=== PATIENT | male | born 1955 | race Native Hawaiian/Other Pacific Islander ===

== ENCOUNTER 2016-10-26 11:57 | Inpatient (IN) | payer SELFPAY ==
[2016-10-26 11:58] VITALS: BMI 22.1
[2016-10-26 14:19] LABS: BASO # 0.1 K/uL (0.0-0.2); BASO % 1.3 % (0.0-2.0); EOS % 0.1 % (0.0-4.0); LYMPH # 5.6 K/uL (1.0-4.3); LYMPH % 48.5 % (20.0-40.0); MEAN CELL VOLUME 97.7 fL (80.0-94.0); MEAN CORPUSCULAR HEMOGLOBIN 32.1 pg (27.0-31.0); MEAN CORPUSCULAR HGB CONC 32.9 g/dL (33.0-37.0); MEAN PLATELET VOLUME 10.3 fL (7.2-11.7); MONO # 1.2 K/uL (0.0-0.8); MONO % 10.1 % (0.0-10.0); NRBC % 0.1 % (0.0-2.0); RED CELL DISTRIBUTION WIDTH 13.9 % (11.5-14.5); WHITE BLOOD COUNT 11.5 K/uL (4.8-10.8)
[2016-10-26 14:29] LABS: CHLORIDE 95 mmol/L (98-107); POTASSIUM 4.2 mmol/L (3.6-5.2); SODIUM 133 mmol/L (132-148)
[2016-10-26 14:32] LABS: ALB/GLOB RATIO 2.2 (1.0-2.1); ALKALINE PHOSPHATASE 79 U/L (38-126); ALT/SGPT 36 U/L (21-72); AST/SGOT 29 U/L (17-59); BILIRUBIN,TOTAL 0.9 mg/dL (0.2-1.3); BLOOD UREA NITROGEN 14 mg/dL (9-20); CARBON DIOXIDE 25 mmol/L (22-30); GFR AFRICAN-AMERICAN > 60; GLUCOSE,RANDOM 92 mg/dL (75-110); TOTAL PROTEIN 7.5 g/dL (6.3-8.3)
--- NOTE | 2016-10-26 15:05 | RAD ---
PROCEDURE: CHEST RADIOGRAPH, 1 VIEW. Portable study 12:45 HISTORY: SOB COMPARISON: 12/23/2012 FINDINGS: LUNGS: Clear. PLEURA: No pneumothorax or pleural fluid seen. CARDIOVASCULAR: No radiographic findings to suggest acute or significant cardiovascular disease. Venous access catheter in stable, satisfactory position. OSSEOUS STRUCTURES: No significant abnormalities. VISUALIZED UPPER ABDOMEN: Normal. OTHER FINDINGS: None. IMPRESSION: No active disease. No acute/significant interval changes.
--- NOTE | 2016-10-26 15:37 | C.PDOC ---
History Of Present Illness 61 yr old male presents to the ER with complaints of rash to the right arm for the last week. Patient reports history of similar rash to different parts of body and with multiple different diagnosis. Patient also reports history of CLL , last chemo was 18 months ago and is on post chemo medication for white blood cells. Patient denies fever, chills, chest pain, SOB, nausea, vomiting, abdominal pain, weakness or numbness. Time Seen by Provider: 10/26/16 13:21 Chief Complaint (Nursing): Abnormal Skin Integrity History Per: Patient History/Exam Limitations: no limitations Onset/Duration Of Symptoms: Days (! week ) Past Medical History Reviewed: Historical Data, Nursing Documentation, Vital Signs Vital Signs: Last Vital Signs Temp 98.2 F 10/26/16 15:59 Pulse 93 H 10/26/16 15:59 Resp 18 10/26/16 15:59 BP 104/70 10/26/16 15:59 Pulse Ox 96 10/26/16 15:59 - Medical History PMH: Diabetes, HTN, Hypercholesterolemia, Hypothyroidism - [facility] Procedures PACKED CELL TRANSFUSION (12/23/12) PLATELET TRANSFUSION (12/23/12) Family History: States: No Known Family Hx - Social History Hx Tobacco Use: No Hx Alcohol Use: No Hx Substance Use: No - Immunization History Hx Tetanus Toxoid Vaccination: No Review Of Systems Except As Marked, All Systems Reviewed And Found Negative. Constitutional: Negative for: Fever, Chills Cardiovascular: Negative for: Chest Pain Respiratory: Negative for: Shortness of Breath Gastrointestinal: Negative for: Nausea, Vomiting, Abdominal Pain Skin: Positive for: Rash (Right arm ) Neurological: Negative for: Weakness, Numbness Physical Exam - Physical Exam Appears: Well, Non-toxic, No Acute Distress Skin: Warm, Dry, Rash (Vesicular rash from the right upper arm to the mid forearm, medial aspect with confluent fluid filled vesicles in various stages of eruption. Occasional dark scabs, mildly pruritic. Non tender. ) Head: Atraumatic, Normacephalic Eye(s): bilateral: Normal Inspection, PERRL, EOMI Chest: Symmetrical, No Tenderness Cardiovascular: Rhythm Regular, No Murmur Respiratory: Normal Breath Sounds, No Rales, No Rhonchi, No Wheezing Extremity: Normal ROM, No Swelling Neurological/Psych: Oriented x3, Normal Speech, Normal Motor ED Course And Treatment - Laboratory Results Result Diagrams: 10/26/16 14:14 10/26/16 14:14 Lab Interpretation: Abnormal (mild leukocytosis ? related to local infection of R arm/rash or Enbrovika to elevate WBC's) ECG: Interpreted By Me ECG Rhythm: Sinus Rhythm ECG Interpretation: Normal Rate From EC (BPM ) O2 Sat by Pulse Oximetry: 96 (RA) Pulse Ox Interpretation: Normal - Radiology CXR: Interpreted by Me CXR Interpretation: Yes: No Acute Disease Progress Note: defer abx until dx with Hospitalists, as this is a chronic problem with prior dx and ? related to his CLL Reevaluation Time: 15:36 Reassessment Condition: Improved - Physician Consult Information Outcome Of Conversation: 1340: d/w Dr. Davis Azevedo- will consult, unaware of prior rash for this pt. 1350: d/w Dr. Phelps- Hospitalist Face Man- ok to Obs, will eval and abx prn Medical Decision Making Medical Decision Making: PLAN: * CXR * EKG * Troponin * CBC * CMP * Motrin PO Disposition Doctor Will See Patient In The: Hospital Counseled Patient/Family Regarding: Studies Performed, Diagnosis - Disposition Disposition: HOSPITALIZED Disposition Time: 15:37 Condition: FAIR - Clinical Impression Clinical Impression: Skin lesion - Scribe Statement The provider has reviewed the documentation as recorded by the Jamiibromario Cordero Provider Attestation: All medical record entries made by the Kristofer were at my direction and personally dictated by me. I have reviewed the chart and agree that the record accurately reflects my personal performance of the history, physical exam, medical decision making, and the department course for this patient. I have also personally directed, reviewed, and agree with the discharge instructions and disposition.
[2016-10-26] MEDS: Metoprolol Succinate 25 mg XL Tab PO SCH (18:33)
[2016-10-26] MEDS ORDERED: Epinephrine /Lidocaine HCL 1:100,000/2% 30 ml INFIL ONE (19:00)
--- NOTE | 2016-10-26 21:51 | CP.PCM.HP ---
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 Patient reports the rash is affecting his upper arms and trunk. He first developed the rash approximately one year ago. He states it usually affects his arms, abdomen, and chest and describes it has pustules and "fluid-filled" small bumps that eventually leak fluid. The rash he developed yesterday was more severe with larger vesicles/bullae with some dark fluid filled lesions which is an atypical presentation for him. He admits to pruritus and pain to the right extremity where the process is most severe. Patient denies starting any new prescribed or agza-esp-moebowh medications. He notes his manager fashion/oncologist , Dr. Azevedo, started him on Imbruvica which has significantly helped his condition. He also denies sun exposure. Patient believes his rash is associated with his CLL. He has not tried using ointment/cream for the rash. Patient denies family history of skin disease. Patient denies fever, chills, diaphoresis , chest pain, shortness of breath, nausea, vomiting, abdominal pain, lower extremity swelling/pain. PMD: Dr. Yady Simonsc: Dr. Azevedo PMH: as per HPI Medications: Imbruvica 140 mg 3 capsules po daily, Lisinopril 2.5 mg po daily, Metformin 500 mg po BID, Levothyroxine 112 mcg po AM, and Vitamin D3 5000 IU once weekly Allergies: rituximab, peanut, Simvastatin Family History: not-pertinent Surgical History: Right port-a-cath placement Social: denies tobacco, alcohol, and illicit drug use Present on Admission - Present on Admission Any Indicators Present on Admission: No History of DVT/PE: No History of Uncontrolled Diabetes: No Urinary Catheter: No Decubitus Ulcer Present: No Review of Systems - Constitutional Constitutional: absent: Chills, Fever, Headache, Night Sweats - EENT Eyes: absent: Blurred Vision, Change in Vision Nose/Mouth/Throat: absent: Nasal Congestion, Nasal Discharge - Cardiovascular Cardiovascular: absent: Chest Pain, Diaphoresis, Dyspnea, Leg Edema, Palpitations - Respiratory Respiratory: absent: Cough - Gastrointestinal Gastrointestinal: absent: Abdominal Pain, Constipation, Diarrhea, Nausea, Vomiting - Genitourinary Genitourinary: absent: Difficulty Urinating, Dysuria - Musculoskeletal Musculoskeletal: Radiating Pain into Limb. absent: Back Pain - Integumentary Integumentary: Changing Lesions, Lesions, Pruritus, Rash, Skin Pain - Neurological Neurological: absent: Abnormal Gait, Numbness, Tingling, Weakness - Psychiatric Psychiatric: absent: Anxiety, Depression Past Patient History - Past Medical History & Family History Past Medical History?: Yes - Past Social History Smoking Status: Never Smoked - CARDIAC Hx Hypercholesterolemia: Yes Hx Hypertension: Yes - PULMONARY Hx Respiratory Disorders: No - NEUROLOGICAL Hx Neurological Disorder: No - HEENT Hx HEENT Problems: No - RENAL Hx Chronic Kidney Disease: No - ENDOCRINE/METABOLIC Hx Hypothyroidism: Yes - HEMATOLOGICAL/ONCOLOGICAL Hx Leukemia: Yes (CLL) - INTEGUMENTARY Hx Dermatological Problems: No - MUSCULOSKELETAL/RHEUMATOLOGICAL Hx Musculoskeletal Disorders: No Hx Falls: No - GASTROINTESTINAL Hx Gastrointestinal Disorders: Yes Hx Hemorrhoids: Yes - GENITOURINARY/GYNECOLOGICAL Hx Genitourinary Disorders: No - PSYCHIATRIC Hx Substance Use: No - SURGICAL HISTORY Hx Surgeries: Yes Hx Vascular Access Device: Yes (RIGHT STEVEN CATH) - ANESTHESIA Hx Anesthesia: Yes Hx Anesthesia Reactions: No Meds Allergies/Adverse Reactions: Allergies Allergy/AdvReac Type Severity Reaction Status Date / Time rituximab Allergy Severe SHORTNESS Verified 10/26/16 12:18 OF BREATH peanut Allergy Mild ITCHING Verified 10/26/16 12:18 Physical Exam - Constitutional Appears: Non-toxic - Head Exam Head Exam: ATRAUMATIC, NORMAL INSPECTION, NORMOCEPHALIC - Eye Exam Eye Exam: EOMI, Normal appearance, PERRL. absent: Scleral icterus - ENT Exam ENT Exam: Mucous Membranes Dry Additional comments: no oral ulcerations/lesions noted - Neck Exam Neck exam: Positive for: Full Rom. Negative for: Lymphadenopathy, Tenderness - Respiratory Exam Respiratory Exam: Clear to Auscultation Bilateral, NORMAL BREATHING PATTERN. absent: Rales, Rhonchi, Wheezes - Cardiovascular Exam Cardiovascular Exam: REGULAR RHYTHM, +S1, +S2 - GI/Abdominal Exam GI & Abdominal Exam: Normal Bowel Sounds, Soft. absent: Distended, Firm, Rigid - Extremities Exam Extremities exam: Positive for: normal capillary refill, pedal pulses present. Negative for: pedal edema, tenderness - Back Exam Back exam: rash noted. absent: NORMAL INSPECTION Additional comments: multiple grouped tense vesicles to right upper back - Neurological Exam Neurological exam: Alert, CN II-XII Intact, Oriented x3 - Psychiatric Exam Psychiatric exam: Normal Affect, Normal Mood - Skin Additional comments: pustules, vesicles ranging in size, and dark crusted lesions affecting most severely right forearm from wrist to antecubital fossa grouped tense vesicles to R olecronon, lateral axilla, and right upper back few pustules and vesicles affecting left upper extremity multiple 1 mm pustules to abdomen, chest and neck Results - Vital Signs Recent Vital Signs: Last Vital Signs Temp 98.2 F 10/26/16 15:59 Pulse 93 H 10/26/16 15:59 Resp 18 10/26/16 15:59 BP 104/70 10/26/16 15:59 Pulse Ox 96 10/26/16 18:28 - Labs Result Diagrams: 10/26/16 14:14 10/26/16 14:14 Labs: Laboratory Results - last 24 hr 10/26/16 18:01 POC Glucose (mg/dL) 257 H Assessment & Plan - Assessment and Plan (Free Text) Assessment: Vesicular/Pustular Rash rule out porphyria cutanea tarda vs. pseudoporphyria vs. dermatitis herpetiformis vs. other bullous disease Leukocytes 11.5, Hemoglobin 12.8, MCV 97.7 Neutrophil 40.0%, Lymphocytes 48.5, Eos 0.1% f/u 24 hr porphyrins/porphobilinogen f/u porphobilinogen urine, random f/u iron studies f/u endomysial scr IgA, tissue transglutaminase AB IGA, IgA Punch Biopsy x3 performed - sent to [facility] for H&E and direct immunofluorescense Tylenol 650 mg po q6 PRN for pain control Consider starting Hydroxyzine for pruritus Chronic Lymphocytic Leukemia Inspector Open Die/Oncologist, Dr. Azevedo, consulted Patient on Imbruvica 140 mg 3 capsules po daily Diabetes Mellitus Type II RISS Continue home medication Metformin 500 mg po BID Accuchecks Monitor Hypertension 104/70 Continue home medications Lisinopril 2.5 mg po daily and Metoprolol 25 mg po BID Monitor Hyperlipidemia Continue home medication Gemfibrozil 600 mg po BID Prophylaxis SCD Heart Healthy Diet Chemical VTE CI due to thrombocytopenia - Date & Time Date: 10/26/16 Time: 22:22 <Francisco Javier Pineda - Last Filed: 10/27/16 08:48> Results - Vital Signs Recent Vital Signs: Last Vital Signs Temp 98.3 F 10/27/16 08:34 Pulse 80 10/27/16 08:34 Resp 20 10/27/16 08:34 BP 116/76 10/27/16 08:34 Pulse Ox 96 10/27/16 08:34 - Labs Result Diagrams: 10/26/16 14:14 10/26/16 14:14 Labs: Laboratory Results - last 24 hr 10/26/16 10/26/16 10/27/16 18:01 21:59 07:49 POC Glucose (mg/dL) 257 H 111 H Iron 44 L IgA 10/27/16 07:49 POC Glucose (mg/dL) Iron IgA 70.5 Attending/Attestation - Attestation I have personally seen and examined this patient.: Yes I have fully participated in the care of the patient.: Yes I have reviewed all pertinent clinical information: Yes Notes (Text): 10/27/16 08:48 Patient was seen and examined at bedside with the resident at the time of admission Discussed the plan of care with the resident and agree with the above history and physical and assessment/plan but the resident.
[2016-10-26] MEDS: Bacitracin 500 Units/gm Oint Foilpak UD TOP SCH (22:43)
[2016-10-27] MEDS: (Novolog) Insulin Aspart, Recombinant 100 u/ml 10 ml vial SC SCH ×3 (08:25→16:25)
[2016-10-27 08:39] LABS: IRON 44 ug/dL (49-181)
[2016-10-27] MEDS: Metoprolol Succinate 25 mg XL Tab PO SCH ×2 (10:07→17:23)
[2016-10-27] MEDS ORDERED: Tramadol 25 mg PO PRN (11:51)
[2016-10-27] MEDS: Bacitracin Ointment 30 GM TUBE TOP SCH (12:22)
[2016-10-27] MEDS: Bacitracin 500 Units/gm Oint Foilpak UD TOP SCH (12:23)
--- NOTE | 2016-10-27 15:43 | CP.PCM.PN ---
<López Brown - Last Filed: 10/27/16 19:57> Subjective - Date & Time of Evaluation Date of Evaluation: 10/27/16 Time of Evaluation: 11:00 - Subjective Subjective: Dr. Pineda note: Patient seen in room with medical attending Dr. Pineda. Patient is still complaing of sharp pain and a rash on his right arm. He says the pain going around the inner part of his hand to the middle and is a deep and sharp pain. He says the pain start when he started notice the rash develop about a year ago. Objective - Vital Signs/Intake and Output Vital Signs (last 24 hours): Temp Pulse Resp BP Pulse Ox 98.3 F 80 20 116/76 96 10/27/16 08:34 10/27/16 08:34 10/27/16 08:34 10/27/16 08:34 10/27/16 08:34 Intake and Output: 10/27/16 10/27/16 06:59 18:59 Intake Total 200 Output Total 550 Balance -350 - Medications Medications: Current Medications Acetaminophen (Tylenol 325mg Tab) 650 mg PO Q6 PRN PRN Reason: Pain, Mild (1-3) Last Admin: 10/27/16 06:46 Dose: 650 mg Bacitracin (Bacitracin) 0 gm TOP DAILY [facility] Last Admin: 10/27/16 12:22 Dose: 1 applic Gabapentin (Neurontin) 100 mg PO TID [facility] Last Admin: 10/27/16 14:17 Dose: 100 mg Gemfibrozil (Lopid) 600 mg PO BID [facility] Last Admin: 10/27/16 10:07 Dose: 600 mg Acyclovir 650 mg/ Sodium (Chloride) 100 mls @ 100 mls/hr IV Q8H [facility] Last Admin: 10/27/16 14:17 Dose: 100 mls/hr Insulin Aspart (Novolog) 0 unit SC TIDAC [facility] PRN Reason: Protocol Last Admin: 10/27/16 12:21 Dose: 2 unit Levothyroxine Sodium (Synthroid) 150 mcg PO DAILY@0630 [facility] Lisinopril (Zestril) 2.5 mg PO DAILY [facility] Last Admin: 10/27/16 10:07 Dose: 2.5 mg Metformin HCl (Glucophage) 500 mg PO BID [facility] Last Admin: 10/27/16 10:06 Dose: 500 mg Metoprolol Succinate (Toprol Xl) 25 mg PO BID [facility] Last Admin: 10/27/16 10:07 Dose: 25 mg Tramadol HCl (Ultram) 50 mg PO TID PRN PRN Reason: Pain, moderate (4-7) Last Admin: 10/27/16 12:21 Dose: 50 mg - Constitutional Appears: Non-toxic, No Acute Distress - Head Exam Head Exam: NORMAL INSPECTION - Eye Exam Pupil Exam: NORMAL ACCOMODATION - Respiratory Exam Respiratory Exam: Clear to Ausculation Bilateral - Cardiovascular Exam Cardiovascular Exam: REGULAR RHYTHM, RRR, +S1, +S2. absent: Gallop, Rubs - GI/Abdominal Exam GI & Abdominal Exam: Soft, Normal Bowel Sounds. absent: Tenderness - Extremities Exam Extremities Exam: Normal Inspection - Back Exam Back Exam: NORMAL INSPECTION - Psychiatric Exam Psychiatric exam: Normal Affect, Normal Mood Assessment and Plan - Assessment and Plan (Free Text) Assessment: Vesicular/Pustular Rash 10/27: Biopsy taken yesterday, have started Acyclovir because this could be Herpis Zoster, consulted ID Dr. Blunt and also have put patient in contact isolation. Iron studies show iron is low but ferritin is normal, other labs and biopsy results pending. rule out porphyria cutanea tarda vs. pseudoporphyria vs. dermatitis herpetiformis vs. other bullous disease Leukocytes 11.5, Hemoglobin 12.8, MCV 97.7 Neutrophil 40.0%, Lymphocytes 48.5, Eos 0.1% f/u 24 hr porphyrins/porphobilinogen f/u porphobilinogen urine, random f/u iron studies f/u endomysial scr IgA, tissue transglutaminase AB IGA, IgA Punch Biopsy x3 performed - sent to [facility] for H&E and direct immunofluorescense Tylenol 650 mg po q6 PRN for pain control Consider starting Hydroxyzine for pruritus Chronic Lymphocytic Leukemia Fiber Optic Assembler/Oncologist, Dr. Azevedo, consulted Patient on Imbruvica 140 mg 3 capsules po daily Diabetes Mellitus Type II RISS Continue home medication Metformin 500 mg po BID Accuchecks Monitor Hypertension 104/70 Continue home medications Lisinopril 2.5 mg po daily and Metoprolol 25 mg po BID Monitor Hyperlipidemia Continue home medication Gemfibrozil 600 mg po BID Prophylaxis SCD Heart Healthy Diet Chemical VTE CI due to thrombocytopenia <Francisco Javier Pineda M - Last Filed: 10/28/16 07:57> Objective - Vital Signs/Intake and Output Vital Signs (last 24 hours): Temp Pulse Resp BP Pulse Ox 100.8 F H 103 H 20 102/69 94 L 10/27/16 23:23 10/27/16 23:23 10/27/16 23:23 10/27/16 23:23 10/27/16 23:23 Intake and Output: 10/28/16 10/28/16 06:59 18:59 Intake Total 1000 Output Total 900 Balance 100 - Medications Medications: Current Medications Acetaminophen (Tylenol 325mg Tab) 650 mg PO Q6 PRN PRN Reason: Pain, Mild (1-3) Last Admin: 10/27/16 06:46 Dose: 650 mg Bacitracin (Bacitracin) 0 gm TOP DAILY [facility] Last Admin: 10/27/16 12:22 Dose: 1 applic Gabapentin (Neurontin) 100 mg PO TID [facility] Last Admin: 10/27/16 17:23 Dose: 100 mg Gemfibrozil (Lopid) 600 mg PO BID [facility] Last Admin: 10/27/16 17:23 Dose: 600 mg Acyclovir 650 mg/ Sodium (Chloride) 100 mls @ 100 mls/hr IV Q8H [facility] Last Admin: 10/28/16 05:10 Dose: 100 mls/hr Insulin Aspart (Novolog) 0 unit SC TIDAC [facility] PRN Reason: Protocol Last Admin: 10/27/16 16:25 Dose: Not Given Levothyroxine Sodium (Synthroid) 150 mcg PO DAILY@0630 [facility] Last Admin: 10/28/16 06:02 Dose: 150 mcg Lisinopril (Zestril) 2.5 mg PO DAILY [facility] Last Admin: 10/27/16 10:07 Dose: 2.5 mg Metformin HCl (Glucophage) 500 mg PO BID [facility] Last Admin: 10/27/16 17:24 Dose: 500 mg Metoprolol Succinate (Toprol Xl) 25 mg PO BID [facility] Last Admin: 10/27/16 17:23 Dose: 25 mg Tramadol HCl (Ultram) 50 mg PO TID PRN PRN Reason: Pain, moderate (4-7) Last Admin: 10/27/16 12:21 Dose: 50 mg - Labs Labs: 10/27/16 17:17 10/27/16 17:17 Attending/Attestation - Attestation I have personally seen and examined this patient.: Yes I have fully participated in the care of the patient.: Yes I have reviewed all pertinent clinical information, including history, physical exam and plan: Yes Notes (Text): 10/28/16 07:56 Patient seen and examined at bedside The rash is becoming painful and confluent Likely herpes zoster in view of patient's immunocompromise state with CLL although in remission We will put the patient in isolation and start acyclovir I would also requested infectious disease consultation I agree with the history and physical and assessment/plan by the resident with the necessary amendments stated here.
[2016-10-27 17:46] LABS: BASO % 0.6 % (0.0-2.0); EOS % 0.1 % (0.0-4.0); LYMPH # 2.8 K/uL (1.0-4.3); LYMPH % 33.9 % (20.0-40.0); MEAN CELL VOLUME 98.4 fL (80.0-94.0); MEAN CORPUSCULAR HEMOGLOBIN 32.6 pg (27.0-31.0); MEAN CORPUSCULAR HGB CONC 33.2 g/dL (33.0-37.0); MEAN PLATELET VOLUME 9.9 fL (7.2-11.7); MONO # 0.9 K/uL (0.0-0.8); MONO % 10.6 % (0.0-10.0); NRBC % 0.1 % (0.0-2.0); PLATELET COUNT 122 K/uL (130-400); RED CELL DISTRIBUTION WIDTH 13.7 % (11.5-14.5); WHITE BLOOD COUNT 8.4 K/uL (4.8-10.8)
[2016-10-27 17:56] LABS: CHLORIDE 92 mmol/L (98-107); POTASSIUM 4.3 mmol/L (3.6-5.2); SODIUM 130 mmol/L (132-148)
[2016-10-27 17:58] LABS: ALB/GLOB RATIO 1.7 (1.0-2.1); ALKALINE PHOSPHATASE 70 U/L (38-126); AST/SGOT 28 U/L (17-59); BILIRUBIN,TOTAL 0.6 mg/dL (0.2-1.3); CARBON DIOXIDE 25 mmol/L (22-30); GFR AFRICAN-AMERICAN > 60; TOTAL PROTEIN 6.5 g/dL (6.3-8.3)
[2016-10-27 17:59] LABS: ALT/SGPT 31 U/L (21-72); BLOOD UREA NITROGEN 17 mg/dL (9-20); CALCIUM 8.5 mg/dl (8.6-10.4); GLUCOSE,RANDOM 92 mg/dL (75-110)
[2016-10-27 18:24] LABS: METAMYELOCYTE 1 % (0-0); MYELOCYTE 4 % (0-0); NEUTROPHIL 29 % (50-75); TOTAL CELLS COUNTED 100
[2016-10-27 18:25] LABS: LARGE PLATELETS PRESENT
--- NOTE | 2016-10-27 20:42 | CP.PCM.CON ---
History of Present Illness - History of Present Illness History of Present Illness: 61 year old male with a history of CLL on Imbruvica admitted with a vesicular rash involving his right upper extremity. He noticed non tender vesicles erupt over his right arm which then became more erythematous and painful. This concerned him and prompted him to come to the ER. He denies fevers and chills. Past medical history: HTN, CLL Past surgical history: None Family history: Denies hematologic and oncologic problems Social history: Denies tobacco, alcohol, and illicit drug use. Allergies: NKDA Review of systems: All remaining review of systems including HEENT, cardiovascular, respiratory, gastrointestinal, genitourinary, musculoskeletal, dermatologic, neurologic, and psychiatric are negative unless mentioned in the HPI. Past Patient History - Past Medical History & Family History Past Medical History?: Yes - Past Social History Smoking Status: Never Smoked - CARDIAC Hx Hypercholesterolemia: Yes Hx Hypertension: Yes - PULMONARY Hx Respiratory Disorders: No - NEUROLOGICAL Hx Neurological Disorder: No - HEENT Hx HEENT Problems: No - RENAL Hx Chronic Kidney Disease: No - ENDOCRINE/METABOLIC Hx Hypothyroidism: Yes - HEMATOLOGICAL/ONCOLOGICAL Hx Leukemia: Yes (CLL) - INTEGUMENTARY Hx Dermatological Problems: No - MUSCULOSKELETAL/RHEUMATOLOGICAL Hx Musculoskeletal Disorders: No Hx Falls: No - GASTROINTESTINAL Hx Gastrointestinal Disorders: Yes Hx Hemorrhoids: Yes - GENITOURINARY/GYNECOLOGICAL Hx Genitourinary Disorders: No - PSYCHIATRIC Hx Substance Use: No - SURGICAL HISTORY Hx Surgeries: Yes Hx Vascular Access Device: Yes (RIGHT STEVEN CATH) - ANESTHESIA Hx Anesthesia: Yes Hx Anesthesia Reactions: No Meds Allergies/Adverse Reactions: Allergies Allergy/AdvReac Type Severity Reaction Status Date / Time rituximab Allergy Severe SHORTNESS Verified 10/26/16 12:18 OF BREATH peanut Allergy Mild ITCHING Verified 10/26/16 12:18 - Medications Medications: Current Medications Acetaminophen (Tylenol 325mg Tab) 650 mg PO Q6 PRN PRN Reason: Pain, Mild (1-3) Last Admin: 10/27/16 06:46 Dose: 650 mg Bacitracin (Bacitracin) 0 gm TOP DAILY [facility] Last Admin: 10/27/16 12:22 Dose: 1 applic Gabapentin (Neurontin) 100 mg PO TID [facility] Last Admin: 10/27/16 17:23 Dose: 100 mg Gemfibrozil (Lopid) 600 mg PO BID [facility] Last Admin: 10/27/16 17:23 Dose: 600 mg Acyclovir 650 mg/ Sodium (Chloride) 100 mls @ 100 mls/hr IV Q8H [facility] Last Admin: 10/27/16 14:17 Dose: 100 mls/hr Insulin Aspart (Novolog) 0 unit SC TIDAC [facility] PRN Reason: Protocol Last Admin: 10/27/16 16:25 Dose: Not Given Levothyroxine Sodium (Synthroid) 150 mcg PO DAILY@0630 [facility] Lisinopril (Zestril) 2.5 mg PO DAILY [facility] Last Admin: 10/27/16 10:07 Dose: 2.5 mg Metformin HCl (Glucophage) 500 mg PO BID [facility] Last Admin: 10/27/16 17:24 Dose: 500 mg Metoprolol Succinate (Toprol Xl) 25 mg PO BID [facility] Last Admin: 10/27/16 17:23 Dose: 25 mg Tramadol HCl (Ultram) 50 mg PO TID PRN PRN Reason: Pain, moderate (4-7) Last Admin: 10/27/16 12:21 Dose: 50 mg Physical Exam - Head Exam Head Exam: ATRAUMATIC - Eye Exam Eye Exam: Normal appearance - ENT Exam ENT Exam: Mucous Membranes Dry - Respiratory Exam Respiratory Exam: NORMAL BREATHING PATTERN - Cardiovascular Exam Cardiovascular Exam: +S1, +S2 - GI/Abdominal Exam GI & Abdominal Exam: Normal Bowel Sounds - Neurological Exam Neurological exam: Oriented x3 - Psychiatric Exam Psychiatric exam: Normal Affect, Normal Mood - Skin Skin Exam: Warm Results - Vital Signs Recent Vital Signs: Last Vital Signs Temp 98.3 F 10/27/16 16:36 Pulse 108 H 10/27/16 16:36 Resp 20 10/27/16 16:36 BP 122/78 10/27/16 16:36 Pulse Ox 98 10/27/16 16:36 - Labs Result Diagrams: 10/27/16 17:17 10/27/16 17:17 Labs: Laboratory Results - last 24 hr 10/26/16 10/27/16 10/27/16 21:59 07:49 07:49 WBC RBC Hgb Hct MCV MCH MCHC RDW Plt Count MPV Neut % (Auto) Lymph % (Auto) [place] % (Auto) Eos % (Auto) Baso % (Auto) Neut # Lymph # [place] # Eos # Baso # Neutrophils % (Manual) Band Neutrophils % Lymphocytes % (Manual) Monocytes % (Manual) Metamyelocytes % Myelocytes % Platelet Estimate Large Platelets Hypochromasia (manual) Anisocytosis (manual) Microcytosis (manual) Macrocytosis (manual) Sodium Potassium Chloride Carbon Dioxide Anion Gap BUN Creatinine Est GFR ( Amer) Est GFR (Non-Af Amer) POC Glucose (mg/dL) 111 H Random Glucose Calcium Iron 44 L TIBC 304 % Saturation 15 L 21 Ferritin Total Bilirubin AST ALT Alkaline Phosphatase Total Protein Albumin Globulin Albumin/Globulin Ratio IgA 10/27/16 10/27/16 10/27/16 07:49 07:49 08:05 WBC RBC Hgb Hct MCV MCH MCHC RDW Plt Count MPV Neut % (Auto) Lymph % (Auto) [place] % (Auto) Eos % (Auto) Baso % (Auto) Neut # Lymph # [place] # Eos # Baso # Neutrophils % (Manual) Band Neutrophils % Lymphocytes % (Manual) Monocytes % (Manual) Metamyelocytes % Myelocytes % Platelet Estimate Large Platelets Hypochromasia (manual) Anisocytosis (manual) Microcytosis (manual) Macrocytosis (manual) Sodium Potassium Chloride Carbon Dioxide Anion Gap BUN Creatinine Est GFR ( Amer) Est GFR (Non-Af Amer) POC Glucose (mg/dL) 109 Random Glucose Calcium Iron TIBC % Saturation Ferritin 1520.0 Total Bilirubin AST ALT Alkaline Phosphatase Total Protein Albumin Globulin Albumin/Globulin Ratio IgA 70.5 10/27/16 10/27/16 10/27/16 11:27 16:14 17:17 WBC 8.4 RBC 3.76 L Hgb 12.3 Hct 37.0 MCV 98.4 H MCH 32.6 H MCHC 33.2 RDW 13.7 Plt Count 122 L MPV 9.9 Neut % (Auto) 54.8 Lymph % (Auto) 33.9 [place] % (Auto) 10.6 H Eos % (Auto) 0.1 Baso % (Auto) 0.6 Neut # 4.6 Lymph # 2.8 [place] # 0.9 H Eos # 0.0 Baso # 0.0 Neutrophils % (Manual) 29 L Band Neutrophils % 3 H Lymphocytes % (Manual) 57 H Monocytes % (Manual) 6 Metamyelocytes % 1 H Myelocytes % 4 H Platelet Estimate Slightly decreased L Large Platelets Present Hypochromasia (manual) Slight Anisocytosis (manual) Slight Microcytosis (manual) Slight Macrocytosis (manual) Slight Sodium Potassium Chloride Carbon Dioxide Anion Gap BUN Creatinine Est GFR ( Amer) Est GFR (Non-Af Amer) POC Glucose (mg/dL) 179 H 121 H Random Glucose Calcium Iron TIBC % Saturation Ferritin Total Bilirubin AST ALT Alkaline Phosphatase Total Protein Albumin Globulin Albumin/Globulin Ratio IgA 10/27/16 17:17 WBC RBC Hgb Hct MCV MCH MCHC RDW Plt Count MPV Neut % (Auto) Lymph % (Auto) [place] % (Auto) Eos % (Auto) Baso % (Auto) Neut # Lymph # [place] # Eos # Baso # Neutrophils % (Manual) Band Neutrophils % Lymphocytes % (Manual) Monocytes % (Manual) Metamyelocytes % Myelocytes % Platelet Estimate Large Platelets Hypochromasia (manual) Anisocytosis (manual) Microcytosis (manual) Macrocytosis (manual) Sodium 130 L Potassium 4.3 Chloride 92 L Carbon Dioxide 25 Anion Gap 17 BUN 17 Creatinine 0.9 Est GFR ( Amer) > 60 Est GFR (Non-Af Amer) > 60 POC Glucose (mg/dL) Random Glucose 92 Calcium 8.5 L Iron TIBC % Saturation Ferritin Total Bilirubin 0.6 AST 28 ALT 31 Alkaline Phosphatase 70 Total Protein 6.5 Albumin 4.1 Globulin 2.4 Albumin/Globulin Ratio 1.7 IgA Assessment & Plan (1) Anemia Assessment and Plan: chronic disease, CLL and Imbruvica no transfusion indication Status: Acute (2) Thrombocytopenia Assessment and Plan: CLL and Imbruvica mild Status: Acute (3) CLL (chronic lymphocytic leukemia) Assessment and Plan: on Imbruvica in remission Thank you for this interesting consult. Status: Acute
--- NOTE | 2016-10-27 22:05 | CP.PCM.CON ---
History of Present Illness - History of Present Illness History of Present Illness: dictated Past Patient History - Past Medical History & Family History Past Medical History?: Yes - Past Social History Smoking Status: Never Smoked - CARDIAC Hx Hypercholesterolemia: Yes Hx Hypertension: Yes - PULMONARY Hx Respiratory Disorders: No - NEUROLOGICAL Hx Neurological Disorder: No - HEENT Hx HEENT Problems: No - RENAL Hx Chronic Kidney Disease: No - ENDOCRINE/METABOLIC Hx Hypothyroidism: Yes - HEMATOLOGICAL/ONCOLOGICAL Hx Leukemia: Yes (CLL) - INTEGUMENTARY Hx Dermatological Problems: No - MUSCULOSKELETAL/RHEUMATOLOGICAL Hx Musculoskeletal Disorders: No Hx Falls: No - GASTROINTESTINAL Hx Gastrointestinal Disorders: Yes Hx Hemorrhoids: Yes - GENITOURINARY/GYNECOLOGICAL Hx Genitourinary Disorders: No - PSYCHIATRIC Hx Substance Use: No - SURGICAL HISTORY Hx Surgeries: Yes Hx Vascular Access Device: Yes (RIGHT STEVEN CATH) - ANESTHESIA Hx Anesthesia: Yes Hx Anesthesia Reactions: No Meds Allergies/Adverse Reactions: Allergies Allergy/AdvReac Type Severity Reaction Status Date / Time rituximab Allergy Severe SHORTNESS Verified 10/26/16 12:18 OF BREATH peanut Allergy Mild ITCHING Verified 10/26/16 12:18 - Medications Medications: Current Medications Acetaminophen (Tylenol 325mg Tab) 650 mg PO Q6 PRN PRN Reason: Pain, Mild (1-3) Last Admin: 10/27/16 06:46 Dose: 650 mg Bacitracin (Bacitracin) 0 gm TOP DAILY [facility] Last Admin: 10/27/16 12:22 Dose: 1 applic Gabapentin (Neurontin) 100 mg PO TID [facility] Last Admin: 10/27/16 17:23 Dose: 100 mg Gemfibrozil (Lopid) 600 mg PO BID [facility] Last Admin: 10/27/16 17:23 Dose: 600 mg Acyclovir 650 mg/ Sodium (Chloride) 100 mls @ 100 mls/hr IV Q8H [facility] Last Admin: 10/27/16 21:06 Dose: 100 mls/hr Insulin Aspart (Novolog) 0 unit SC TIDAC [facility] PRN Reason: Protocol Last Admin: 10/27/16 16:25 Dose: Not Given Levothyroxine Sodium (Synthroid) 150 mcg PO DAILY@0630 [facility] Lisinopril (Zestril) 2.5 mg PO DAILY [facility] Last Admin: 10/27/16 10:07 Dose: 2.5 mg Metformin HCl (Glucophage) 500 mg PO BID [facility] Last Admin: 10/27/16 17:24 Dose: 500 mg Metoprolol Succinate (Toprol Xl) 25 mg PO BID [facility] Last Admin: 10/27/16 17:23 Dose: 25 mg Tramadol HCl (Ultram) 50 mg PO TID PRN PRN Reason: Pain, moderate (4-7) Last Admin: 10/27/16 12:21 Dose: 50 mg Results - Vital Signs Recent Vital Signs: Last Vital Signs Temp 98.3 F 10/27/16 16:36 Pulse 108 H 10/27/16 16:36 Resp 20 10/27/16 16:36 BP 122/78 10/27/16 16:36 Pulse Ox 98 10/27/16 16:36 - Labs Result Diagrams: 10/27/16 17:17 10/27/16 17:17 Labs: Laboratory Results - last 24 hr 10/27/16 10/27/16 10/27/16 07:49 07:49 07:49 WBC RBC Hgb Hct MCV MCH MCHC RDW Plt Count MPV Neut % (Auto) Lymph % (Auto) [place] % (Auto) Eos % (Auto) Baso % (Auto) Neut # Lymph # [place] # Eos # Baso # Neutrophils % (Manual) Band Neutrophils % Lymphocytes % (Manual) Monocytes % (Manual) Metamyelocytes % Myelocytes % Platelet Estimate Large Platelets Hypochromasia (manual) Anisocytosis (manual) Microcytosis (manual) Macrocytosis (manual) Sodium Potassium Chloride Carbon Dioxide Anion Gap BUN Creatinine Est GFR ( Amer) Est GFR (Non-Af Amer) POC Glucose (mg/dL) Random Glucose Calcium Iron 44 L TIBC 304 % Saturation 15 L 21 Ferritin 1520.0 Total Bilirubin AST ALT Alkaline Phosphatase Total Protein Albumin Globulin Albumin/Globulin Ratio IgA 10/27/16 10/27/16 10/27/16 07:49 08:05 11:27 WBC RBC Hgb Hct MCV MCH MCHC RDW Plt Count MPV Neut % (Auto) Lymph % (Auto) [place] % (Auto) Eos % (Auto) Baso % (Auto) Neut # Lymph # [place] # Eos # Baso # Neutrophils % (Manual) Band Neutrophils % Lymphocytes % (Manual) Monocytes % (Manual) Metamyelocytes % Myelocytes % Platelet Estimate Large Platelets Hypochromasia (manual) Anisocytosis (manual) Microcytosis (manual) Macrocytosis (manual) Sodium Potassium Chloride Carbon Dioxide Anion Gap BUN Creatinine Est GFR ( Amer) Est GFR (Non-Af Amer) POC Glucose (mg/dL) 109 179 H Random Glucose Calcium Iron TIBC % Saturation Ferritin Total Bilirubin AST ALT Alkaline Phosphatase Total Protein Albumin Globulin Albumin/Globulin Ratio IgA 70.5 10/27/16 10/27/16 10/27/16 16:14 17:17 17:17 WBC 8.4 RBC 3.76 L Hgb 12.3 Hct 37.0 MCV 98.4 H MCH 32.6 H MCHC 33.2 RDW 13.7 Plt Count 122 L MPV 9.9 Neut % (Auto) 54.8 Lymph % (Auto) 33.9 [place] % (Auto) 10.6 H Eos % (Auto) 0.1 Baso % (Auto) 0.6 Neut # 4.6 Lymph # 2.8 [place] # 0.9 H Eos # 0.0 Baso # 0.0 Neutrophils % (Manual) 29 L Band Neutrophils % 3 H Lymphocytes % (Manual) 57 H Monocytes % (Manual) 6 Metamyelocytes % 1 H Myelocytes % 4 H Platelet Estimate Slightly decreased L Large Platelets Present Hypochromasia (manual) Slight Anisocytosis (manual) Slight Microcytosis (manual) Slight Macrocytosis (manual) Slight Sodium 130 L Potassium 4.3 Chloride 92 L Carbon Dioxide 25 Anion Gap 17 BUN 17 Creatinine 0.9 Est GFR ( Amer) > 60 Est GFR (Non-Af Amer) > 60 POC Glucose (mg/dL) 121 H Random Glucose 92 Calcium 8.5 L Iron TIBC % Saturation Ferritin Total Bilirubin 0.6 AST 28 ALT 31 Alkaline Phosphatase 70 Total Protein 6.5 Albumin 4.1 Globulin 2.4 Albumin/Globulin Ratio 1.7 IgA 10/27/16 21:25 WBC RBC Hgb Hct MCV MCH MCHC RDW Plt Count MPV Neut % (Auto) Lymph % (Auto) [place] % (Auto) Eos % (Auto) Baso % (Auto) Neut # Lymph # [place] # Eos # Baso # Neutrophils % (Manual) Band Neutrophils % Lymphocytes % (Manual) Monocytes % (Manual) Metamyelocytes % Myelocytes % Platelet Estimate Large Platelets Hypochromasia (manual) Anisocytosis (manual) Microcytosis (manual) Macrocytosis (manual) Sodium Potassium Chloride Carbon Dioxide Anion Gap BUN Creatinine Est GFR ( Amer) Est GFR (Non-Af Amer) POC Glucose (mg/dL) 160 H Random Glucose Calcium Iron TIBC % Saturation Ferritin Total Bilirubin AST ALT Alkaline Phosphatase Total Protein Albumin Globulin Albumin/Globulin Ratio IgA
--- NOTE | 2016-10-28 04:28 | CP.PCM.PN ---
<Rajat Medina - Last Filed: 10/28/16 07:30> Subjective - Date & Time of Evaluation Date of Evaluation: 10/28/16 Time of Evaluation: 04:25 - Subjective Subjective: PGY-[address] Pineda's service: Pt seen and examined at bedside. Nursing reports no acute events overnight. Pt comfortably watching TV with at bedside. Pt reports his rash has "stopped getting worse," but is still painful especially his right hand. He denies needing to increase his pain meds. He is tolerating diet, and denies problems urinating or moving bowels. He denies fever, chills, abdominal pain, n/v/d/c. Objective - Vital Signs/Intake and Output Vital Signs (last 24 hours): Temp Pulse Resp BP Pulse Ox 100.8 F H 103 H 20 102/69 94 L 10/27/16 23:23 10/27/16 23:23 10/27/16 23:23 10/27/16 23:23 10/27/16 23:23 - Medications Medications: Current Medications Acetaminophen (Tylenol 325mg Tab) 650 mg PO Q6 PRN PRN Reason: Pain, Mild (1-3) Last Admin: 10/27/16 06:46 Dose: 650 mg Bacitracin (Bacitracin) 0 gm TOP DAILY [facility] Last Admin: 10/27/16 12:22 Dose: 1 applic Gabapentin (Neurontin) 100 mg PO TID [facility] Last Admin: 10/27/16 17:23 Dose: 100 mg Gemfibrozil (Lopid) 600 mg PO BID [facility] Last Admin: 10/27/16 17:23 Dose: 600 mg Acyclovir 650 mg/ Sodium (Chloride) 100 mls @ 100 mls/hr IV Q8H [facility] Last Admin: 10/27/16 21:06 Dose: 100 mls/hr Insulin Aspart (Novolog) 0 unit SC TIDAC [facility] PRN Reason: Protocol Last Admin: 10/27/16 16:25 Dose: Not Given Levothyroxine Sodium (Synthroid) 150 mcg PO DAILY@0630 [facility] Lisinopril (Zestril) 2.5 mg PO DAILY [facility] Last Admin: 10/27/16 10:07 Dose: 2.5 mg Metformin HCl (Glucophage) 500 mg PO BID [facility] Last Admin: 10/27/16 17:24 Dose: 500 mg Metoprolol Succinate (Toprol Xl) 25 mg PO BID [facility] Last Admin: 10/27/16 17:23 Dose: 25 mg Tramadol HCl (Ultram) 50 mg PO TID PRN PRN Reason: Pain, moderate (4-7) Last Admin: 10/27/16 12:21 Dose: 50 mg - Labs Labs: 10/27/16 17:17 10/27/16 17:17 - Constitutional Appears: Non-toxic, No Acute Distress - Head Exam Head Exam: ATRAUMATIC, NORMOCEPHALIC - Eye Exam Eye Exam: EOMI Pupil Exam: PERRL - ENT Exam ENT Exam: Mucous Membranes Moist Additional comments: no oral ulcers - Neck Exam Neck Exam: Full ROM - Respiratory Exam Respiratory Exam: Clear to Ausculation Bilateral, NORMAL BREATHING PATTERN. absent: Rales, Rhonchi, Wheezes - Cardiovascular Exam Cardiovascular Exam: REGULAR RHYTHM, +S1, +S2 - GI/Abdominal Exam GI & Abdominal Exam: Soft, Normal Bowel Sounds. absent: Tenderness - Extremities Exam Extremities Exam: absent: Normal Inspection Additional comments: Right extremity showing: Pruritic Vesicular rash, with Skin Pain especially in non-erupted vesicles on right hand Few pustules and vesicles on LUE Multiple 1 mm pustules on abd, chest, neck - Neurological Exam Neurological Exam: Alert, Awake, Oriented x3 - Psychiatric Exam Psychiatric exam: Normal Affect, Normal Mood - Skin Skin Exam: Dry, Normal Color, Warm Assessment and Plan - Assessment and Plan (Free Text) Plan: Vesicular/Pustular Rash 10/28: Awaiting biopsy results, consulted ID Dr. Blunt and also have put patient in contact isolation - Acyclovir 650mg IV Q8H - f/u reccs Iron studies show iron is low but ferritin is normal, other labs and biopsy results pending rule out porphyria cutanea tarda vs. pseudoporphyria vs. dermatitis herpetiformis vs. other bullous disease WBC decreased from 11.5 to 8.4, bands decreasing f/u 24 hr porphyrins/porphobilinogen f/u porphobilinogen urine, random f/u endomysial scr IgA, tissue transglutaminase AB IGA, IgA: 70.5 WNL Punch Biopsy x3 performed - sent to [facility] for H&E and direct immunofluorescense Tylenol 650 mg po q6 PRN, Ultram 50mg PO TID PRN for pain control Chronic Lymphocytic Leukemia Medical Office Technician/Oncologist, Dr. Azevedo, consulted Patient on Imbruvica 140 mg 3 capsules po daily Diabetes Mellitus Type II RISS Continue home medication Metformin 500 mg po BID Accuchecks Monitor Hypertension 104/70 Continue home medications Lisinopril 2.5 mg po daily and Metoprolol 25 mg po BID Monitor Hyperlipidemia Continue home medication Gemfibrozil 600 mg po BID Prophylaxis SCD Heart Healthy Diet Chemical VTE CI due to thrombocytopenia <Francisco Javier Pineda - Last Filed: 10/28/16 15:36> Objective - Vital Signs/Intake and Output Vital Signs (last 24 hours): Temp Pulse Resp BP Pulse Ox 99.3 F 101 H 20 113/73 93 L 10/28/16 09:00 10/28/16 09:00 10/28/16 09:00 10/28/16 09:00 10/28/16 09:00 - Medications Medications: Current Medications Acetaminophen (Tylenol 325mg Tab) 650 mg PO Q6 PRN PRN Reason: Pain, Mild (1-3) Last Admin: 10/27/16 06:46 Dose: 650 mg Bacitracin (Bacitracin) 0 gm TOP DAILY [facility] Last Admin: 10/28/16 10:13 Dose: 1 applic Gabapentin (Neurontin) 100 mg PO TID [facility] Last Admin: 10/28/16 13:39 Dose: 100 mg Gemfibrozil (Lopid) 600 mg PO BID [facility] Last Admin: 10/28/16 10:12 Dose: 600 mg Acyclovir 650 mg/ Sodium (Chloride) 100 mls @ 100 mls/hr IV Q8H [facility] Last Admin: 10/28/16 13:39 Dose: 100 mls/hr Insulin Aspart (Novolog) 0 unit SC TIDAC [facility] PRN Reason: Protocol Last Admin: 10/28/16 07:59 Dose: Not Given Levothyroxine Sodium (Synthroid) 150 mcg PO DAILY@0630 [facility] Last Admin: 10/28/16 06:02 Dose: 150 mcg Lisinopril (Zestril) 2.5 mg PO DAILY [facility] Last Admin: 10/28/16 10:12 Dose: 2.5 mg Metformin HCl (Glucophage) 500 mg PO BID [facility] Last Admin: 10/28/16 10:12 Dose: 500 mg Metoprolol Succinate (Toprol Xl) 25 mg PO BID [facility] Last Admin: 10/28/16 10:12 Dose: 25 mg Tramadol HCl (Ultram) 50 mg PO TID PRN PRN Reason: Pain, moderate (4-7) Last Admin: 10/28/16 10:12 Dose: 50 mg Attending/Attestation - Attestation I have personally seen and examined this patient.: Yes I have fully participated in the care of the patient.: Yes I have reviewed all pertinent clinical information, including history, physical exam and plan: Yes Notes (Text): 10/28/16 15:35 Patient was seen and examined at bedside with the resident Patient is in contact isolation Continue acyclovir for herpes zoster ID is on board Follow up skin biopsy results I discussed the plan of care with the resident and agree with the above history and physical and assessment/plan by the resident.
[2016-10-28] MEDS: Levothyroxine 150 MCG TAB PO SCH (06:02)
[2016-10-28] MEDS: (Novolog) Insulin Aspart, Recombinant 100 u/ml 10 ml vial SC SCH ×2 (07:59→16:41)
--- NOTE | 2016-10-28 08:12 | CON ---
DATE: 10/27/2016 REQUESTING PHYSICIAN: Dr. Pineda This patient is a 61-year-old male. He was admitted with a rash on the right arm, which was from the last week. He also underwent a biopsy. I was asked to see him today. He has reportedly has CLL an d has not had chemo for 18 months, but he is on some medication. He did mention a name. He denies a [place] fever or chills. He does complain of some pain in the right wrist, but has no lesions there. He some lesions on the back, which probably are from the same dermatome, but I also see a few scattered skin lesions, which is surprising as the other lesions look like zoster, but it may be. We will keep him in isolation to rule out any chickenpox. PAST SURGICAL HISTORY: Significant for diabetes, hypertension, high cholesterol, hypothyroidism. He has received platelets in the past. SOCIAL HISTORY: Negative for smoking or drinking or any drug abuse. He denied any fever or chills. Denies any chest pain. Came in with a rash. Has no nausea, no vomit ing and no weakness, no numbness. The resident had already started him on acyclovir, which I agree with it, 650 q. 8 hours, bacitracin, Neurontin, Lopid, NovoLog, levothyroxine, Zestril, metformin, metoprolol and he is on Ultram for the pain and he is on gabapentin, bacitracin and he is on acyclovir. PHYSICAL EXAMINATION: VITAL SIGNS: I find his temperature is 98.3, heart rate of 108, blood pressure 122/78, respirations are 20. GENERAL: He is awake, alert. HEENT: Head is atraumatic, normocephalic. Pupils are reacting to light. Throat, no congestion, no thrush seen. NECK: Supple. JVP is flat. LUNGS: Clear. No crackles or rales present. HEART: S1, S2 is regular. No murmurs appreciated. ABDOMEN: Soft, nontender, no guarding, no rigidity present. EXTREMITIES: Right arm has vesicular lesions, multiple areas of lesions which are together, vesicula r, which is typical of zoster and some areas do show some necrotic and in the right arm and the right posterior back. He also had a few maculopapular lesions on his abdomen, but which are unclear etiol ogy, and in the right axilla, he had a suture where they have done a skin biopsy. LABORATORIES: White count is 8.4, hemoglobin 12.3, hematocrit 37, platelet count is 122. Sodium 130 , potassium 4.3, chloride 92, creatinine is 0.9. IMPRESSION AND PLAN: This patient is immunocompromised and has herpes zoster and is on acyclovir and we will follow and it is painful, it is erythematous and will follow and he does have chronic lympho cytic leukemia and he is on Imbruvica as noted from Dr. Azevedo's note. Evelyne Blunt MD cc: [id number] TT: 10/28/2016 08:12:00 Confirmation # [id number] Dictation # [id number] en
[2016-10-28 08:53] LABS: BASO % 0.6 % (0.0-2.0); EOS % 0.1 % (0.0-4.0); HEMATOCRIT 35.5 % (35.0-51.0); LYMPH # 3.2 K/uL (1.0-4.3); LYMPH % 40.1 % (20.0-40.0); MEAN CELL VOLUME 97.4 fL (80.0-94.0); MEAN CORPUSCULAR HEMOGLOBIN 32.2 pg (27.0-31.0); MEAN CORPUSCULAR HGB CONC 33.1 g/dL (33.0-37.0); MEAN PLATELET VOLUME 9.6 fL (7.2-11.7); MONO # 0.9 K/uL (0.0-0.8); MONO % 10.8 % (0.0-10.0); PLATELET COUNT 114 K/uL (130-400); RED CELL DISTRIBUTION WIDTH 13.6 % (11.5-14.5); WHITE BLOOD COUNT 7.9 K/uL (4.8-10.8)
[2016-10-28 09:07] LABS: CHLORIDE 96 mmol/L (98-107); POTASSIUM 4.1 mmol/L (3.6-5.2); SODIUM 128 mmol/L (132-148)
[2016-10-28 09:09] LABS: GFR AFRICAN-AMERICAN > 60
[2016-10-28 09:10] LABS: ALB/GLOB RATIO 1.5 (1.0-2.1); ALKALINE PHOSPHATASE 66 U/L (38-126); ALT/SGPT 29 U/L (21-72); AST/SGOT 28 U/L (17-59); BILIRUBIN,TOTAL 0.8 mg/dL (0.2-1.3); BLOOD UREA NITROGEN 15 mg/dL (9-20); CALCIUM 8.2 mg/dl (8.6-10.4); CARBON DIOXIDE 21 mmol/L (22-30); GLUCOSE,RANDOM 119 mg/dL (75-110); PHOSPHOROUS 3.4 mg/dL (2.5-4.5); TOTAL PROTEIN 6.3 g/dL (6.3-8.3)
[2016-10-28] MEDS ORDERED: Acyclovir 5% Oint (30 gm) EXT SCH (10:00)
[2016-10-28] MEDS: Metoprolol Succinate 25 mg XL Tab PO SCH ×2 (10:12→17:24)
[2016-10-28] MEDS: Bacitracin Ointment 30 GM TUBE TOP SCH (10:13)
[2016-10-28 10:48] LABS: BASOPHIL 1 % (0-2); NEUTROPHIL 38 % (50-75); TOTAL CELLS COUNTED 100
[2016-10-28 10:50] LABS: GIANT PLATELETS PRESENT; LARGE PLATELETS PRESENT
[2016-10-29] MEDS: Levothyroxine 150 MCG TAB PO SCH (05:31)
[2016-10-29 07:59] LABS: BASO % 0.6 % (0.0-2.0); HEMATOCRIT 35.6 % (35.0-51.0); LYMPH % 42.2 % (20.0-40.0); MEAN CELL VOLUME 96.8 fL (80.0-94.0); MEAN CORPUSCULAR HEMOGLOBIN 32.3 pg (27.0-31.0); MEAN CORPUSCULAR HGB CONC 33.4 g/dL (33.0-37.0); MEAN PLATELET VOLUME 9.6 fL (7.2-11.7); MONO # 0.9 K/uL (0.0-0.8); MONO % 12.3 % (0.0-10.0); NRBC % 0.1 % (0.0-2.0); RED CELL DISTRIBUTION WIDTH 13.7 % (11.5-14.5)
[2016-10-29] MEDS: (Novolog) Insulin Aspart, Recombinant 100 u/ml 10 ml vial SC SCH ×3 (08:14→18:32)
[2016-10-29 08:49] LABS: ALB/GLOB RATIO 1.4 (1.0-2.1); ALKALINE PHOSPHATASE 71 U/L (38-126); ALT/SGPT 34 U/L (21-72); AST/SGOT 34 U/L (17-59); BILIRUBIN,TOTAL 0.6 mg/dL (0.2-1.3); BLOOD UREA NITROGEN 19 mg/dL (9-20); CALCIUM 8.2 mg/dl (8.6-10.4); CARBON DIOXIDE 21 mmol/L (22-30); CHLORIDE 95 mmol/L (98-107); GFR AFRICAN-AMERICAN > 60; GLUCOSE,RANDOM 120 mg/dL (75-110); MAGNESIUM 2.3 mg/dL (1.6-2.3); PHOSPHOROUS 3.2 mg/dL (2.5-4.5); POTASSIUM 4.2 mmol/L (3.6-5.2); SODIUM 127 mmol/L (132-148); TOTAL PROTEIN 6.4 g/dL (6.3-8.3)
--- NOTE | 2016-10-29 10:15 | CP.PCM.PN ---
Addendum entered and electronically signed by Mercedes Corbin DO 10/29/16 14: 54: Ancef 1 gm IV q8h added per ID to cover for possible secondary cellulitis. Patient also receiving Zovirax 5% ointment 1 gm top QID. Original Note: <Mercedes Corbni - Last Filed: 10/29/16 14:52> Subjective - Date & Time of Evaluation Date of Evaluation: 10/29/16 Time of Evaluation: 10:11 - Subjective Subjective: Patient seen and examined at bedside. He appears uncomfortable due to RUE pain. He reports the pain radiates down his right UE upon deep inspiration. Patient states pain is most severe to his right hand where rash is now present (new since Saturday). He denies fever and chills; however according to recorded vitals , patient febrile 101.2F this morning and 100.8F overnight. Patient denies headache or confusion. He also denies chest pain, shortness of breath, palpitations, abdominal pain, nausea, vomiting, lower extremity swelling/pain. Objective - Vital Signs/Intake and Output Vital Signs (last 24 hours): Temp Pulse Resp BP Pulse Ox 101.2 F H 114 H 22 140/76 97 10/29/16 08:22 10/29/16 07:58 10/29/16 07:58 10/29/16 07:58 10/29/16 07:58 - Medications Medications: Current Medications Acetaminophen (Tylenol 325mg Tab) 650 mg PO Q6 PRN PRN Reason: Pain, Mild (1-3), fever Bacitracin (Bacitracin) 0 gm TOP DAILY [facility] Last Admin: 10/28/16 10:13 Dose: 1 applic Gabapentin (Neurontin) 300 mg PO TID [facility] Gemfibrozil (Lopid) 600 mg PO BID [facility] Last Admin: 10/28/16 17:24 Dose: 600 mg Acyclovir 650 mg/ Sodium (Chloride) 100 mls @ 100 mls/hr IV Q8H [facility] Last Admin: 10/29/16 05:31 Dose: 100 mls/hr Insulin Aspart (Novolog) 0 unit SC TIDAC [facility] PRN Reason: Protocol Last Admin: 10/29/16 08:14 Dose: Not Given Levothyroxine Sodium (Synthroid) 150 mcg PO DAILY@0630 [facility] Last Admin: 10/29/16 05:31 Dose: 150 mcg Lisinopril (Zestril) 2.5 mg PO DAILY [facility] Last Admin: 10/28/16 10:12 Dose: 2.5 mg Metformin HCl (Glucophage) 500 mg PO BID [facility] Last Admin: 10/28/16 17:24 Dose: 500 mg Metoprolol Succinate (Toprol Xl) 25 mg PO BID [facility] Last Admin: 10/28/16 17:24 Dose: 25 mg Tramadol HCl (Ultram) 50 mg PO TID PRN PRN Reason: Pain, moderate (4-7) Last Admin: 10/28/16 23:34 Dose: 50 mg - Labs Labs: 10/29/16 07:44 10/29/16 07:44 - Constitutional Appears: Non-toxic, No Acute Distress - Head Exam Head Exam: ATRAUMATIC, NORMAL INSPECTION, NORMOCEPHALIC - Eye Exam Eye Exam: EOMI, Normal appearance, PERRL - ENT Exam ENT Exam: Mucous Membranes Moist, Normal Exam, Normal Oropharynx - Neck Exam Neck Exam: Full ROM, Normal Inspection - Respiratory Exam Respiratory Exam: Clear to Ausculation Bilateral, NORMAL BREATHING PATTERN. absent: Rales, Rhonchi, Wheezes - Cardiovascular Exam Cardiovascular Exam: Tachycardia, +S1, +S2 - GI/Abdominal Exam GI & Abdominal Exam: Soft, Normal Bowel Sounds. absent: Tenderness - Extremities Exam Additional comments: swelling of RUE see skin exam - Neurological Exam Neurological Exam: Alert, Awake, CN II-XII Intact, Oriented x3 - Psychiatric Exam Psychiatric exam: Normal Affect, Normal Mood - Skin Additional comments: Increased number of hemorrhagic grouped tense vesicles affecting right upper extremity particularly to ventral aspect. New vesicles to palmar aspect of right hand which are painful to palpation. Grouped vesicles to right axillary fold which are now hemorrhagic. Grouped tense vesicles to right upper back appear stable. 1mm papules with pustule and surround erythema sparsely distributed to abdomen with a few similarly appearing lesions also present to right upper extremity. Small tense vesicle noted to left upper extremity and left oblique. Nikolsky and Asboe-Roman signs negative. No desquamation or ulcerative lesions noted. Assessment and Plan - Assessment and Plan (Free Text) Assessment: Painful Vesicular/Pustular Rash likely Disseminated Herpes Zoster No leukocytosis , however patient has been febrile, tmax of 101.2 Must also consider Herpes Simplex infection in light of immunocompromised state with history of CLL and on Imbruvica therapy Eczema Herpeticum lower on differential given lack of ulcerative lesions Patient started on Acyclovir 650 mg IV q8h. Will monitor for possible resistance to anti-viral and should be started on foscarnet, vidarabine or cidofovir if resistance noted. Gabapentin increased to 300 mg po TID to control pain. Ultram 50 mg po TID PRN also on for pain management. Will hold Imbruvica , discussed with Dr. Azevedo Infectious disease, Dr. Blunt, consulted and agrees with current management. Punch biopsy sent for direct fluorescent antigen (DFA) and immunohistochemistry (IHC) to confirm zoster Awaiting results of herpes zoster IgM antibody as well as herpes simplex 1/2 pcr and herpes simplex virus culture Porphyria Cutanea Tarda, Pseudoporphyria and Dermatitis Herpetiformis low on differential diagnosis Iron studies show low iron is low which is not suggestive of PCT. Awaiting 24hr porphyrins/porphobilinogen IgA 70.5. Awaiting endomysial scr IgA, tissue transglutaminase AB IGA Punch Biopsy B to have DIF performed. Tylenol 650 mg po q6 PRN for fever Hyponatremia Sodium 127 Consider fluid restriction and nephrology consult Monitor Chronic Lymphocytic Leukemia Polymer Tester/Oncologist, Dr. Azevedo, consulted Imbruvica 140 mg 3 capsules po daily - held Diabetes Mellitus Type II RISS Continue home medication Metformin 500 mg po BID Accuchecks Monitor Hypertension Continue home medications Lisinopril 2.5 mg po daily and Metoprolol 25 mg po BID Monitor Hyperlipidemia Continue home medication Gemfibrozil 600 mg po BID Prophylaxis SCD Heart Healthy Diet Chemical VTE CI due to thrombocytopenia <Joe Dalton H - Last Filed: 10/29/16 15:28> Objective - Vital Signs/Intake and Output Vital Signs (last 24 hours): Temp Pulse Resp BP Pulse Ox 98.2 F 114 H 22 140/76 97 10/29/16 13:39 10/29/16 07:58 10/29/16 07:58 10/29/16 07:58 10/29/16 07:58 Intake and Output: 10/29/16 10/29/16 06:59 18:59 Intake Total 580 Balance 580 - Medications Medications: Current Medications Acetaminophen (Tylenol 325mg Tab) 650 mg PO Q6 PRN PRN Reason: Pain, Mild (1-3), fever Last Admin: 10/29/16 13:39 Dose: 650 mg Acyclovir (Zovirax 5% Ointment) 1 gm EXT QID [facility] Gabapentin (Neurontin) 300 mg PO TID [facility] Last Admin: 10/29/16 13:28 Dose: 300 mg Gemfibrozil (Lopid) 600 mg PO BID [facility] Last Admin: 10/29/16 10:40 Dose: 600 mg Acyclovir 650 mg/ Sodium (Chloride) 100 mls @ 100 mls/hr IV Q8H [facility] Last Admin: 10/29/16 13:28 Dose: 100 mls/hr Cefazolin Sodium/Dextrose (Ancef Iv 1 Gm Duplex) 1 gm in 50 mls @ 100 mls/hr IVPB Q8H [facility] Insulin Aspart (Novolog) 0 unit SC TIDAC [facility] PRN Reason: Protocol Last Admin: 10/29/16 13:29 Dose: 3 unit Levothyroxine Sodium (Synthroid) 150 mcg PO DAILY@0630 [facility] Last Admin: 10/29/16 05:31 Dose: 150 mcg Lisinopril (Zestril) 2.5 mg PO DAILY [facility] Last Admin: 10/29/16 10:39 Dose: 2.5 mg Metformin HCl (Glucophage) 500 mg PO BID [facility] Last Admin: 10/29/16 10:39 Dose: 500 mg Metoprolol Succinate (Toprol Xl) 25 mg PO BID [facility] Last Admin: 10/29/16 10:40 Dose: 25 mg Tramadol HCl (Ultram) 50 mg PO TID PRN PRN Reason: Pain, moderate (4-7) Last Admin: 10/29/16 10:40 Dose: 50 mg - Labs Labs: 10/29/16 07:44 10/29/16 07:44 Attending/Attestation - Attestation I have personally seen and examined this patient.: Yes I have fully participated in the care of the patient.: Yes I have reviewed all pertinent clinical information, including history, physical exam and plan: Yes Notes (Text): 10/29/16 15:21 Medical Attending: Patient was seen and examined by me. Agree with the above note by the resident. Examined the patient's RUE as well as his back and chest. Currently on IV acyclovir TID as well as gabapentin for pain. As mentioned before there is a history of CLL for which he receive chemotherapy for Joe Dalton
[2016-10-29] MEDS: Metoprolol Succinate 25 mg XL Tab PO SCH ×2 (10:40→17:08)
[2016-10-29] MEDS: Bacitracin Ointment 30 GM TUBE TOP SCH (13:30)
[2016-10-29] MEDS ORDERED: ceFAZolin IV 1 gm in Dextrose 1 GM/50 ML BAG IVPB SCH (14:00)
[2016-10-29] MEDS ORDERED: Acyclovir 5% Oint (30 gm) EXT SCH (14:00)
--- NOTE | 2016-10-29 14:11 | PN ---
DATE: 10/29/2016 The patient is still with a rash and extensive herpes zoster. The patient is with multiple vesicular lesions in aggregation and he has some developed on his wrist and there are some lesions on his back and he is still running fever. He is on acyclovir and he is also getting the cream. He has no head ache, no confusion. He is awake, alert. He is immunosuppressed because he has been on chemotherapy. He denies any chest pain. No shortness of breath, no palpitations, no other complaints as such. PHYSICAL EXAMINATION: VITAL SIGNS: T-max is 101.2, now 98, blood pressure 140/76, respirations are 22. HEENT: Unremarkable. NECK: Supple. LUNGS: Clear. HEART: S1, S2 is regular. ABDOMEN: Soft. EXTREMITIES: Have no edema, clubbing, or cyanosis. Right arm remains with these lesions. His IgA was done, which is normal and his creatinine is 0.9 today. Sodium remains a little low 127, so maybe it needs to be monitored and he is on acyclovir 650 IV q. 8 hours and will order Zovirax cre am instead of the bacitracin and that may help him with the pain and also add Ancef at this time to c over for some secondary cellulitis and will follow. Evelyne Blunt MD cc: [id number] TT: 10/29/2016 14:11:31 Confirmation # [id number] Dictation # [id number]
--- NOTE | 2016-10-29 14:28 | CARD ---
APPROVED REPORT EKG Measurement Heart [id number] <Conclusion> Normal sinus rhythm Incomplete right bundle branch block Borderline ECG
[2016-10-29] MEDS: ceFAZolin IV 1 gm in Dextrose 1 GM/50 ML BAG IVPB SCH ×2 (15:41→22:58)
[2016-10-30] MEDS: Levothyroxine 150 MCG TAB PO SCH (06:03)
[2016-10-30] MEDS: (Novolog) Insulin Aspart, Recombinant 100 u/ml 10 ml vial SC SCH ×3 (08:09→17:31)
[2016-10-30] MEDS: ceFAZolin IV 1 gm in Dextrose 1 GM/50 ML BAG IVPB SCH (08:18)
[2016-10-30 08:41] LABS: BASO % 0.7 % (0.0-2.0); HEMATOCRIT 33.9 % (35.0-51.0); LYMPH % 43.3 % (20.0-40.0); MEAN CELL VOLUME 96.8 fL (80.0-94.0); MEAN CORPUSCULAR HEMOGLOBIN 32.4 pg (27.0-31.0); MEAN CORPUSCULAR HGB CONC 33.5 g/dL (33.0-37.0); MEAN PLATELET VOLUME 9.5 fL (7.2-11.7); MONO # 0.8 K/uL (0.0-0.8); MONO % 11.8 % (0.0-10.0); NRBC % 0.1 % (0.0-2.0); PLATELET COUNT 107 K/uL (130-400); RED CELL DISTRIBUTION WIDTH 13.8 % (11.5-14.5)
[2016-10-30 09:02] LABS: CHLORIDE 92 mmol/L (98-107); POTASSIUM 4.1 mmol/L (3.6-5.2); SODIUM 125 mmol/L (132-148)
[2016-10-30 09:04] LABS: ALB/GLOB RATIO 1.4 (1.0-2.1); ALKALINE PHOSPHATASE 60 U/L (38-126); ALT/SGPT 39 U/L (21-72); AST/SGOT 40 U/L (17-59); BILIRUBIN,TOTAL 0.6 mg/dL (0.2-1.3); BLOOD UREA NITROGEN 18 mg/dL (9-20); CARBON DIOXIDE 22 mmol/L (22-30); GFR AFRICAN-AMERICAN > 60; TOTAL PROTEIN 6.5 g/dL (6.3-8.3)
[2016-10-30 09:05] LABS: CALCIUM 8.1 mg/dl (8.6-10.4); GLUCOSE,RANDOM 118 mg/dL (75-110); MAGNESIUM 2.3 mg/dL (1.6-2.3); PHOSPHOROUS 4.1 mg/dL (2.5-4.5)
--- NOTE | 2016-10-30 10:21 | CP.PCM.PN ---
<MitchMercedes rangel - Last Filed: 10/30/16 11:28> Subjective - Date & Time of Evaluation Date of Evaluation: 10/30/16 Time of Evaluation: 10:17 - Subjective Subjective: Patient seen and examined at bedside. Patient continues to have pain to right upper extremity due to vesicular rash. He states he does not want pain medications to be increased. Patient notes waking up this morning diaphoretic and admits to headache. Of note, he developed fever of 103F overnight. Patient denies confusion/disorientation. He feels his rash is stable. Patient reports irritation to right nasal ala. He is tolerating po diet well and denies nausea, vomiting, diarrhea, constipation and dysuria. Patient also denies chest pain, shortness of breath, and cough. Objective - Vital Signs/Intake and Output Vital Signs (last 24 hours): Temp Pulse Resp BP Pulse Ox 100.3 F H 113 H 19 123/77 97 10/30/16 03:46 10/29/16 23:22 10/29/16 23:22 10/29/16 23:22 10/29/16 23:22 Intake and Output: 10/30/16 10/30/16 06:59 18:59 Intake Total 570 Balance 570 - Medications Medications: Current Medications Acetaminophen (Tylenol 325mg Tab) 650 mg PO Q6 PRN PRN Reason: Pain, Mild (1-3), fever Last Admin: 10/30/16 03:46 Dose: 650 mg Gabapentin (Neurontin) 300 mg PO TID [facility] Last Admin: 10/29/16 17:07 Dose: 300 mg Gemfibrozil (Lopid) 600 mg PO BID [facility] Last Admin: 10/29/16 17:08 Dose: 600 mg Acyclovir 650 mg/ Sodium (Chloride) 100 mls @ 100 mls/hr IV Q8H [facility] Last Admin: 10/30/16 06:00 Dose: 100 mls/hr Cefazolin Sodium/Dextrose (Ancef Iv 1 Gm Duplex) 1 gm in 50 mls @ 100 mls/hr IVPB Q8H [facility] Last Admin: 10/30/16 08:18 Dose: 100 mls/hr Sodium Chloride (Sodium Chloride 0.9%) 1,000 mls @ 70 mls/hr IV .[id number] [facility] Insulin Aspart (Novolog) 0 unit SC TIDAC [facility] PRN Reason: Protocol Last Admin: 10/30/16 08:09 Dose: Not Given Levothyroxine Sodium (Synthroid) 150 mcg PO DAILY@0630 [facility] Last Admin: 10/30/16 06:03 Dose: 150 mcg Lisinopril (Zestril) 2.5 mg PO DAILY [facility] Last Admin: 10/29/16 10:39 Dose: 2.5 mg Metformin HCl (Glucophage) 500 mg PO BID [facility] Last Admin: 10/29/16 17:08 Dose: 500 mg Metoprolol Succinate (Toprol Xl) 25 mg PO BID [facility] Last Admin: 10/29/16 17:08 Dose: 25 mg Mupirocin (Bactroban Ointment) 0 gm TOP BID [facility] Last Admin: 10/29/16 20:57 Dose: 1 applic Tramadol HCl (Ultram) 50 mg PO TID PRN PRN Reason: Pain, moderate (4-7) Last Admin: 10/29/16 17:07 Dose: 50 mg - Labs Labs: 10/30/16 08:29 10/30/16 08:29 - Head Exam Head Exam: ATRAUMATIC, NORMAL INSPECTION, NORMOCEPHALIC - Eye Exam Eye Exam: EOMI, Normal appearance, PERRL - ENT Exam ENT Exam: Mucous Membranes Moist - Neck Exam Neck Exam: Full ROM - Respiratory Exam Respiratory Exam: Clear to Ausculation Bilateral, NORMAL BREATHING PATTERN. absent: Rales, Rhonchi, Wheezes - Cardiovascular Exam Cardiovascular Exam: +S1, +S2. absent: Bradycardia, Tachycardia - GI/Abdominal Exam GI & Abdominal Exam: Soft, Normal Bowel Sounds. absent: Firm, Guarding - Extremities Exam Additional comments: see skin exam. Mild edema to right upper extremity. - Neurological Exam Neurological Exam: Alert, Awake, CN II-XII Intact, Oriented x3 - Psychiatric Exam Psychiatric exam: Normal Affect, Normal Mood - Skin Additional comments: Increased number of hemorrhagic grouped tense vesicles affecting right upper extremity particularly to ventral aspect. Stable vesicles to palmar aspect of right hand which are painful to palpation. Grouped vesicles to right axillary fold which continue to be hemorrhagic. Grouped resolving vesicles to right upper back. 1mm papules with pustule and surround erythema sparsely distributed to abdomen with a few similarly appearing lesions also present to right upper extremity. Small tense vesicle with surrounding erythema noted to left upper extremity and left oblique. Nikolsky and Asboe-Roman signs negative. No desquamation or ulcerative lesions noted. Mild erythema to right nasal ala. Assessment and Plan - Assessment and Plan (Free Text) Assessment: Painful Vesicular/Pustular Rash likely Disseminated Herpes Zoster No leukocytosis , however patient continued to be febrile, tmax of 103.0 over 24hr Must also consider Herpes Simplex infection in light of immunocompromised state with history of CLL and on Imbruvica therapy Eczema Herpeticum lower on differential given lack of ulcerative lesions Continue Acyclovir 650 mg IV q8h. Will monitor for possible resistance to anti- viral and should be started on foscarnet, vidarabine or cidofovir if resistance noted. If patient continues to develop fever, may consider switching therapy to foscarnet. Ancef 1 gm IV q8h added per ID to cover for possible secondary cellulitis. Continue Gabapentin 300 mg po TID to control pain. Ultram 50 mg po TID PRN also on for pain management. Will hold Imbruvica , discussed with Dr. Azevedo Infectious disease, Dr. Blunt, consulted and agrees with current management. Punch biopsy sent for direct fluorescent antigen (DFA) and immunohistochemistry (IHC) to confirm zoster Awaiting results of herpes zoster IgM antibody as well as herpes simplex 1/2 pcr and herpes simplex virus culture Porphyria Cutanea Tarda, Pseudoporphyria and Dermatitis Herpetiformis low on differential diagnosis Iron studies show low iron is low which is not suggestive of PCT. Awaiting 24hr porphyrins/porphobilinogen IgA 70.5. Awaiting endomysial scr IgA, tissue transglutaminase AB IGA Punch Biopsy B to have DIF performed. Tylenol 650 mg po q6 PRN for fever Pyrexia sepsis work up repeat blood cx x2, urinalysis, urine cx, cxr ordered procalcitonin and lactic acid ordered will follow-up to ensure no other concomitant source of infection Hyponatremia Worsening Sodium 125 from 127 Started on Normal Saline IV @ 70cc/hr Urine sodium random, urine osmolality, serum osmolality, urine uric acid ordered Lisinopril- held Nephrology, Dr. Magallanes, consulted. Help appreciated. Dr. De Santiago evaluated patient and agrees with sepsis work-up and fluids. Will recheck sodium this afternoon. Monitor Chronic Lymphocytic Leukemia Balance Bridge Inspector/Oncologist, Dr. [place], consulted Imbruvica 140 mg 3 capsules po daily - held Diabetes Mellitus Type II RISS Continue home medication Metformin 500 mg po BID Accuchecks Monitor Hypertension Hold home medications Lisinopril 2.5 mg po daily due to hyponatremia Continue Metoprolol 25 mg po BID Monitor Hyperlipidemia Continue home medication Gemfibrozil 600 mg po BID Prophylaxis SCD Heart Healthy Diet Chemical VTE CI due to thrombocytopenia <Joe Dalton H - Last Filed: 10/30/16 16:04> Objective - Vital Signs/Intake and Output Vital Signs (last 24 hours): Temp Pulse Resp BP Pulse Ox 98.9 F 102 H 19 115/74 95 10/30/16 08:00 10/30/16 08:00 10/30/16 08:00 10/30/16 08:00 10/30/16 08:00 Intake and Output: 10/30/16 10/30/16 06:59 18:59 Intake Total 570 580 Output Total 3 Balance 570 577 - Medications Medications: Current Medications Acetaminophen (Tylenol 325mg Tab) 650 mg PO Q6 PRN PRN Reason: Pain, Mild (1-3), fever Last Admin: 10/30/16 03:46 Dose: 650 mg Gabapentin (Neurontin) 300 mg PO TID [facility] Last Admin: 10/30/16 13:30 Dose: 300 mg Gemfibrozil (Lopid) 600 mg PO BID [facility] Last Admin: 10/30/16 10:42 Dose: 600 mg Acyclovir 650 mg/ Sodium (Chloride) 100 mls @ 100 mls/hr IV Q8H [facility] Last Admin: 10/30/16 13:29 Dose: 100 mls/hr Sodium Chloride (Sodium Chloride 0.9%) 1,000 mls @ 70 mls/hr IV .[id number] [facility] Last Admin: 10/30/16 10:43 Dose: 70 mls/hr Cefepime HCl 2 gm/ Sodium (Chloride) 100 mls @ 100 mls/hr IVPB Q8H [facility] Last Admin: 10/30/16 15:49 Dose: 100 mls/hr Insulin Aspart (Novolog) 0 unit SC TIDAC [facility] PRN Reason: Protocol Last Admin: 10/30/16 13:30 Dose: 3 unit Levothyroxine Sodium (Synthroid) 150 mcg PO DAILY@0630 [facility] Last Admin: 10/30/16 06:03 Dose: 150 mcg Metformin HCl (Glucophage) 500 mg PO BID [facility] Last Admin: 10/30/16 10:41 Dose: 500 mg Metoprolol Succinate (Toprol Xl) 25 mg PO BID [facility] Last Admin: 10/30/16 10:41 Dose: 25 mg Mupirocin (Bactroban Ointment) 0 gm TOP BID [facility] Last Admin: 10/30/16 10:42 Dose: 1 applic Tramadol HCl (Ultram) 50 mg PO TID PRN PRN Reason: Pain, moderate (4-7) Last Admin: 10/29/16 17:07 Dose: 50 mg - Labs Labs: 10/30/16 08:29 10/30/16 13:56 Attending/Attestation - Attestation I have personally seen and examined this patient.: Yes I have fully participated in the care of the patient.: Yes I have reviewed all pertinent clinical information, including history, physical exam and plan: Yes Notes (Text): 10/30/16 15:58 Medical Attending: Patient was seen and examined by me. Patient still reporting a lot of pain along the lesions on the skin on his hands and arms. He remains on Acyclovir at this time Later I was informed that there was bandemia on blood work today. Considering he still has fevers may have to change the IV abx In the mean time will continue to follow and monitor patient Joe Dalton
[2016-10-30] MEDS: Metoprolol Succinate 25 mg XL Tab PO SCH ×2 (10:41→18:21)
[2016-10-30] MEDS: Sodium Chloride 0.9% 1,000 ML IV SCH (10:43)
--- NOTE | 2016-10-30 11:01 | CP.PCM.CON ---
History of Present Illness - History of Present Illness History of Present Illness: consult for hyponatremia 61 yo male w/ hcx of CLL, on imbruvica, hx of htn on lisinopril - presented for evaluation of painful vesicular rash last week. Evaluated and biopsied - pending report, pt on acyclovir for possible herpes zoster. Pt has severe pain in the area of rash. Says, rash is finally drying up and not spreading anymore. Na levels, normal on admission, dropping consistently, 125 meq/dl this am. Started on iv normal saline today. Alos, pt tachycardic, febrile since last night. Feels thirsty and drinking water to "protect his kidneys" denies any prior hx of hyponatremia Past medical history: HTN, CLL Past surgical history: None Family history: Denies hematologic and oncologic problems Social history: Denies tobacco, alcohol, and illicit drug use. Allergies: NKDA ROS: No n/d/v/sob/cp/dizziness/headache/cough. rest as above Review of Systems - Review of Systems All systems: reviewed and no additional remarkable complaints except (per hpi) Past Patient History - Past Medical History & Family History Past Medical History?: Yes - Past Social History Smoking Status: Never Smoked - CARDIAC Hx Hypercholesterolemia: Yes Hx Hypertension: Yes - PULMONARY Hx Respiratory Disorders: No - NEUROLOGICAL Hx Neurological Disorder: No - HEENT Hx HEENT Problems: No - RENAL Hx Chronic Kidney Disease: No - ENDOCRINE/METABOLIC Hx Hypothyroidism: Yes - HEMATOLOGICAL/ONCOLOGICAL Hx Leukemia: Yes (CLL) - INTEGUMENTARY Hx Dermatological Problems: No - MUSCULOSKELETAL/RHEUMATOLOGICAL Hx Musculoskeletal Disorders: No Hx Falls: No - GASTROINTESTINAL Hx Gastrointestinal Disorders: Yes Hx Hemorrhoids: Yes - GENITOURINARY/GYNECOLOGICAL Hx Genitourinary Disorders: No - PSYCHIATRIC Hx Substance Use: No - SURGICAL HISTORY Hx Surgeries: Yes Hx Vascular Access Device: Yes (RIGHT STEVEN CATH) - ANESTHESIA Hx Anesthesia: Yes Hx Anesthesia Reactions: No Meds Allergies/Adverse Reactions: Allergies Allergy/AdvReac Type Severity Reaction Status Date / Time rituximab Allergy Severe SHORTNESS Verified 10/26/16 12:18 OF BREATH peanut Allergy Mild ITCHING Verified 10/26/16 12:18 - Medications Medications: Current Medications Acetaminophen (Tylenol 325mg Tab) 650 mg PO Q6 PRN PRN Reason: Pain, Mild (1-3), fever Last Admin: 10/30/16 03:46 Dose: 650 mg Gabapentin (Neurontin) 300 mg PO TID [facility] Last Admin: 10/30/16 10:41 Dose: 300 mg Gemfibrozil (Lopid) 600 mg PO BID [facility] Last Admin: 10/30/16 10:42 Dose: 600 mg Acyclovir 650 mg/ Sodium (Chloride) 100 mls @ 100 mls/hr IV Q8H [facility] Last Admin: 10/30/16 06:00 Dose: 100 mls/hr Cefazolin Sodium/Dextrose (Ancef Iv 1 Gm Duplex) 1 gm in 50 mls @ 100 mls/hr IVPB Q8H [facility] Last Admin: 10/30/16 08:18 Dose: 100 mls/hr Sodium Chloride (Sodium Chloride 0.9%) 1,000 mls @ 70 mls/hr IV .[id number] [facility] Last Admin: 10/30/16 10:43 Dose: 70 mls/hr Insulin Aspart (Novolog) 0 unit SC TIDAC [facility] PRN Reason: Protocol Last Admin: 10/30/16 08:09 Dose: Not Given Levothyroxine Sodium (Synthroid) 150 mcg PO DAILY@0630 [facility] Last Admin: 10/30/16 06:03 Dose: 150 mcg Lisinopril (Zestril) 2.5 mg PO DAILY [facility] Last Admin: 10/30/16 10:42 Dose: 2.5 mg Metformin HCl (Glucophage) 500 mg PO BID [facility] Last Admin: 10/30/16 10:41 Dose: 500 mg Metoprolol Succinate (Toprol Xl) 25 mg PO BID [facility] Last Admin: 10/30/16 10:41 Dose: 25 mg Mupirocin (Bactroban Ointment) 0 gm TOP BID [facility] Last Admin: 10/30/16 10:42 Dose: 1 applic Tramadol HCl (Ultram) 50 mg PO TID PRN PRN Reason: Pain, moderate (4-7) Last Admin: 10/29/16 17:07 Dose: 50 mg Physical Exam - Constitutional Appears: Non-toxic, No Acute Distress - Head Exam Head Exam: NORMAL INSPECTION - Eye Exam Eye Exam: Normal appearance Pupil Exam: NORMAL ACCOMODATION - ENT Exam ENT Exam: Mucous Membranes Dry - Neck Exam Neck exam: Positive for: Normal Inspection - Respiratory Exam Respiratory Exam: Clear to Auscultation Bilateral, NORMAL BREATHING PATTERN - Cardiovascular Exam Cardiovascular Exam: REGULAR RHYTHM, RRR - GI/Abdominal Exam GI & Abdominal Exam: Normal Bowel Sounds, Soft - Skin Additional comments: rt arm w/ vesiculopapular dark red rash Results - Vital Signs Recent Vital Signs: Last Vital Signs Temp 98.9 F 10/30/16 08:00 Pulse 102 H 10/30/16 08:00 Resp 19 10/30/16 08:00 BP 115/74 10/30/16 08:00 Pulse Ox 95 10/30/16 08:00 - Labs Result Diagrams: 10/30/16 08:29 10/30/16 08:29 Labs: Laboratory Results - last 24 hr 10/29/16 10/29/16 10/29/16 12:24 18:24 21:40 WBC RBC Hgb Hct MCV MCH MCHC RDW Plt Count MPV Neut % (Auto) Lymph % (Auto) [place] % (Auto) Eos % (Auto) Baso % (Auto) Neut # Lymph # [place] # Eos # Baso # Sodium Potassium Chloride Carbon Dioxide Anion Gap BUN Creatinine Est GFR ( Amer) Est GFR (Non-Af Amer) POC Glucose (mg/dL) 206 H 84 108 Random Glucose Calcium Phosphorus Magnesium Total Bilirubin AST ALT Alkaline Phosphatase Total Protein Albumin Globulin Albumin/Globulin Ratio 10/30/16 10/30/16 10/30/16 07:58 08:29 08:29 WBC 7.0 RBC 3.51 L Hgb 11.4 L Hct 33.9 L MCV 96.8 H MCH 32.4 H MCHC 33.5 RDW 13.8 Plt Count 107 L MPV 9.5 Neut % (Auto) 44.2 L Lymph % (Auto) 43.3 H [place] % (Auto) 11.8 H Eos % (Auto) 0.0 Baso % (Auto) 0.7 Neut # 3.1 Lymph # 3.0 [place] # 0.8 Eos # 0.0 Baso # 0.0 Sodium 125 L Potassium 4.1 Chloride 92 L Carbon Dioxide 22 Anion Gap 15 BUN 18 Creatinine 0.8 Est GFR ( Amer) > 60 Est GFR (Non-Af Amer) > 60 POC Glucose (mg/dL) 124 H Random Glucose 118 H Calcium 8.1 L Phosphorus 4.1 Magnesium 2.3 Total Bilirubin 0.6 AST 40 ALT 39 Alkaline Phosphatase 60 Total Protein 6.5 Albumin 3.8 Globulin 2.7 Albumin/Globulin Ratio 1.4 Assessment & Plan (1) Febrile Status: Acute (2) Anemia Status: Acute (3) CLL (chronic lymphocytic leukemia) Status: Acute (4) Skin lesion Status: Acute (5) Thrombocytopenia Status: Acute (6) Hyponatremia Status: Acute - Assessment and Plan (Free Text) Assessment: - ?siadh vs volume depletion - agree w/ iv fluids, r/o sepsis. Blood cultures and urine cultures. hold lisinopril -check urine osm/na. uric acid. repeat na this afternoon. - po fluid restriction
--- NOTE | 2016-10-30 11:30 | RAD ---
HISTORY: fever COMPARISON: Comparison made with prior study 10/26/2016 FINDINGS: LUNGS: There appears be some minor bibasilar atelectasis. PLEURA: Questionable minor pleural thickening left CP angle. Probable mild right apical pleural thickening. No apparent pneumothorax CARDIOVASCULAR: Heart size within range of normal. OSSEOUS STRUCTURES: No significant abnormalities. VISUALIZED UPPER ABDOMEN: Normal. OTHER FINDINGS: Stable appearing right IJ MediPort tip in the SVC. IMPRESSION: There appears be some minor bibasilar atelectasis
[2016-10-30 12:00] LABS: BASOPHIL 1 % (0-2); METAMYELOCYTE 2 % (0-0); MYELOCYTE 5 % (0-0); NEUTROPHIL 26 % (50-75); REACTIVE LYMPHOCYTES 2 % (0-0); TOTAL CELLS COUNTED 100
[2016-10-30 12:49] LABS: HSV 2 DNA Not Detected (Not Detected); SPECIMEN SOURCE Serum
[2016-10-30 14:28] LABS: CHLORIDE 93 mmol/L (98-107); POTASSIUM 4.1 mmol/L (3.6-5.2); SODIUM 129 mmol/L (132-148)
[2016-10-30 14:31] LABS: GFR AFRICAN-AMERICAN > 60
[2016-10-30 14:32] LABS: BLOOD UREA NITROGEN 18 mg/dL (9-20); CALCIUM 8.3 mg/dl (8.6-10.4); CARBON DIOXIDE 23 mmol/L (22-30); GLUCOSE,RANDOM 161 mg/dL (75-110)
--- NOTE | 2016-10-30 15:14 | CP.PCM.PN ---
Subjective - Date & Time of Evaluation Date of Evaluation: 10/30/16 Time of Evaluation: 03:00 - Subjective Subjective: dictated Objective - Vital Signs/Intake and Output Vital Signs (last 24 hours): Temp Pulse Resp BP Pulse Ox 98.9 F 102 H 19 115/74 95 10/30/16 08:00 10/30/16 08:00 10/30/16 08:00 10/30/16 08:00 10/30/16 08:00 Intake and Output: 10/30/16 10/30/16 06:59 18:59 Intake Total 570 Balance 570 - Medications Medications: Current Medications Acetaminophen (Tylenol 325mg Tab) 650 mg PO Q6 PRN PRN Reason: Pain, Mild (1-3), fever Last Admin: 10/30/16 03:46 Dose: 650 mg Gabapentin (Neurontin) 300 mg PO TID [facility] Last Admin: 10/30/16 13:30 Dose: 300 mg Gemfibrozil (Lopid) 600 mg PO BID [facility] Last Admin: 10/30/16 10:42 Dose: 600 mg Acyclovir 650 mg/ Sodium (Chloride) 100 mls @ 100 mls/hr IV Q8H [facility] Last Admin: 10/30/16 13:29 Dose: 100 mls/hr Cefazolin Sodium/Dextrose (Ancef Iv 1 Gm Duplex) 1 gm in 50 mls @ 100 mls/hr IVPB Q8H [facility] Last Admin: 10/30/16 08:18 Dose: 100 mls/hr Sodium Chloride (Sodium Chloride 0.9%) 1,000 mls @ 70 mls/hr IV .[id number] [facility] Last Admin: 10/30/16 10:43 Dose: 70 mls/hr Cefepime HCl 2 gm/ Sodium (Chloride) 50 mls @ 100 mls/hr IVPB Q8H [facility] Insulin Aspart (Novolog) 0 unit SC TIDAC [facility] PRN Reason: Protocol Last Admin: 10/30/16 13:30 Dose: 3 unit Levothyroxine Sodium (Synthroid) 150 mcg PO DAILY@0630 [facility] Last Admin: 10/30/16 06:03 Dose: 150 mcg Metformin HCl (Glucophage) 500 mg PO BID [facility] Last Admin: 10/30/16 10:41 Dose: 500 mg Metoprolol Succinate (Toprol Xl) 25 mg PO BID [facility] Last Admin: 10/30/16 10:41 Dose: 25 mg Mupirocin (Bactroban Ointment) 0 gm TOP BID [facility] Last Admin: 10/30/16 10:42 Dose: 1 applic Tramadol HCl (Ultram) 50 mg PO TID PRN PRN Reason: Pain, moderate (4-7) Last Admin: 10/29/16 17:07 Dose: 50 mg - Labs Labs: 10/30/16 08:29 10/30/16 13:56
--- NOTE | 2016-10-30 15:48 | CP.PCM.PN ---
Subjective - Date & Time of Evaluation Date of Evaluation: 10/30/16 Time of Evaluation: 15:20 - Subjective Subjective: Feels rash not progressing Objective - Vital Signs/Intake and Output Vital Signs (last 24 hours): Temp Pulse Resp BP Pulse Ox 98.9 F 102 H 19 115/74 95 10/30/16 08:00 10/30/16 08:00 10/30/16 08:00 10/30/16 08:00 10/30/16 08:00 Intake and Output: 10/30/16 10/30/16 06:59 18:59 Intake Total 570 480 Output Total 3 Balance 570 477 - Medications Medications: Current Medications Acetaminophen (Tylenol 325mg Tab) 650 mg PO Q6 PRN PRN Reason: Pain, Mild (1-3), fever Last Admin: 10/30/16 03:46 Dose: 650 mg Gabapentin (Neurontin) 300 mg PO TID [facility] Last Admin: 10/30/16 13:30 Dose: 300 mg Gemfibrozil (Lopid) 600 mg PO BID [facility] Last Admin: 10/30/16 10:42 Dose: 600 mg Acyclovir 650 mg/ Sodium (Chloride) 100 mls @ 100 mls/hr IV Q8H [facility] Last Admin: 10/30/16 13:29 Dose: 100 mls/hr Sodium Chloride (Sodium Chloride 0.9%) 1,000 mls @ 70 mls/hr IV .[id number] [facility] Last Admin: 10/30/16 10:43 Dose: 70 mls/hr Cefepime HCl 2 gm/ Sodium (Chloride) 100 mls @ 100 mls/hr IVPB Q8H [facility] Insulin Aspart (Novolog) 0 unit SC TIDAC [facility] PRN Reason: Protocol Last Admin: 10/30/16 13:30 Dose: 3 unit Levothyroxine Sodium (Synthroid) 150 mcg PO DAILY@0630 [facility] Last Admin: 10/30/16 06:03 Dose: 150 mcg Metformin HCl (Glucophage) 500 mg PO BID [facility] Last Admin: 10/30/16 10:41 Dose: 500 mg Metoprolol Succinate (Toprol Xl) 25 mg PO BID [facility] Last Admin: 10/30/16 10:41 Dose: 25 mg Mupirocin (Bactroban Ointment) 0 gm TOP BID [facility] Last Admin: 10/30/16 10:42 Dose: 1 applic Tramadol HCl (Ultram) 50 mg PO TID PRN PRN Reason: Pain, moderate (4-7) Last Admin: 10/29/16 17:07 Dose: 50 mg - Labs Labs: 10/30/16 08:29 10/30/16 13:56 - Head Exam Head Exam: ATRAUMATIC - Eye Exam Eye Exam: Normal appearance - ENT Exam ENT Exam: Mucous Membranes Dry - Respiratory Exam Respiratory Exam: NORMAL BREATHING PATTERN - Cardiovascular Exam Cardiovascular Exam: +S1, +S2 - GI/Abdominal Exam GI & Abdominal Exam: Normal Bowel Sounds Assessment and Plan (1) Anemia Assessment & Plan: chronic disease, CLL, imbruvica Status: Acute (2) Thrombocytopenia Assessment & Plan: mild likely exacerbated by acute illness and meds element from CLL and Imbruvica Status: Acute (3) CLL (chronic lymphocytic leukemia) Assessment & Plan: in remission on Imbruvica; okay to hold until acute illness resolved Status: Acute
[2016-10-30] MEDS: Cefepime 2 GM in Sodium Chloride 0.9% 100 ML IVPB SCH ×2 (15:49→23:41)
--- NOTE | 2016-10-30 15:58 | PN ---
DATE: 10/30/2016 This patient had 103 ____fever last night, now is 100.3 and 98.9. The patient offers no new complai nts. He did have some headache last night. He is on cefazolin and he is on metformin and he is on a cyclovir 650 q. 12 hours. He denies any urinary complaints. No chest pain, no shortness of breath, no abdominal pain. PHYSICAL EXAMINATION: GENERAL: I find he is ____ his arm and it has extensive vesicular lesions, but they are drying up. There is no drainage HEENT: Head is atraumatic, normocephalic. NECK: Supple. LUNGS: Clear. HEART: S1, S2 is regular. ABDOMEN: Soft, nontender. EXTREMITIES: Other extremities have no edema, but he does papular lesions which are appearing on the back. They are not exudative and remind me of zoster, but real zosters, but the other antiviral ___ _. . So at this time, he continues to have fever. So at this time, I will continue with ____ and just cover for secondary cellulitis and I will also ____ for other viral etiology for the other rash that he is having as to me, it looks like he is responding to acyclovir ____ and there is no ____. Evelyne Blunt MD cc: [id number] TT: 10/30/2016 15:57:06 Confirmation # [id number] Dictation # [id number] tn
[2016-10-30 17:13] LABS: VARICELLA-ZOSTER AB (IGM) <=0.90 (<=0.90)
[2016-10-30 20:59] LABS: CHLORIDE 96 mmol/L (98-107)
[2016-10-30 21:00] LABS: POTASSIUM 4.1 mmol/L (3.6-5.2); SODIUM 124 mmol/L (132-148)
[2016-10-30 21:02] LABS: GFR AFRICAN-AMERICAN > 60
[2016-10-30 21:03] LABS: BLOOD UREA NITROGEN 20 mg/dL (9-20); CALCIUM 7.8 mg/dl (8.6-10.4); CARBON DIOXIDE 21 mmol/L (22-30); GLUCOSE,RANDOM 102 mg/dL (75-110)
[2016-10-30 22:58] LABS: ENDOMYSIAL SCR (IGA)W/RFL Negative (Negative)
[2016-10-31] MEDS: Sodium Chloride 0.9% 1,000 ML IV SCH ×2 (00:33→15:06)
[2016-10-31 06:56] LABS: CHLORIDE 97 mmol/L (98-107); SODIUM 129 mmol/L (132-148)
[2016-10-31 06:57] LABS: POTASSIUM 4.1 mmol/L (3.6-5.2)
[2016-10-31 06:58] LABS: GFR AFRICAN-AMERICAN > 60
[2016-10-31] MEDS: Levothyroxine 150 MCG TAB PO SCH (06:58)
[2016-10-31 06:59] LABS: ALB/GLOB RATIO 1.3 (1.0-2.1); ALKALINE PHOSPHATASE 60 U/L (38-126); ALT/SGPT 37 U/L (21-72); AST/SGOT 41 U/L (17-59); BILIRUBIN,TOTAL 0.6 mg/dL (0.2-1.3); BLOOD UREA NITROGEN 20 mg/dL (9-20); CALCIUM 7.7 mg/dl (8.6-10.4); CARBON DIOXIDE 22 mmol/L (22-30); GLUCOSE,RANDOM 101 mg/dL (75-110); PHOSPHOROUS 3.2 mg/dL (2.5-4.5); TOTAL PROTEIN 5.9 g/dL (6.3-8.3)
[2016-10-31 07:00] LABS: MAGNESIUM 2.5 mg/dL (1.6-2.3)
[2016-10-31 07:03] LABS: BASO % 0.6 % (0.0-2.0); EOS % 0.1 % (0.0-4.0); HEMATOCRIT 30.9 % (35.0-51.0); LYMPH # 2.9 K/uL (1.0-4.3); LYMPH % 51.8 % (20.0-40.0); MEAN CELL VOLUME 96.5 fL (80.0-94.0); MEAN CORPUSCULAR HEMOGLOBIN 32.4 pg (27.0-31.0); MEAN CORPUSCULAR HGB CONC 33.5 g/dL (33.0-37.0); MEAN PLATELET VOLUME 9.1 fL (7.2-11.7); MONO # 0.6 K/uL (0.0-0.8); MONO % 11.5 % (0.0-10.0); NRBC % 0.1 % (0.0-2.0); RED CELL DISTRIBUTION WIDTH 13.8 % (11.5-14.5); WHITE BLOOD COUNT 5.6 K/uL (4.8-10.8)
--- NOTE | 2016-10-31 09:31 | CP.PCM.PN ---
<Mercedes Corbin - Last Filed: 10/31/16 12:51> Subjective - Date & Time of Evaluation Date of Evaluation: 10/31/16 Time of Evaluation: 09:15 - Subjective Subjective: Pt seen and examined at bedside. Patient reports pain is stable and controlled with pain medications. However, he is unable to fully close his hands due to lesions present and pain. The pain is worse on contact of lesions. He admits to having fever overnight but denies being febrile this morning. He also denies headache. Patient unable to tell if skin lesions have gotten worse. He states he feels he has lesions within his nose but remarks they are not painful and the mupirocin ointment prescribed is alleviating. Patient is tolerating diet well and having normal bowel movements. He denies chest pain, palpitations and shortness of breath. Objective - Vital Signs/Intake and Output Vital Signs (last 24 hours): Temp Pulse Resp BP Pulse Ox 99.2 F 100 H 20 117/76 99 10/30/16 23:46 10/30/16 23:46 10/30/16 23:46 10/30/16 23:46 10/30/16 23:46 Intake and Output: 10/31/16 10/31/16 06:59 18:59 Intake Total 1337 Balance 1337 - Medications Medications: Current Medications Acetaminophen (Tylenol 325mg Tab) 650 mg PO Q6 PRN PRN Reason: Pain, Mild (1-3), fever Last Admin: 10/30/16 16:27 Dose: 650 mg Gabapentin (Neurontin) 300 mg PO TID [facility] Last Admin: 10/30/16 18:21 Dose: 300 mg Gemfibrozil (Lopid) 600 mg PO BID [facility] Last Admin: 10/30/16 20:38 Dose: 600 mg Acyclovir 650 mg/ Sodium (Chloride) 100 mls @ 100 mls/hr IV Q8H [facility] Last Admin: 10/31/16 05:56 Dose: 100 mls/hr Sodium Chloride (Sodium Chloride 0.9%) 1,000 mls @ 70 mls/hr IV .[id number] [facility] Last Admin: 10/31/16 00:33 Dose: Not Given Cefepime HCl 2 gm/ Sodium (Chloride) 100 mls @ 100 mls/hr IVPB Q8H [facility] Last Admin: 10/30/16 23:41 Dose: 100 mls/hr Insulin Aspart (Novolog) 0 unit SC TIDAC [facility] PRN Reason: Protocol Last Admin: 10/30/16 17:31 Dose: Not Given Levothyroxine Sodium (Synthroid) 150 mcg PO DAILY@0630 [facility] Last Admin: 10/31/16 06:58 Dose: 150 mcg Metformin HCl (Glucophage) 500 mg PO BID [facility] Last Admin: 10/30/16 18:20 Dose: 500 mg Metoprolol Succinate (Toprol Xl) 25 mg PO BID [facility] Last Admin: 10/30/16 18:21 Dose: Not Given Mupirocin (Bactroban Ointment) 0 gm TOP BID [facility] Last Admin: 10/30/16 18:20 Dose: 1 applic Tramadol HCl (Ultram) 50 mg PO TID PRN PRN Reason: Pain, moderate (4-7) Last Admin: 10/30/16 23:48 Dose: 50 mg - Labs Labs: 10/31/16 06:41 10/31/16 06:41 - Constitutional Appears: Non-toxic, No Acute Distress - Head Exam Head Exam: ATRAUMATIC, NORMAL INSPECTION, NORMOCEPHALIC - Eye Exam Eye Exam: EOMI, Normal appearance - ENT Exam ENT Exam: Mucous Membranes Moist - Neck Exam Neck Exam: Full ROM, Normal Inspection - Respiratory Exam Respiratory Exam: Clear to Ausculation Bilateral, NORMAL BREATHING PATTERN. absent: Rales, Rhonchi, Wheezes - Cardiovascular Exam Cardiovascular Exam: Tachycardia, +S1, +S2 - GI/Abdominal Exam GI & Abdominal Exam: Soft, Normal Bowel Sounds - Extremities Exam Extremities Exam: Tenderness. absent: Normal Inspection Additional comments: tenderness to palpation of RUE - Back Exam Back Exam: NORMAL INSPECTION - Neurological Exam Neurological Exam: Alert, Awake, Oriented x3 - Psychiatric Exam Psychiatric exam: Normal Affect, Normal Mood - Skin Additional comments: Stable number of hemorrhagic grouped tense vesicles affecting right upper extremity particularly to ventral aspect. Vesicles appear to be opening and fluid beginning to crust. Some blood also was noted. Stable vesicles to palmar aspect of right hand which are painful to palpation. Grouped vesicles to right axillary fold which continue to be hemorrhagic. Grouped resolving vesicles to right upper back. 1mm papules with pustule and surround erythema sparsely distributed to abdomen with a few similarly appearing lesions also present to right upper extremity. Small tense vesicle with surrounding erythema noted to left upper extremity and left oblique. Nikolsky and Asboe-Roman signs negative. No desquamation or ulcerative lesions noted. Mild erythema to right nasal ala. Assessment and Plan - Assessment and Plan (Free Text) Assessment: Painful Vesicular/Pustular Rash likely Disseminated Herpes Zoster No leukocytosis , however patient continued to be febrile, tmax of 102.4 Must also consider Herpes Simplex infection in light of immunocompromised state with history of CLL and on Imbruvica therapy Eczema Herpeticum lower on differential given lack of ulcerative lesions Continue Acyclovir 650 mg IV q8h. Will monitor for possible resistance to anti- viral and should be started on foscarnet, vidarabine or cidofovir if resistance noted. If patient continues to develop fever, may consider switching therapy to foscarnet. Cefepime 2 gm IVPB Q8h added per ID to cover for possible secondary cellulitis. Continue Gabapentin 300 mg po TID to control pain. Ultram 50 mg po TID PRN also on for pain management. Will hold Imbruvica , discussed with Dr. Azevedo Infectious disease, Dr. Blunt, consulted and agrees with current management. Punch biopsy sent for direct fluorescent antigen (DFA) and immunohistochemistry (IHC) to confirm zoster Herpes zoster IgM antibody <=0.90, negative however levels could be low for >12 months post infection. If acute infection suspected, consider obtaining new specimen and submit for both IgG and IgM testing in 2-3 weeks. Herpes simplex 1/2 pcr - not detected Herpes simplex virus culture - negative Porphyria Cutanea Tarda, Pseudoporphyria and Dermatitis Herpetiformis low on differential diagnosis Iron studies show low iron is low which is not suggestive of PCT. Random porphobilinogen not performed as urine specimen not protected from light IgA 70.5. Endomysial scr IgA negative, tissue transglutaminase AB pending Punch Biopsy B to have DIF performed. Tylenol 650 mg po q6 PRN for fever Sepsis Tmax 102.4 Procalcitonin 0.11 Lactic acid 2.5 Band Neutrophils % 16 No leukocytosis, Neuts % 44.2 Pyrexia sepsis work up repeat blood cx x2, urinalysis, urine cx, cxr ordered procalcitonin and lactic acid ordered will follow-up to ensure no other concomitant source of infection Hyponatremia Improved, sodium of 129 Started on Normal Saline IV @ 70cc/hr Urine sodium random 50, urine osmolality 501, serum osmolality 275, urine uric acid 38.2 Lisinopril- held Nephrology, Dr. Magallanes, consulted. Help appreciated. Dr. De Santiago evaluated patient and agrees with sepsis work-up and fluids. Will recheck sodium this afternoon. Monitor Chronic Lymphocytic Leukemia [employer] Faculty Member/Oncologist, Dr. Azevedo, consulted Imbruvica 140 mg 3 capsules po daily - held Diabetes Mellitus Type II RISS Continue home medication Metformin 500 mg po BID Accuchecks Monitor Hypertension Hold home medications Lisinopril 2.5 mg po daily due to hyponatremia Continue Metoprolol 25 mg po BID Monitor Hyperlipidemia Continue home medication Gemfibrozil 600 mg po BID Prophylaxis SCD Heart Healthy Diet Chemical VTE CI due to thrombocytopenia <Joe Dalton H - Last Filed: 10/31/16 16:03> Objective - Vital Signs/Intake and Output Vital Signs (last 24 hours): Temp Pulse Resp BP Pulse Ox 99.2 F 100 H 20 117/76 99 10/30/16 23:46 10/30/16 23:46 10/30/16 23:46 10/30/16 23:46 10/30/16 23:46 Intake and Output: 10/31/16 10/31/16 06:59 18:59 Intake Total 1337 Balance 1337 - Medications Medications: Current Medications Acetaminophen (Tylenol 325mg Tab) 650 mg PO Q6 PRN PRN Reason: Pain, Mild (1-3), fever Last Admin: 10/30/16 16:27 Dose: 650 mg Gabapentin (Neurontin) 300 mg PO TID [facility] Last Admin: 10/31/16 13:19 Dose: 300 mg Gemfibrozil (Lopid) 600 mg PO BID [facility] Last Admin: 10/31/16 10:31 Dose: 600 mg Acyclovir 650 mg/ Sodium (Chloride) 100 mls @ 100 mls/hr IV Q8H [facility] Last Admin: 10/31/16 13:19 Dose: 100 mls/hr Sodium Chloride (Sodium Chloride 0.9%) 1,000 mls @ 70 mls/hr IV .[id number] [facility] Last Admin: 10/31/16 15:06 Dose: Not Given Cefepime HCl 2 gm/ Sodium (Chloride) 100 mls @ 100 mls/hr IVPB Q8H [facility] Last Admin: 10/31/16 10:31 Dose: 100 mls/hr Insulin Aspart (Novolog) 0 unit SC TIDAC [facility] PRN Reason: Protocol Last Admin: 10/31/16 13:09 Dose: Not Given Levothyroxine Sodium (Synthroid) 150 mcg PO DAILY@0630 [facility] Last Admin: 10/31/16 06:58 Dose: 150 mcg Metformin HCl (Glucophage) 500 mg PO BID [facility] Last Admin: 10/31/16 10:30 Dose: 500 mg Metoprolol Succinate (Toprol Xl) 25 mg PO BID [facility] Last Admin: 10/31/16 10:31 Dose: 25 mg Mupirocin (Bactroban Ointment) 0 gm TOP BID [facility] Last Admin: 10/31/16 10:00 Dose: 1 applic Tramadol HCl (Ultram) 50 mg PO TID PRN PRN Reason: Pain, moderate (4-7) Last Admin: 10/31/16 13:27 Dose: 50 mg - Labs Labs: 10/31/16 06:41 10/31/16 06:41 Attending/Attestation - Attestation I have personally seen and examined this patient.: Yes I have fully participated in the care of the patient.: Yes I have reviewed all pertinent clinical information, including history, physical exam and plan: Yes Notes (Text): 10/31/16 15:55 Medical attending: Patient was seen and examined by me, agrees the above note by medical massage therapist. As documented above the resident note there is still a lot of vesicles some of which are weeping at this time. He did not have large temperature spikes at this time, he was changed to cefepime. Repeat blood cultures have been negative for 24 hrs thank you Joe Dalton
[2016-10-31 10:17] LABS: TISSUE TRANSGLUTAM AB IGA 1 U/mL (<4)
[2016-10-31] MEDS: (Novolog) Insulin Aspart, Recombinant 100 u/ml 10 ml vial SC SCH ×3 (10:20→16:30)
[2016-10-31] MEDS: Metoprolol Succinate 25 mg XL Tab PO SCH ×2 (10:31→17:42)
[2016-10-31] MEDS: Cefepime 2 GM in Sodium Chloride 0.9% 100 ML IVPB SCH ×2 (10:31→17:46)
--- NOTE | 2016-10-31 14:41 | CP.PCM.PN ---
Subjective - Date & Time of Evaluation Date of Evaluation: 10/31/16 Time of Evaluation: 14:37 - Subjective Subjective: Events noted; reviewed chart Rash not progressing now as per records/ chart Na today better- at 129 Urine parameters c/w SIADH. serum uric acid not available Objective - Vital Signs/Intake and Output Vital Signs (last 24 hours): Temp Pulse Resp BP Pulse Ox 99.2 F 100 H 20 117/76 99 10/30/16 23:46 10/30/16 23:46 10/30/16 23:46 10/30/16 23:46 10/30/16 23:46 Intake and Output: 10/31/16 10/31/16 06:59 18:59 Intake Total 1337 Balance 1337 - Medications Medications: Current Medications Acetaminophen (Tylenol 325mg Tab) 650 mg PO Q6 PRN PRN Reason: Pain, Mild (1-3), fever Last Admin: 10/30/16 16:27 Dose: 650 mg Gabapentin (Neurontin) 300 mg PO TID [facility] Last Admin: 10/31/16 13:19 Dose: 300 mg Gemfibrozil (Lopid) 600 mg PO BID [facility] Last Admin: 10/31/16 10:31 Dose: 600 mg Acyclovir 650 mg/ Sodium (Chloride) 100 mls @ 100 mls/hr IV Q8H [facility] Last Admin: 10/31/16 13:19 Dose: 100 mls/hr Sodium Chloride (Sodium Chloride 0.9%) 1,000 mls @ 70 mls/hr IV .[id number] [facility] Last Admin: 10/31/16 00:33 Dose: Not Given Cefepime HCl 2 gm/ Sodium (Chloride) 100 mls @ 100 mls/hr IVPB Q8H [facility] Last Admin: 10/31/16 10:31 Dose: 100 mls/hr Insulin Aspart (Novolog) 0 unit SC TIDAC [facility] PRN Reason: Protocol Last Admin: 10/31/16 13:09 Dose: Not Given Levothyroxine Sodium (Synthroid) 150 mcg PO DAILY@0630 [facility] Last Admin: 10/31/16 06:58 Dose: 150 mcg Metformin HCl (Glucophage) 500 mg PO BID [facility] Last Admin: 10/31/16 10:30 Dose: 500 mg Metoprolol Succinate (Toprol Xl) 25 mg PO BID [facility] Last Admin: 10/31/16 10:31 Dose: 25 mg Mupirocin (Bactroban Ointment) 0 gm TOP BID [facility] Last Admin: 10/31/16 10:00 Dose: 1 applic Tramadol HCl (Ultram) 50 mg PO TID PRN PRN Reason: Pain, moderate (4-7) Last Admin: 10/31/16 13:27 Dose: 50 mg - Labs Labs: 10/31/16 06:41 10/31/16 06:41 - Constitutional Appears: No Acute Distress, Chronically Ill - Head Exam Head Exam: ATRAUMATIC, NORMAL INSPECTION - Eye Exam Eye Exam: EOMI, Normal appearance - Neck Exam Neck Exam: Normal Inspection. absent: Tenderness - Respiratory Exam Respiratory Exam: Clear to Ausculation Bilateral, NORMAL BREATHING PATTERN - Cardiovascular Exam Cardiovascular Exam: REGULAR RHYTHM, +S1 - GI/Abdominal Exam GI & Abdominal Exam: Soft. absent: Tenderness - Extremities Exam Extremities Exam: Normal Inspection. absent: Tenderness - Neurological Exam Neurological Exam: Alert, CN II-XII Intact - Skin Skin Exam: Vesicles, Warm Assessment and Plan (1) CLL (chronic lymphocytic leukemia) Status: Acute (2) Hyponatremia Status: Acute (3) Skin lesion Status: Acute (4) SIADH (syndrome of inappropriate ADH production) Status: Acute - Assessment and Plan (Free Text) Plan: Recheck urine studies, uric acid Oral fluid restriction If Na drops, stop IV saline
[2016-10-31 16:22] LABS: RBC URINE < 1 /hpf (0-3); URINE BILIRUBIN NEGATIVE (NEGATIVE); URINE BLOOD NEGATIVE (NEGATIVE); URINE COLOR Straw (YELLOW); URINE GLUCOSE (UA) NORMAL (Normal); URINE KETONE NEGATIVE (NEGATIVE); URINE LEUKOCYTE ESTERASE NEG Leu/uL (Negative); URINE PROTEIN NEGATIVE (NEGATIVE); URINE UROBILINOGEN NORMAL mg/dL (0.2-1.0); WBC URINE < 1 /hpf (0-5)
[2016-11-01] MEDS: Cefepime 2 GM in Sodium Chloride 0.9% 100 ML IVPB SCH ×4 (01:21→23:52)
[2016-11-01] MEDS: Levothyroxine 150 MCG TAB PO SCH (05:31)
[2016-11-01] MEDS: Sodium Chloride 0.9% 1,000 ML IV SCH ×2 (05:32→19:30)
--- NOTE | 2016-11-01 07:34 | CP.PCM.PN ---
<EmeraldMercedes - Last Filed: 11/01/16 14:40> Subjective - Date & Time of Evaluation Date of Evaluation: 11/01/16 Time of Evaluation: 07:34 - Subjective Subjective: Patient seen and examined at bedside. Patient reports vesicular rash is slowly improving. He still reports pain to his right hand and difficulty with making a fist. He denies fever and chills. Patient is continuing to tolerate diet. He denies abdominal pain, nausea, vomiting, and diarrhea. He also denies chest pain , SOB, headache, visual disturbances, dysuria and urinary frequency. Objective - Vital Signs/Intake and Output Vital Signs (last 24 hours): Temp Pulse Resp BP Pulse Ox 97.5 F L 66 18 100/60 99 11/01/16 00:00 11/01/16 00:00 11/01/16 00:00 11/01/16 00:00 11/01/16 00:00 Intake and Output: 11/01/16 11/01/16 06:59 18:59 Intake Total 960 Balance 960 - Medications Medications: Current Medications Acetaminophen (Tylenol 325mg Tab) 650 mg PO Q6 PRN PRN Reason: Pain, Mild (1-3), fever Last Admin: 10/30/16 16:27 Dose: 650 mg Gabapentin (Neurontin) 300 mg PO TID [facility] Last Admin: 10/31/16 17:42 Dose: 300 mg Gemfibrozil (Lopid) 600 mg PO BID [facility] Last Admin: 10/31/16 17:42 Dose: 600 mg Acyclovir 650 mg/ Sodium (Chloride) 100 mls @ 100 mls/hr IV Q8H [facility] Last Admin: 11/01/16 05:27 Dose: 100 mls/hr Sodium Chloride (Sodium Chloride 0.9%) 1,000 mls @ 70 mls/hr IV .[id number] [facility] Last Admin: 11/01/16 05:32 Dose: Not Given Cefepime HCl 2 gm/ Sodium (Chloride) 100 mls @ 100 mls/hr IVPB Q8H [facility] Last Admin: 11/01/16 01:21 Dose: 100 mls/hr Insulin Aspart (Novolog) 0 unit SC TIDAC [facility] PRN Reason: Protocol Last Admin: 10/31/16 16:30 Dose: Not Given Levothyroxine Sodium (Synthroid) 150 mcg PO DAILY@0630 [facility] Last Admin: 11/01/16 05:31 Dose: 150 mcg Metformin HCl (Glucophage) 500 mg PO BID [facility] Last Admin: 10/31/16 17:42 Dose: 500 mg Metoprolol Succinate (Toprol Xl) 25 mg PO BID [facility] Last Admin: 10/31/16 17:42 Dose: 25 mg Mupirocin (Bactroban Ointment) 0 gm TOP BID [facility] Last Admin: 10/31/16 17:45 Dose: 1 applic Tramadol HCl (Ultram) 50 mg PO TID PRN PRN Reason: Pain, moderate (4-7) Last Admin: 10/31/16 13:27 Dose: 50 mg - Labs Labs: 10/31/16 06:41 10/31/16 06:41 - Constitutional Appears: Non-toxic, No Acute Distress - Head Exam Head Exam: ATRAUMATIC, NORMAL INSPECTION, NORMOCEPHALIC - Eye Exam Eye Exam: EOMI, Normal appearance, PERRL - ENT Exam ENT Exam: Mucous Membranes Moist, Normal Exam Additional comments: no mucousal lesions notes - Respiratory Exam Respiratory Exam: Clear to Ausculation Bilateral, NORMAL BREATHING PATTERN. absent: Rales, Rhonchi, Wheezes - Cardiovascular Exam Cardiovascular Exam: +S1, +S2. absent: Tachycardia - GI/Abdominal Exam GI & Abdominal Exam: Soft, Normal Bowel Sounds. absent: Firm, Rigid, Tenderness - Extremities Exam Extremities Exam: Tenderness. absent: Pedal Edema Additional comments: vesicular rash present to LUE. See skin exam. - Neurological Exam Neurological Exam: Alert, Awake, Oriented x3 - Psychiatric Exam Psychiatric exam: Normal Affect, Normal Mood - Skin Additional comments: Stable number of hemorrhagic grouped tense vesicles affecting right upper extremity particularly to ventral aspect. Vesicles appear continue to open and crust. Stable vesicles to palmar aspect of right hand which are painful to palpation. Grouped vesicles to right axillary fold which continue to be hemorrhagic. Grouped resolving vesicles to right upper back. 1mm papules with pustule and surround erythema sparsely distributed to abdomen with a few similarly appearing lesions also present to right upper extremity. Small tense vesicle with surrounding erythema noted to left upper extremity and left oblique. Nikolsky and Asboe-Roman signs negative. No desquamation or ulcerative lesions noted. Assessment and Plan - Assessment and Plan (Free Text) Assessment: Painful Vesicular/Pustular Rash likely Disseminated Herpes Zoster No leukocytosis , afebrile Must also consider Herpes Simplex infection in light of immunocompromised state with history of CLL and on Imbruvica therapy Eczema Herpeticum lower on differential given lack of ulcerative lesions Continue Acyclovir 650 mg IV q8h. Will monitor for possible resistance to anti- viral and should be started on foscarnet, vidarabine or cidofovir if resistance noted. If patient continues to develop fever, may consider switching therapy to foscarnet. Cefepime 2 gm IVPB Q8h added per ID to cover for possible secondary cellulitis. Continue topical mupirocen Continue Gabapentin 300 mg po TID to control pain. Ultram 50 mg po TID PRN also on for pain management. Will hold Imbruvica , discussed with Dr. Azevedo Infectious disease, Dr. Blunt, consulted and agrees with current management. Punch biopsy sent for direct fluorescent antigen (DFA) and immunohistochemistry (IHC) to confirm zoster Herpes zoster IgM antibody <=0.90, negative however levels could be low for >12 months post infection. If acute infection suspected, consider obtaining new specimen and submit for both IgG and IgM testing in 2-3 weeks. Herpes simplex 1/2 pcr - not detected Herpes simplex virus culture - negative Porphyria Cutanea Tarda, Pseudoporphyria and Dermatitis Herpetiformis low on differential diagnosis Iron studies show low iron is low which is not suggestive of PCT. Random porphobilinogen not performed as urine specimen not protected from light IgA 70.5. Endomysial scr IgA negative, tissue transglutaminase AB pending Punch Biopsy B to have DIF performed. Tylenol 650 mg po q6 PRN for fever Sepsis Afebrile Procalcitonin 0.11 Lactic acid 2.5 Band Neutrophils % 16 No leukocytosis, Neuts % 44.2 Pyrexia Resolved sepsis work up repeat blood cx x2, urinalysis, urine cx, cxr ordered procalcitonin and lactic acid ordered will follow-up to ensure no other concomitant source of infection Hyponatremia likely SIADH Resolved Continue Normal Saline IV @ 70cc/hr Urine sodium random 50, urine osmolality 501, serum osmolality 275, urine uric acid 38.2 Lisinopril- held Nephrology, Dr. Magallanes, consulted. Help appreciated. Dr. De Santiago evaluated patient and agrees with sepsis work-up and fluids. Will recheck sodium this afternoon. Monitor Chronic Lymphocytic Leukemia Freezer Operator/Oncologist, Dr. Azevedo, consulted Imbruvica 140 mg 3 capsules po daily - held Pancytopenia likely secondry to CLL and Imbruvica Dr. Azevedo consulted. Notes thrombocytopenia possibly exacerbated due to acute illness/meds Diabetes Mellitus Type II RISS Continue home medication Metformin 500 mg po BID Accuchecks Monitor Hypertension Hold home medications Lisinopril 2.5 mg po daily due to hyponatremia Continue Metoprolol 25 mg po BID Monitor Hyperlipidemia Continue home medication Gemfibrozil 600 mg po BID Prophylaxis SCD Heart Healthy Diet Chemical VTE CI due to thrombocytopenia <Joe Dalton H - Last Filed: 11/01/16 16:37> Objective - Vital Signs/Intake and Output Vital Signs (last 24 hours): Temp Pulse Resp BP Pulse Ox 97.5 F L 66 18 100/60 99 11/01/16 00:00 11/01/16 00:00 11/01/16 00:00 11/01/16 00:00 11/01/16 00:00 Intake and Output: 11/01/16 11/01/16 06:59 18:59 Intake Total 960 560 Balance 960 560 - Medications Medications: Current Medications Acetaminophen (Tylenol 325mg Tab) 650 mg PO Q6 PRN PRN Reason: Pain, Mild (1-3), fever Last Admin: 10/30/16 16:27 Dose: 650 mg Gabapentin (Neurontin) 300 mg PO TID [facility] Last Admin: 11/01/16 13:42 Dose: 300 mg Gemfibrozil (Lopid) 600 mg PO BID [facility] Last Admin: 11/01/16 10:20 Dose: 600 mg Acyclovir 650 mg/ Sodium (Chloride) 100 mls @ 100 mls/hr IV Q8H [facility] Last Admin: 11/01/16 12:30 Dose: 100 mls/hr Sodium Chloride (Sodium Chloride 0.9%) 1,000 mls @ 70 mls/hr IV .[id number] [facility] Last Admin: 11/01/16 05:32 Dose: Not Given Cefepime HCl 2 gm/ Sodium (Chloride) 100 mls @ 100 mls/hr IVPB Q8H [facility] Last Admin: 11/01/16 10:20 Dose: 100 mls/hr Insulin Aspart (Novolog) 0 unit SC TIDAC [facility] PRN Reason: Protocol Last Admin: 11/01/16 13:37 Dose: Not Given Levothyroxine Sodium (Synthroid) 150 mcg PO DAILY@0630 [facility] Last Admin: 11/01/16 05:31 Dose: 150 mcg Metformin HCl (Glucophage) 500 mg PO BID [facility] Last Admin: 11/01/16 10:20 Dose: 500 mg Metoprolol Succinate (Toprol Xl) 25 mg PO BID [facility] Last Admin: 11/01/16 10:20 Dose: 25 mg Mupirocin (Bactroban Ointment) 0 gm TOP BID [facility] Last Admin: 11/01/16 10:20 Dose: 1 applic Tramadol HCl (Ultram) 50 mg PO TID PRN PRN Reason: Pain, moderate (4-7) Last Admin: 11/01/16 13:45 Dose: 50 mg - Labs Labs: 11/01/16 08:47 11/01/16 08:47 Attending/Attestation - Attestation I have personally seen and examined this patient.: Yes I have fully participated in the care of the patient.: Yes I have reviewed all pertinent clinical information, including history, physical exam and plan: Yes Notes (Text): Medical attending: Patient was seen and examined by me, agrees the above note by medical secretary teacher. The patient has not had any fevers recently. The cultures remain negative at this time. As reported before we switched over from Ancef to over to cefepime. He remains on IV acyclovir at this moment with topical ointment. His pain is under control with the gabapentin as well as Ultram Thank you very much, Joe Dalton
[2016-11-01] MEDS: (Novolog) Insulin Aspart, Recombinant 100 u/ml 10 ml vial SC SCH ×3 (07:47→16:30)
[2016-11-01 09:09] LABS: BASO % 0.5 % (0.0-2.0); EOS % 0.2 % (0.0-4.0); HEMATOCRIT 31.3 % (35.0-51.0); LYMPH % 53.9 % (20.0-40.0); MEAN CELL VOLUME 97.2 fL (80.0-94.0); MEAN CORPUSCULAR HEMOGLOBIN 32.7 pg (27.0-31.0); MEAN CORPUSCULAR HGB CONC 33.6 g/dL (33.0-37.0); MONO # 0.5 K/uL (0.0-0.8); NRBC % 0.1 % (0.0-2.0); RED CELL DISTRIBUTION WIDTH 13.9 % (11.5-14.5); WHITE BLOOD COUNT 3.8 K/uL (4.8-10.8)
[2016-11-01 09:31] LABS: CHLORIDE 103 mmol/L (98-107); POTASSIUM 3.9 mmol/L (3.6-5.2); SODIUM 134 mmol/L (132-148)
[2016-11-01 09:33] LABS: BILIRUBIN,TOTAL 0.5 mg/dL (0.2-1.3); GFR AFRICAN-AMERICAN > 60
[2016-11-01 09:34] LABS: ALB/GLOB RATIO 1.1 (1.0-2.1); ALKALINE PHOSPHATASE 66 U/L (38-126); ALT/SGPT 43 U/L (21-72); AST/SGOT 37 U/L (17-59); BLOOD UREA NITROGEN 15 mg/dL (9-20); CALCIUM 7.9 mg/dl (8.6-10.4); CARBON DIOXIDE 21 mmol/L (22-30); GLUCOSE,RANDOM 104 mg/dL (75-110); PHOSPHOROUS 3.2 mg/dL (2.5-4.5); TOTAL PROTEIN 5.9 g/dL (6.3-8.3); URIC ACID 4.1 mg/dL (3.5-8.5)
[2016-11-01 09:35] LABS: MAGNESIUM 2.4 mg/dL (1.6-2.3)
[2016-11-01] MEDS: Metoprolol Succinate 25 mg XL Tab PO SCH ×2 (10:20→18:15)
--- NOTE | 2016-11-01 11:08 | CP.PCM.PN ---
Subjective - Date & Time of Evaluation Date of Evaluation: 11/01/16 Time of Evaluation: 11:06 - Subjective Subjective: Remains on IV antimicrobials for viral rash No new complaints- no new fevers, chills,n, v, diarrhea Na better at 134 Will continue same rxs Objective - Vital Signs/Intake and Output Vital Signs (last 24 hours): Temp Pulse Resp BP Pulse Ox 97.5 F L 66 18 100/60 99 11/01/16 00:00 11/01/16 00:00 11/01/16 00:00 11/01/16 00:00 11/01/16 00:00 Intake and Output: 11/01/16 11/01/16 06:59 18:59 Intake Total 960 Balance 960 - Medications Medications: Current Medications Acetaminophen (Tylenol 325mg Tab) 650 mg PO Q6 PRN PRN Reason: Pain, Mild (1-3), fever Last Admin: 10/30/16 16:27 Dose: 650 mg Gabapentin (Neurontin) [address] [facility] Last Admin: 11/01/16 10:20 Dose: 300 mg Gemfibrozil (Lopid) [address] [facility] Last Admin: 11/01/16 10:20 Dose: 600 mg Acyclovir 650 mg/ Sodium (Chloride) 100 mls @ 100 mls/hr IV Q8H [facility] Last Admin: 11/01/16 05:27 Dose: 100 mls/hr Sodium Chloride (Sodium Chloride 0.9%) 1,000 mls @ 70 mls/hr IV .[id number] [facility] Last Admin: 11/01/16 05:32 Dose: Not Given Cefepime HCl 2 gm/ Sodium (Chloride) 100 mls @ 100 mls/hr IVPB Q8H [facility] Last Admin: 11/01/16 10:20 Dose: 100 mls/hr Insulin Aspart (Novolog) [address] [facility] PRN Reason: Protocol Last Admin: 11/01/16 07:47 Dose: Not Given Levothyroxine Sodium (Synthroid) 150 mcg PO DAILY@0630 [facility] Last Admin: 11/01/16 05:31 Dose: 150 mcg Metformin HCl (Glucophage) [address] [facility] Last Admin: 11/01/16 10:20 Dose: 500 mg Metoprolol Succinate (Toprol Xl) [address] [facility] Last Admin: 11/01/16 10:20 Dose: 25 mg Mupirocin (Bactroban Ointment) [address] [facility] Last Admin: 11/01/16 10:20 Dose: 1 applic Tramadol HCl (Ultram) 50 mg PO TID PRN PRN Reason: Pain, moderate (4-7) Last Admin: 10/31/16 13:27 Dose: 50 mg - Labs Labs: 11/01/16 08:47 11/01/16 08:47 - Constitutional Appears: No Acute Distress, Chronically Ill - Head Exam Head Exam: ATRAUMATIC, NORMAL INSPECTION - Eye Exam Eye Exam: EOMI, Normal appearance - Neck Exam Neck Exam: Normal Inspection. absent: Tenderness - Respiratory Exam Respiratory Exam: Clear to Ausculation Bilateral, NORMAL BREATHING PATTERN - Cardiovascular Exam Cardiovascular Exam: REGULAR RHYTHM, +S1 - GI/Abdominal Exam GI & Abdominal Exam: Soft. absent: Tenderness - Extremities Exam Extremities Exam: Normal Inspection. absent: Tenderness - Neurological Exam Neurological Exam: Alert, CN II-XII Intact - Skin Skin Exam: Rash, Vesicles Assessment and Plan (1) CLL (chronic lymphocytic leukemia) Status: Acute (2) Hyponatremia Status: Acute (3) Skin lesion Status: Acute (4) SIADH (syndrome of inappropriate ADH production) Status: Acute - Assessment and Plan (Free Text) Plan: Monitor Na levels Continue same antimicrobials
[2016-11-01 11:47] LABS: RUBELLA AB (IGG) 1.69 index
[2016-11-01 12:20] LABS: MEASLES AB (IGG) >300.00 AU/mL
[2016-11-02] MEDS: Levothyroxine 150 MCG TAB PO SCH (05:50)
--- NOTE | 2016-11-02 07:01 | CP.PCM.PN ---
<EmeraldMercedes - Last Filed: 11/02/16 11:19> Subjective - Date & Time of Evaluation Date of Evaluation: 11/02/16 Time of Evaluation: 07:00 - Subjective Subjective: Patient seen and examined at bedside. Patient reports he is comfortable and does not think rash is worsening. His pain is controlled on pain medications. He continues to have full range of motion of his right hand. He denies fever and chills. Patient is continuing to tolerate diet. He denies abdominal pain, nausea, vomiting, and diarrhea. He also denies chest pain, SOB, headache, visual disturbances, dysuria and urinary frequency. Objective - Vital Signs/Intake and Output Vital Signs (last 24 hours): Temp Pulse Resp BP Pulse Ox 97.8 F 86 20 131/81 99 11/01/16 23:46 11/01/16 23:46 11/01/16 23:46 11/01/16 23:46 11/01/16 23:46 - Medications Medications: Current Medications Acetaminophen (Tylenol 325mg Tab) 650 mg PO Q6 PRN PRN Reason: Pain, Mild (1-3), fever Last Admin: 10/30/16 16:27 Dose: 650 mg Gabapentin (Neurontin) 300 mg PO TID [facility] Last Admin: 11/01/16 18:15 Dose: 300 mg Gemfibrozil (Lopid) 600 mg PO BID [facility] Last Admin: 11/01/16 18:15 Dose: 600 mg Acyclovir 650 mg/ Sodium (Chloride) 100 mls @ 100 mls/hr IV Q8H [facility] Last Admin: 11/02/16 05:50 Dose: 100 mls/hr Sodium Chloride (Sodium Chloride 0.9%) 1,000 mls @ 70 mls/hr IV .[id number] [facility] Last Admin: 11/01/16 19:30 Dose: Not Given Cefepime HCl 2 gm/ Sodium (Chloride) 100 mls @ 100 mls/hr IVPB Q8H [facility] Last Admin: 11/01/16 23:52 Dose: 100 mls/hr Insulin Aspart (Novolog) 0 unit SC TIDAC [facility] PRN Reason: Protocol Last Admin: 11/01/16 16:30 Dose: Not Given Levothyroxine Sodium (Synthroid) 150 mcg PO DAILY@0630 [facility] Last Admin: 11/02/16 05:50 Dose: 150 mcg Metformin HCl (Glucophage) 500 mg PO BID [facility] Last Admin: 11/01/16 18:15 Dose: 500 mg Metoprolol Succinate (Toprol Xl) 25 mg PO BID [facility] Last Admin: 11/01/16 18:15 Dose: 25 mg Mupirocin (Bactroban Ointment) 0 gm TOP BID [facility] Last Admin: 11/01/16 18:00 Dose: 1 applic Tramadol HCl (Ultram) 50 mg PO TID PRN PRN Reason: Pain, moderate (4-7) Last Admin: 11/01/16 13:45 Dose: 50 mg - Labs Labs: 11/01/16 08:47 11/01/16 08:47 - Constitutional Appears: Non-toxic, No Acute Distress - Head Exam Head Exam: ATRAUMATIC, NORMAL INSPECTION, NORMOCEPHALIC - Eye Exam Eye Exam: EOMI, Normal appearance, PERRL - ENT Exam ENT Exam: Mucous Membranes Moist - Neck Exam Neck Exam: Full ROM - Respiratory Exam Respiratory Exam: Clear to Ausculation Bilateral, NORMAL BREATHING PATTERN. absent: Rales, Rhonchi, Wheezes - Cardiovascular Exam Cardiovascular Exam: +S1, +S2. absent: Bradycardia, Tachycardia - GI/Abdominal Exam GI & Abdominal Exam: Soft, Normal Bowel Sounds. absent: Firm, Rigid, Tenderness - Extremities Exam Extremities Exam: Tenderness. absent: Pedal Edema Additional comments: tenderness to palpation of RUE - Neurological Exam Neurological Exam: Alert, Awake, Oriented x3 - Psychiatric Exam Psychiatric exam: Normal Affect, Normal Mood - Skin Additional comments: Stable number of hemorrhagic grouped tense vesicles affecting right upper extremity particularly to ventral aspect. Vesicles appear continue to open and crust. Stable vesicles to palmar aspect of right hand which are painful to palpation. Grouped vesicles to right axillary fold which continue to be hemorrhagic. Grouped resolving vesicles to right upper back. 1mm papules with pustule and surround erythema sparsely distributed to abdomen with a few similarly appearing lesions also present to right upper extremity. Small tense vesicle with surrounding erythema noted to left upper extremity and left oblique. Nikolsky and Asboe-Roman signs negative. No desquamation or ulcerative lesions noted. Assessment and Plan - Assessment and Plan (Free Text) Assessment: Painful Vesicular/Pustular Rash likely Disseminated Herpes Zoster No leukocytosis , afebrile Must also consider Herpes Simplex infection in light of immunocompromised state with history of CLL and on Imbruvica therapy Eczema Herpeticum lower on differential given lack of ulcerative lesions Continue Acyclovir 650 mg IV q8h. Will likely need IV Acyclovir until at least Saturday. Will monitor for possible resistance to anti-viral and should be started on foscarnet, vidarabine or cidofovir if resistance noted. Cefepime 2 gm IVPB Q8h added per ID to cover for possible secondary cellulitis. Continue topical mupirocen Continue Gabapentin 300 mg po TID to control pain. Ultram 50 mg po TID PRN also on for pain management. Will hold Imbruvica , discussed with Dr. Azevedo Infectious disease, Dr. Blunt, consulted and agrees with current management. Punch biopsy sent for direct fluorescent antigen (DFA) and immunohistochemistry (IHC) to confirm zoster. Follow-up pathology report. Herpes zoster IgM antibody <=0.90, negative however levels could be low for >12 months post infection. If acute infection suspected, consider obtaining new specimen and submit for both IgG and IgM testing in 2-3 weeks. Herpes simplex 1/2 pcr - not detected Herpes simplex virus culture - negative Porphyria Cutanea Tarda, Pseudoporphyria and Dermatitis Herpetiformis low on differential diagnosis Iron studies show low iron is low which is not suggestive of PCT. Random porphobilinogen not performed as urine specimen not protected from light IgA 70.5. Endomysial scr IgA negative, tissue transglutaminase AB pending Punch Biopsy B to have DIF performed. Tylenol 650 mg po q6 PRN for fever Sepsis Afebrile Procalcitonin 0.11 Lactic acid 2.5 Band Neutrophils % 16 No leukocytosis, Neuts % 44.2 Pyrexia Resolved sepsis work up repeat blood cx x2, urinalysis, urine cx, cxr ordered procalcitonin and lactic acid ordered will follow-up to ensure no other concomitant source of infection Hyponatremia likely SIADH Resolved Continue Normal Saline IV @ 70cc/hr Urine sodium random 50, urine osmolality 501, serum osmolality 275, urine uric acid 38.2 Lisinopril- held Nephrology, Dr. Magallanes, consulted. Help appreciated. Dr. De Santiago evaluated patient and agrees with sepsis work-up and fluids. Will recheck sodium this afternoon. Monitor Chronic Lymphocytic Leukemia Fiber Picker/Oncologist, Dr. Azevedo, consulted Imbruvica 140 mg 3 capsules po daily - held Pancytopenia likely secondry to CLL and Imbruvica Dr. Azevedo consulted. Notes thrombocytopenia possibly exacerbated due to acute illness/meds Diabetes Mellitus Type II RISS Continue home medication Metformin 500 mg po BID Accuchecks Monitor Hypertension Hold home medications Lisinopril 2.5 mg po daily due to hyponatremia Continue Metoprolol 25 mg po BID Monitor Hyperlipidemia Continue home medication Gemfibrozil 600 mg po BID Prophylaxis SCD Heart Healthy Diet Chemical VTE CI due to thrombocytopenia <Joe Dalton H - Last Filed: 11/02/16 16:18> Objective - Vital Signs/Intake and Output Vital Signs (last 24 hours): Temp Pulse Resp BP Pulse Ox 97.9 F 81 20 107/70 97 11/02/16 08:00 11/02/16 08:00 11/02/16 08:00 11/02/16 08:00 11/02/16 08:00 Intake and Output: 11/02/16 11/02/16 06:59 18:59 Intake Total 580 Balance 580 - Medications Medications: Current Medications Acetaminophen (Tylenol 325mg Tab) 650 mg PO Q6 PRN PRN Reason: Pain, Mild (1-3), fever Last Admin: 10/30/16 16:27 Dose: 650 mg Gabapentin (Neurontin) 300 mg PO TID [facility] Last Admin: 11/02/16 13:03 Dose: 300 mg Gemfibrozil (Lopid) 600 mg PO BID [facility] Last Admin: 11/02/16 09:58 Dose: 600 mg Acyclovir 650 mg/ Sodium (Chloride) 100 mls @ 100 mls/hr IV Q8H [facility] Last Admin: 11/02/16 13:03 Dose: 100 mls/hr Sodium Chloride (Sodium Chloride 0.9%) 1,000 mls @ 70 mls/hr IV .[id number] [facility] Last Admin: 11/02/16 10:00 Dose: Not Given Cefepime HCl 2 gm/ Sodium (Chloride) 100 mls @ 100 mls/hr IVPB Q8H [facility] Last Admin: 11/02/16 16:01 Dose: 100 mls/hr Insulin Aspart (Novolog) 0 unit SC TIDAC [facility] PRN Reason: Protocol Last Admin: 11/02/16 13:03 Dose: 2 unit Levothyroxine Sodium (Synthroid) 150 mcg PO DAILY@0630 [facility] Last Admin: 11/02/16 05:50 Dose: 150 mcg Metformin HCl (Glucophage) 500 mg PO BID [facility] Last Admin: 11/02/16 09:58 Dose: 500 mg Metoprolol Succinate (Toprol Xl) 25 mg PO BID [facility] Last Admin: 11/02/16 09:58 Dose: 25 mg Mupirocin (Bactroban Ointment) 0 gm TOP BID [facility] Last Admin: 11/02/16 09:59 Dose: 1 applic Tramadol HCl (Ultram) 50 mg PO TID PRN PRN Reason: Pain, moderate (4-7) Last Admin: 11/01/16 13:45 Dose: 50 mg - Labs Labs: 11/02/16 11:41 11/02/16 11:41 Attending/Attestation - Attestation I have personally seen and examined this patient.: Yes I have fully participated in the care of the patient.: Yes I have reviewed all pertinent clinical information, including history, physical exam and plan: Yes Notes (Text): 11/02/16 16:16 Medical attending: Patient was seen and examined by me, agree with the above note by medical biller. That the patient reported the pain was under control and he saw him per inspection of the large amounts of vesicles and papules he still has areas that have some weeping and drainage. That being said some of the areas or more dry than before he is getting mupirocin cream as well. His white blood cell count is stable at this time, he is no longer having fevers. Blood cultures have been negative. As reported before we change the patient over to cefepime IV. Said this time the patient will be on IV acyclovir until next week and hopefully will address change clerk at some point to oral acyclovir if the lesions on his hands and arms improved further Thank you very much, Joe Dalton
[2016-11-02] MEDS: (Novolog) Insulin Aspart, Recombinant 100 u/ml 10 ml vial SC SCH ×3 (08:27→18:16)
[2016-11-02] MEDS: Metoprolol Succinate 25 mg XL Tab PO SCH ×2 (09:58→17:31)
[2016-11-02] MEDS: Cefepime 2 GM in Sodium Chloride 0.9% 100 ML IVPB SCH ×3 (09:58→23:48)
[2016-11-02] MEDS: Sodium Chloride 0.9% 1,000 ML IV SCH ×2 (10:00→17:42)
--- NOTE | 2016-11-02 10:33 | CP.PCM.PN ---
Subjective - Date & Time of Evaluation Date of Evaluation: 11/01/16 Time of Evaluation: 13:05 - Subjective Subjective: Feeling better Objective - Vital Signs/Intake and Output Vital Signs (last 24 hours): Temp Pulse Resp BP Pulse Ox 97.9 F 81 20 107/70 97 11/02/16 08:00 11/02/16 08:00 11/02/16 08:00 11/02/16 08:00 11/02/16 08:00 - Medications Medications: Current Medications Acetaminophen (Tylenol 325mg Tab) 650 mg PO Q6 PRN PRN Reason: Pain, Mild (1-3), fever Last Admin: 10/30/16 16:27 Dose: 650 mg Gabapentin (Neurontin) 300 mg PO TID [facility] Last Admin: 11/02/16 09:59 Dose: 300 mg Gemfibrozil (Lopid) 600 mg PO BID [facility] Last Admin: 11/02/16 09:58 Dose: 600 mg Acyclovir 650 mg/ Sodium (Chloride) 100 mls @ 100 mls/hr IV Q8H [facility] Last Admin: 11/02/16 05:50 Dose: 100 mls/hr Sodium Chloride (Sodium Chloride 0.9%) 1,000 mls @ 70 mls/hr IV .[id number] [facility] Last Admin: 11/02/16 10:00 Dose: Not Given Cefepime HCl 2 gm/ Sodium (Chloride) 100 mls @ 100 mls/hr IVPB Q8H [facility] Last Admin: 11/02/16 09:58 Dose: 100 mls/hr Insulin Aspart (Novolog) 0 unit SC TIDAC [facility] PRN Reason: Protocol Last Admin: 11/02/16 08:27 Dose: Not Given Levothyroxine Sodium (Synthroid) 150 mcg PO DAILY@0630 [facility] Last Admin: 11/02/16 05:50 Dose: 150 mcg Metformin HCl (Glucophage) 500 mg PO BID [facility] Last Admin: 11/02/16 09:58 Dose: 500 mg Metoprolol Succinate (Toprol Xl) 25 mg PO BID [facility] Last Admin: 11/02/16 09:58 Dose: 25 mg Mupirocin (Bactroban Ointment) 0 gm TOP BID [facility] Last Admin: 11/02/16 09:59 Dose: 1 applic Tramadol HCl (Ultram) 50 mg PO TID PRN PRN Reason: Pain, moderate (4-7) Last Admin: 11/01/16 13:45 Dose: 50 mg - Labs Labs: 11/01/16 08:47 11/01/16 08:47 - Head Exam Head Exam: ATRAUMATIC - Eye Exam Eye Exam: Normal appearance - ENT Exam ENT Exam: Mucous Membranes Dry - Respiratory Exam Respiratory Exam: NORMAL BREATHING PATTERN - Cardiovascular Exam Cardiovascular Exam: +S1, +S2 - GI/Abdominal Exam GI & Abdominal Exam: Normal Bowel Sounds Assessment and Plan (1) Anemia Status: Acute (2) Thrombocytopenia Status: Acute (3) CLL (chronic lymphocytic leukemia) Status: Acute
[2016-11-02 11:56] LABS: BASO % 0.3 % (0.0-2.0); EOS % 0.6 % (0.0-4.0); HEMATOCRIT 31.5 % (35.0-51.0); LYMPH # 1.8 K/uL (1.0-4.3); LYMPH % 59.7 % (20.0-40.0); MEAN CELL VOLUME 98.1 fL (80.0-94.0); MEAN CORPUSCULAR HEMOGLOBIN 32.4 pg (27.0-31.0); MEAN PLATELET VOLUME 8.3 fL (7.2-11.7); MONO # 0.3 K/uL (0.0-0.8); MONO % 9.6 % (0.0-10.0); NRBC % 0.1 % (0.0-2.0)
[2016-11-02 12:15] LABS: CHLORIDE 103 mmol/L (98-107)
[2016-11-02 12:16] LABS: POTASSIUM 3.9 mmol/L (3.6-5.2); SODIUM 137 mmol/L (132-148)
[2016-11-02 12:18] LABS: ALB/GLOB RATIO 1.2 (1.0-2.1); ALKALINE PHOSPHATASE 65 U/L (38-126); ALT/SGPT 33 U/L (21-72); AST/SGOT 35 U/L (17-59); BILIRUBIN,TOTAL 0.6 mg/dL (0.2-1.3); BLOOD UREA NITROGEN 15 mg/dL (9-20); CALCIUM 8.5 mg/dl (8.6-10.4); CARBON DIOXIDE 24 mmol/L (22-30); GFR AFRICAN-AMERICAN > 60; GLUCOSE,RANDOM 169 mg/dL (75-110); TOTAL PROTEIN 6.2 g/dL (6.3-8.3)
[2016-11-02 12:19] LABS: MAGNESIUM 2.5 mg/dL (1.6-2.3)
--- NOTE | 2016-11-02 14:30 | CP.PCM.PN ---
Subjective - Date & Time of Evaluation Date of Evaluation: 11/02/16 Time of Evaluation: 14:28 - Subjective Subjective: Alert; in NAD Rash better as per patient Remains on same IV antimicrobials Na better at 137- better with IV saline Objective - Vital Signs/Intake and Output Vital Signs (last 24 hours): Temp Pulse Resp BP Pulse Ox 97.9 F 81 20 107/70 97 11/02/16 08:00 11/02/16 08:00 11/02/16 08:00 11/02/16 08:00 11/02/16 08:00 - Medications Medications: Current Medications Acetaminophen (Tylenol 325mg Tab) 650 mg PO Q6 PRN PRN Reason: Pain, Mild (1-3), fever Last Admin: 10/30/16 16:27 Dose: 650 mg Gabapentin (Neurontin) 300 mg PO TID [facility] Last Admin: 11/02/16 13:03 Dose: 300 mg Gemfibrozil (Lopid) 600 mg PO BID [facility] Last Admin: 11/02/16 09:58 Dose: 600 mg Acyclovir 650 mg/ Sodium (Chloride) 100 mls @ 100 mls/hr IV Q8H [facility] Last Admin: 11/02/16 13:03 Dose: 100 mls/hr Sodium Chloride (Sodium Chloride 0.9%) 1,000 mls @ 70 mls/hr IV .[id number] [facility] Last Admin: 11/02/16 10:00 Dose: Not Given Cefepime HCl 2 gm/ Sodium (Chloride) 100 mls @ 100 mls/hr IVPB Q8H [facility] Last Admin: 11/02/16 09:58 Dose: 100 mls/hr Insulin Aspart (Novolog) 0 unit SC TIDAC [facility] PRN Reason: Protocol Last Admin: 11/02/16 13:03 Dose: 2 unit Levothyroxine Sodium (Synthroid) 150 mcg PO DAILY@0630 [facility] Last Admin: 11/02/16 05:50 Dose: 150 mcg Metformin HCl (Glucophage) 500 mg PO BID [facility] Last Admin: 11/02/16 09:58 Dose: 500 mg Metoprolol Succinate (Toprol Xl) 25 mg PO BID [facility] Last Admin: 11/02/16 09:58 Dose: 25 mg Mupirocin (Bactroban Ointment) 0 gm TOP BID [facility] Last Admin: 11/02/16 09:59 Dose: 1 applic Tramadol HCl (Ultram) 50 mg PO TID PRN PRN Reason: Pain, moderate (4-7) Last Admin: 11/01/16 13:45 Dose: 50 mg - Labs Labs: 11/02/16 11:41 11/02/16 11:41 - Constitutional Appears: No Acute Distress, Chronically Ill - Head Exam Head Exam: ATRAUMATIC, NORMAL INSPECTION - Eye Exam Eye Exam: EOMI, Normal appearance - Neck Exam Neck Exam: Normal Inspection. absent: Tenderness - Respiratory Exam Respiratory Exam: Clear to Ausculation Bilateral, NORMAL BREATHING PATTERN - Cardiovascular Exam Cardiovascular Exam: REGULAR RHYTHM, +S1 - GI/Abdominal Exam GI & Abdominal Exam: Soft. absent: Tenderness - Extremities Exam Extremities Exam: Normal Inspection. absent: Tenderness - Neurological Exam Neurological Exam: Awake, CN II-XII Intact - Skin Skin Exam: Dry, Warm Assessment and Plan (1) CLL (chronic lymphocytic leukemia) Status: Acute (2) Hyponatremia Status: Acute (3) Skin lesion Status: Acute (4) SIADH (syndrome of inappropriate ADH production) Status: Acute - Assessment and Plan (Free Text) Plan: Same IV saline Monitor jonah nagy
--- NOTE | 2016-11-03 00:04 | CP.PCM.PN ---
<Julita Smith - Last Filed: 11/03/16 03:04> Subjective - Date & Time of Evaluation Date of Evaluation: 11/03/16 Time of Evaluation: 01:00 - Subjective Subjective: PGY 1 Medicine Note- Dr. Dalton's service Patient seen and examined at bedside. Patient reports intermittently painful rash though controlled with pain medications. Patient is continuing to tolerate diet and ambulating. He denies subjective fevers and chills. He denies abdominal pain, nausea, vomiting, diarrhea, chest pain, SOB, headache, visual disturbances, dysuria and urinary frequency. Objective - Vital Signs/Intake and Output Vital Signs (last 24 hours): Temp Pulse Resp BP Pulse Ox 97.3 F L 88 20 133/86 98 11/02/16 15:00 11/02/16 15:00 11/02/16 15:00 11/02/16 15:00 11/02/16 15:00 Intake and Output: 11/02/16 11/03/16 18:59 06:59 Intake Total 580 1260 Balance 580 1260 - Medications Medications: Current Medications Acetaminophen (Tylenol 325mg Tab) 650 mg PO Q6 PRN PRN Reason: Pain, Mild (1-3), fever Last Admin: 10/30/16 16:27 Dose: 650 mg Gabapentin (Neurontin) 300 mg PO TID [facility] Last Admin: 11/02/16 17:31 Dose: 300 mg Gemfibrozil (Lopid) 600 mg PO BID [facility] Last Admin: 11/02/16 17:31 Dose: 600 mg Acyclovir 650 mg/ Sodium (Chloride) 100 mls @ 100 mls/hr IV Q8H [facility] Last Admin: 11/02/16 20:06 Dose: 100 mls/hr Sodium Chloride (Sodium Chloride 0.9%) 1,000 mls @ 70 mls/hr IV .[id number] [facility] Last Admin: 11/02/16 17:42 Dose: 70 mls/hr Cefepime HCl 2 gm/ Sodium (Chloride) 100 mls @ 100 mls/hr IVPB Q8H [facility] Last Admin: 11/02/16 23:48 Dose: 100 mls/hr Insulin Aspart (Novolog) 0 unit SC TIDAC [facility] PRN Reason: Protocol Last Admin: 11/02/16 18:16 Dose: Not Given Levothyroxine Sodium (Synthroid) 150 mcg PO DAILY@0630 [facility] Last Admin: 11/02/16 05:50 Dose: 150 mcg Metformin HCl (Glucophage) 500 mg PO BID [facility] Last Admin: 11/02/16 17:31 Dose: 500 mg Metoprolol Succinate (Toprol Xl) 25 mg PO BID [facility] Last Admin: 11/02/16 17:31 Dose: 25 mg Mupirocin (Bactroban Ointment) 0 gm TOP BID [facility] Last Admin: 11/02/16 17:34 Dose: 1 applic Tramadol HCl (Ultram) 50 mg PO TID PRN PRN Reason: Pain, moderate (4-7) Last Admin: 11/02/16 20:10 Dose: 50 mg - Labs Labs: 11/02/16 11:41 11/02/16 11:41 - Constitutional Appears: Non-toxic, No Acute Distress - Head Exam Head Exam: ATRAUMATIC, NORMAL INSPECTION - Eye Exam Eye Exam: EOMI, Normal appearance, PERRL Pupil Exam: NORMAL ACCOMODATION - ENT Exam ENT Exam: Mucous Membranes Moist - Neck Exam Neck Exam: Full ROM - Respiratory Exam Respiratory Exam: Clear to Ausculation Bilateral - Cardiovascular Exam Cardiovascular Exam: +S1, +S2 - GI/Abdominal Exam GI & Abdominal Exam: Soft, Normal Bowel Sounds - Extremities Exam Extremities Exam: Full ROM, Normal Capillary Refill, Tenderness - Neurological Exam Neurological Exam: Alert, Awake, CN II-XII Intact, Normal Gait, Oriented x3 - Psychiatric Exam Psychiatric exam: Normal Affect, Normal Mood - Skin Skin Exam: Dry, Rash, Vesicles, Warm. absent: Intact, Normal Color Additional comments: medial surface of right arm and forearm with darkened hyperpigmented purpuric grouped lesions. Assessment and Plan - Assessment and Plan (Free Text) Assessment: Painful Vesicular/Pustular Rash likely Disseminated Herpes Zoster No leukocytosis , afebrile Must also consider Herpes Simplex infection in light of immunocompromised state with history of CLL and on Imbruvica therapy Eczema Herpeticum lower on differential given lack of ulcerative lesions Continue Acyclovir 650 mg IV q8h. Will likely need IV Acyclovir until at least Saturday. Will monitor for possible resistance to anti-viral and should be started on foscarnet, vidarabine or cidofovir if resistance noted. Cefepime 2 gm IVPB Q8h added per ID to cover for possible secondary cellulitis. Continue topical mupirocen Continue Gabapentin 300 mg po TID to control pain. Ultram 50 mg po TID PRN also on for pain management. Will hold Imbruvica , discussed with Dr. Azevedo Infectious disease, Dr. Blunt, consulted and agrees with current management. Punch biopsy sent for direct fluorescent antigen (DFA) and immunohistochemistry (IHC) to confirm zoster. Follow-up pathology report. Herpes zoster IgM antibody <=0.90, negative however levels could be low for >12 months post infection. If acute infection suspected, consider obtaining new specimen and submit for both IgG and IgM testing in 2-3 weeks. Herpes simplex 1/2 pcr - not detected Herpes simplex virus culture - negative Porphyria Cutanea Tarda, Pseudoporphyria and Dermatitis Herpetiformis low on differential diagnosis Iron studies show low iron is low which is not suggestive of PCT. Random porphobilinogen not performed as urine specimen not protected from light IgA 70.5. Endomysial scr IgA negative, tissue transglutaminase AB pending Punch Biopsy B to have DIF performed. Tylenol 650 mg po q6 PRN for fever Sepsis Initially, though resolved Afebrile Procalcitonin 0.11 Lactic acid 2.5 Band Neutrophils % 16 No leukocytosis, Neuts % 44.2 Pyrexia Resolved sepsis work up repeat blood cx x2, urinalysis, urine cx, cxr ordered procalcitonin and lactic acid ordered will follow-up to ensure no other concomitant source of infection Hyponatremia likely SIADH Resolved Continue Normal Saline IV @ 70cc/hr Urine sodium random 50, urine osmolality 501, serum osmolality 275, urine uric acid 38.2 Lisinopril- held Nephrology, Dr. Magallanes, consulted. F/U Monitor Chronic Lymphocytic Leukemia Business Rules Developer/Oncologist, Dr. Azevedo, consulted Imbruvica 140 mg 3 capsules po daily - held Pancytopenia likely secondry to CLL and Imbruvica Dr. Azevedo consulted. Notes thrombocytopenia possibly exacerbated due to acute illness/meds Diabetes Mellitus Type II RISS Continue home medication Metformin 500 mg po BID Accuchecks Monitor Hypertension Hold home medications Lisinopril 2.5 mg po daily due to hyponatremia Continue Metoprolol 25 mg po BID Monitor Hyperlipidemia Continue home medication Gemfibrozil 600 mg po BID Prophylaxis SCD Heart Healthy Diet Chemical VTE CI due to thrombocytopenia <Joe Dalton H - Last Filed: 11/03/16 11:30> Objective - Vital Signs/Intake and Output Vital Signs (last 24 hours): Temp Pulse Resp BP Pulse Ox 97.4 F L 86 20 127/78 96 11/03/16 07:00 11/03/16 07:00 11/03/16 07:00 11/03/16 07:00 11/03/16 07:00 Intake and Output: 11/03/16 11/03/16 06:59 18:59 Intake Total 2260 Balance 2260 - Medications Medications: Current Medications Acetaminophen (Tylenol 325mg Tab) 650 mg PO Q6 PRN PRN Reason: Pain, Mild (1-3), fever Last Admin: 10/30/16 16:27 Dose: 650 mg Gabapentin (Neurontin) 300 mg PO TID [facility] Last Admin: 11/03/16 10:01 Dose: 300 mg Gemfibrozil (Lopid) 600 mg PO BID [facility] Last Admin: 11/03/16 10:01 Dose: 600 mg Acyclovir 650 mg/ Sodium (Chloride) 100 mls @ 100 mls/hr IV Q8H [facility] Last Admin: 11/03/16 04:20 Dose: 100 mls/hr Sodium Chloride (Sodium Chloride 0.9%) 1,000 mls @ 70 mls/hr IV .[id number] [facility] Last Admin: 11/03/16 01:04 Dose: Not Given Cefepime HCl 2 gm/ Sodium (Chloride) 100 mls @ 100 mls/hr IVPB Q8H [facility] Last Admin: 11/03/16 08:18 Dose: 100 mls/hr Insulin Aspart (Novolog) 0 unit SC TIDAC [facility] PRN Reason: Protocol Last Admin: 11/03/16 08:34 Dose: Not Given Levothyroxine Sodium (Synthroid) 150 mcg PO DAILY@0630 [facility] Last Admin: 11/03/16 05:40 Dose: 150 mcg Metformin HCl (Glucophage) 500 mg PO BID [facility] Last Admin: 11/03/16 10:01 Dose: 500 mg Metoprolol Succinate (Toprol Xl) 25 mg PO BID [facility] Last Admin: 11/03/16 10:01 Dose: 25 mg Mupirocin (Bactroban Ointment) 0 gm TOP BID [facility] Last Admin: 11/03/16 10:01 Dose: 1 applic Tramadol HCl (Ultram) 50 mg PO TID PRN PRN Reason: Pain, moderate (4-7) Last Admin: 11/02/16 20:10 Dose: 50 mg - Labs Labs: 11/02/16 11:41 11/02/16 11:41 Attending/Attestation - Attestation I have personally seen and examined this patient.: Yes I have fully participated in the care of the patient.: Yes I have reviewed all pertinent clinical information, including history, physical exam and plan: Yes Notes (Text): Medical Attending: Patient was seen and examined by me. Agree with the above note by the resident. The patient did not report any acute events overnight The biopsy results came back confirming this is a zoster outbreak. The skin lesions appear sawdust drier today than before and he denies pain At this time still on the IV acyclovir as well as the IV cefepime. Joe Dalton
[2016-11-03] MEDS: Sodium Chloride 0.9% 1,000 ML IV SCH ×2 (01:04→13:58)
[2016-11-03 03:58] LABS: PORPH TOTAL VOLUME 3000 mL
[2016-11-03] MEDS: Levothyroxine 150 MCG TAB PO SCH (05:40)
[2016-11-03] MEDS: Cefepime 2 GM in Sodium Chloride 0.9% 100 ML IVPB SCH ×3 (08:18→23:21)
[2016-11-03] MEDS: (Novolog) Insulin Aspart, Recombinant 100 u/ml 10 ml vial SC SCH ×3 (08:34→22:41)
[2016-11-03] MEDS: Metoprolol Succinate 25 mg XL Tab PO SCH ×2 (10:01→17:26)
[2016-11-03 11:34] LABS: BASO % 0.4 % (0.0-2.0); EOS % 0.7 % (0.0-4.0); HEMATOCRIT 32.1 % (35.0-51.0); LYMPH # 1.7 K/uL (1.0-4.3); MEAN CELL VOLUME 97.9 fL (80.0-94.0); MEAN CORPUSCULAR HEMOGLOBIN 32.2 pg (27.0-31.0); MEAN CORPUSCULAR HGB CONC 32.9 g/dL (33.0-37.0); MEAN PLATELET VOLUME 8.5 fL (7.2-11.7); MONO # 0.3 K/uL (0.0-0.8); MONO % 10.3 % (0.0-10.0); NRBC % 0.1 % (0.0-2.0); RED CELL DISTRIBUTION WIDTH 14.1 % (11.5-14.5)
[2016-11-03 11:46] LABS: CHLORIDE 100 mmol/L (98-107)
[2016-11-03 11:47] LABS: SODIUM 135 mmol/L (132-148)
[2016-11-03 11:49] LABS: GFR AFRICAN-AMERICAN > 60
[2016-11-03 11:50] LABS: ALB/GLOB RATIO 1.4 (1.0-2.1); ALKALINE PHOSPHATASE 64 U/L (38-126); ALT/SGPT 31 U/L (21-72); AST/SGOT 28 U/L (17-59); BILIRUBIN,TOTAL 0.7 mg/dL (0.2-1.3); BLOOD UREA NITROGEN 14 mg/dL (9-20); CARBON DIOXIDE 24 mmol/L (22-30); GLUCOSE,RANDOM 151 mg/dL (75-110); PHOSPHOROUS 3.1 mg/dL (2.5-4.5)
[2016-11-03 11:51] LABS: CALCIUM 8.5 mg/dl (8.6-10.4); MAGNESIUM 2.3 mg/dL (1.6-2.3)
[2016-11-04] MEDS: Sodium Chloride 0.9% 1,000 ML IV SCH (04:16)
[2016-11-04] MEDS: Levothyroxine 150 MCG TAB PO SCH (05:38)
--- NOTE | 2016-11-04 08:48 | CP.PCM.PN ---
Subjective - Date & Time of Evaluation Date of Evaluation: 11/04/16 Time of Evaluation: 09:00 Objective - Vital Signs/Intake and Output Vital Signs (last 24 hours): Temp Pulse Resp BP Pulse Ox 97.9 F 95 H 20 143/84 97 11/03/16 23:25 11/03/16 23:25 11/03/16 23:25 11/03/16 23:25 11/03/16 23:25 Intake and Output: 11/04/16 11/04/16 06:59 18:59 Intake Total 1000 Balance 1000 - Medications Medications: Current Medications Acetaminophen (Tylenol 325mg Tab) 650 mg PO Q6 PRN PRN Reason: Pain, Mild (1-3), fever Last Admin: 10/30/16 16:27 Dose: 650 mg Gabapentin (Neurontin) 300 mg PO TID [facility] Last Admin: 11/03/16 17:26 Dose: 300 mg Gemfibrozil (Lopid) 600 mg PO BID [facility] Last Admin: 11/03/16 17:26 Dose: 600 mg Acyclovir 650 mg/ Sodium (Chloride) 100 mls @ 100 mls/hr IV Q8H [facility] Last Admin: 11/04/16 04:15 Dose: 100 mls/hr Sodium Chloride (Sodium Chloride 0.9%) 1,000 mls @ 70 mls/hr IV .[id number] [facility] Last Admin: 11/04/16 04:16 Dose: 70 mls/hr Cefepime HCl 2 gm/ Sodium (Chloride) 100 mls @ 100 mls/hr IVPB Q8H [facility] Last Admin: 11/03/16 23:21 Dose: 100 mls/hr Insulin Aspart (Novolog) 0 unit SC TIDAC [facility] PRN Reason: Protocol Last Admin: 11/03/16 22:41 Dose: Not Given Levothyroxine Sodium (Synthroid) 150 mcg PO DAILY@0630 [facility] Last Admin: 11/04/16 05:38 Dose: 150 mcg Metformin HCl (Glucophage) 500 mg PO BID [facility] Last Admin: 11/03/16 17:26 Dose: 500 mg Metoprolol Succinate (Toprol Xl) 25 mg PO BID [facility] Last Admin: 11/03/16 17:26 Dose: 25 mg Mupirocin (Bactroban Ointment) 0 gm TOP BID [facility] Last Admin: 11/03/16 17:26 Dose: 1 applic Tramadol HCl (Ultram) 50 mg PO TID PRN PRN Reason: Pain, moderate (4-7) Last Admin: 11/03/16 22:29 Dose: 50 mg - Labs Labs: 11/03/16 11:26 11/03/16 11:26 - Constitutional Appears: Non-toxic, No Acute Distress - Head Exam Head Exam: ATRAUMATIC, NORMAL INSPECTION, NORMOCEPHALIC - Eye Exam Eye Exam: EOMI, Normal appearance Pupil Exam: NORMAL ACCOMODATION - Neck Exam Neck Exam: Normal Inspection - Respiratory Exam Respiratory Exam: Clear to Ausculation Bilateral, NORMAL BREATHING PATTERN. absent: Decreased Breath Sounds, Rhonchi, Wheezes - Cardiovascular Exam Cardiovascular Exam: REGULAR RHYTHM, +S1, +S2 - GI/Abdominal Exam GI & Abdominal Exam: Soft, Normal Bowel Sounds. absent: Tenderness, Diminished Bowel Sounds, Hernia, Hypoactive Bowel Sounds - Extremities Exam Extremities Exam: Normal Capillary Refill Additional comments: medial surface of right arm and forearm with darkened hyperpigmented purpuric grouped lesions. - Neurological Exam Neurological Exam: Alert, Awake, Oriented x3 - Psychiatric Exam Psychiatric exam: Normal Affect, Normal Mood Assessment and Plan - Assessment and Plan (Free Text) Assessment: Varicella ZOster No leukocytosis , afebrile Must also consider Herpes Simplex infection in light of immunocompromised state with history of CLL and on Imbruvica therapy Eczema Herpeticum lower on differential given lack of ulcerative lesions Continue Acyclovir 650 mg IV q8h. Will likely need IV Acyclovir until at least Saturday. Will monitor for possible resistance to anti-viral and should be started on foscarnet, vidarabine or cidofovir if resistance noted. Cefepime 2 gm IVPB Q8h added per ID to cover for possible secondary cellulitis. Continue topical mupirocen Continue Gabapentin 300 mg po TID to control pain. Ultram 50 mg po TID PRN also on for pain management. Will hold Imbruvica , discussed with Dr. Azevedo Infectious disease, Dr. Blunt, consulted and agrees with current management. Punch biopsy sent for direct fluorescent antigen (DFA) and immunohistochemistry (IHC)- Herpes virus infection. Favor VZV Herpes zoster IgM antibody <=0.90, negative however levels could be low for >12 months post infection. If acute infection suspected, consider obtaining new specimen and submit for both IgG and IgM testing in 2-3 weeks. Herpes simplex 1/2 pcr - not detected Herpes simplex virus culture - negative Porphyria Cutanea Tarda, Pseudoporphyria and Dermatitis Herpetiformis low on differential diagnosis Iron studies show low iron is low which is not suggestive of PCT. Random porphobilinogen not performed as urine specimen not protected from light IgA 70.5. Endomysial scr IgA negative, tissue transglutaminase AB pending Punch Biopsy B to have DIF performed. Tylenol 650 mg po q6 PRN for fever Sepsis Initially, though resolved Afebrile Procalcitonin 0.11 Lactic acid 2.5 Band Neutrophils % 16 No leukocytosis, Neuts % 44.2 Pyrexia Resolved sepsis work up repeat blood cx x2, urinalysis, urine cx, cxr ordered procalcitonin and lactic acid ordered will follow-up to ensure no other concomitant source of infection Hyponatremia likely SIADH Resolved Continue Normal Saline IV @ 70cc/hr Urine sodium random 50, urine osmolality 501, serum osmolality 275, urine uric acid 38.2 Lisinopril- held Nephrology, Dr. Magallanes, consulted. F/U Monitor Chronic Lymphocytic Leukemia Medical Educator/Oncologist, Dr. Azevedo, consulted Imbruvica 140 mg 3 capsules po daily - held Pancytopenia likely secondry to CLL and Imbruvica Dr. Azevedo consulted. Notes thrombocytopenia possibly exacerbated due to acute illness/meds Diabetes Mellitus Type II RISS Continue home medication Metformin 500 mg po BID Accuchecks Monitor Hypertension Hold home medications Lisinopril 2.5 mg po daily due to hyponatremia Continue Metoprolol 25 mg po BID Monitor Hyperlipidemia Continue home medication Gemfibrozil 600 mg po BID Prophylaxis SCD Heart Healthy Diet Chemical VTE CI due to thrombocytopenia
[2016-11-04] MEDS: (Novolog) Insulin Aspart, Recombinant 100 u/ml 10 ml vial SC SCH ×3 (09:12→18:19)
--- NOTE | 2016-11-04 09:37 | CP.PCM.PN ---
Subjective - Date & Time of Evaluation Date of Evaluation: 11/04/16 Time of Evaluation: 09:15 - Subjective Subjective: Patient was seen and examined by me We went over the biopsy results which showed Herpes Zoster for which the patient is already on IV acylovir. The arm today looks label drier and the lesions macules are not as draining as before. He reports mild pain today. No fevers now. Objective - Vital Signs/Intake and Output Vital Signs (last 24 hours): Temp Pulse Resp BP Pulse Ox 97.5 F L 85 22 130/83 97 11/04/16 07:55 11/04/16 07:55 11/04/16 07:55 11/04/16 07:55 11/04/16 07:55 Intake and Output: 11/04/16 11/04/16 06:59 18:59 Intake Total 1000 Balance 1000 - Medications Medications: Current Medications Acetaminophen (Tylenol 325mg Tab) 650 mg PO Q6 PRN PRN Reason: Pain, Mild (1-3), fever Last Admin: 10/30/16 16:27 Dose: 650 mg Gabapentin (Neurontin) 300 mg PO TID [facility] Last Admin: 11/03/16 17:26 Dose: 300 mg Gemfibrozil (Lopid) 600 mg PO BID [facility] Last Admin: 11/03/16 17:26 Dose: 600 mg Acyclovir 650 mg/ Sodium (Chloride) 100 mls @ 100 mls/hr IV Q8H [facility] Last Admin: 11/04/16 04:15 Dose: 100 mls/hr Sodium Chloride (Sodium Chloride 0.9%) 1,000 mls @ 70 mls/hr IV .[id number] [facility] Last Admin: 11/04/16 04:16 Dose: 70 mls/hr Cefepime HCl 2 gm/ Sodium (Chloride) 100 mls @ 100 mls/hr IVPB Q8H [facility] Last Admin: 11/03/16 23:21 Dose: 100 mls/hr Insulin Aspart (Novolog) 0 unit SC TIDAC [facility] PRN Reason: Protocol Last Admin: 11/04/16 09:12 Dose: Not Given Levothyroxine Sodium (Synthroid) 150 mcg PO DAILY@0630 [facility] Last Admin: 11/04/16 05:38 Dose: 150 mcg Metformin HCl (Glucophage) 500 mg PO BID [facility] Last Admin: 11/03/16 17:26 Dose: 500 mg Metoprolol Succinate (Toprol Xl) 25 mg PO BID [facility] Last Admin: 11/03/16 17: Dose: 25 mg Mupirocin (Bactroban Ointment) 0 gm TOP BID [facility] Last Admin: 11/03/16 17: Dose: 1 applic Tramadol HCl (Ultram) 50 mg PO TID PRN PRN Reason: Pain, moderate (4-7) Last Admin: 11/03/16 22:29 Dose: 50 mg - Labs Labs: 11/03/16 11:26 11/03/16 11:26 Assessment and Plan - Assessment and Plan (Free Text) Assessment: Herpes Zoster outbreak with Painful Vesicular/Pustular Rash 11/04: The biopsy came back and is + for Zoster. He is already on IV Acylovir. Must also consider Herpes Simplex infection in light of immunocompromised state with history of CLL and on Imbruvica therapy Eczema Herpeticum lower on differential given lack of ulcerative lesions Continue Acyclovir 650 mg IV q8h. Will likely need IV Acyclovir until at least Saturday. Will monitor for possible resistance to anti-viral and should be started on foscarnet, vidarabine or cidofovir if resistance noted. Cefepime 2 gm IVPB Q8h added per ID to cover for possible secondary cellulitis. Continue topical mupirocen Continue Gabapentin 300 mg po TID to control pain. Ultram 50 mg po TID PRN also on for pain management. Will hold Imbruvica , discussed with Dr. Azevedo Infectious disease, Dr. Blunt, consulted and agrees with current management. Punch biopsy sent for direct fluorescent antigen (DFA) and immunohistochemistry (IHC) to confirm zoster. Follow-up pathology report. Herpes zoster IgM antibody <=0.90, negative however levels could be low for >12 months post infection. If acute infection suspected, consider obtaining new specimen and submit for both IgG and IgM testing in 2-3 weeks. Herpes simplex 1/2 pcr - not detected Herpes simplex virus culture - negative Porphyria Cutanea Tarda, Pseudoporphyria and Dermatitis Herpetiformis low on differential diagnosis Iron studies show low iron is low which is not suggestive of PCT. Random porphobilinogen not performed as urine specimen not protected from light IgA 70.5. Endomysial scr IgA negative, tissue transglutaminase AB pending Punch Biopsy B to have DIF performed. Tylenol 650 mg po q6 PRN for fever Sepsis / Pyrexia 11/04: Doing well, no WBC elevation. Fevers are resolved. Blood cultures negative. On IV Cefepime Initially, though resolved Afebrile Procalcitonin 0.11 Lactic acid 2.5 Band Neutrophils % 16 No leukocytosis, Neuts % 44.2 Hyponatremia likely SIADH Resolved Continue Normal Saline IV @ 70cc/hr Urine sodium random 50, urine osmolality 501, serum osmolality 275, urine uric acid 38.2 Lisinopril- held Nephrology, Dr. Magallanes, consulted. F/U Monitor Chronic Lymphocytic Leukemia Economics Teacher/Oncologist, Dr. Azevedo, consulted Imbruvica 140 mg 3 capsules po daily - held Pancytopenia likely secondry to CLL and Imbruvica Dr. Azevedo consulted. Notes thrombocytopenia possibly exacerbated due to acute illness/meds Diabetes Mellitus Type II RISS Continue home medication Metformin 500 mg po BID Accuchecks Monitor Hypertension Hold home medications Lisinopril 2.5 mg po daily due to hyponatremia Continue Metoprolol 25 mg po BID Monitor Hyperlipidemia Continue home medication Gemfibrozil 600 mg po BID Prophylaxis SCD Heart Healthy Diet Chemical VTE CI due to thrombocytopenia
[2016-11-04] MEDS: Cefepime 2 GM in Sodium Chloride 0.9% 100 ML IVPB SCH ×2 (10:38→18:27)
[2016-11-04] MEDS: Metoprolol Succinate 25 mg XL Tab PO SCH ×2 (10:38→18:26)
[2016-11-05] MEDS: Levothyroxine 150 MCG TAB PO SCH (05:44)
[2016-11-05 07:38] LABS: CHLORIDE 102 mmol/L (98-107)
[2016-11-05 07:39] LABS: POTASSIUM 4.5 mmol/L (3.6-5.2); SODIUM 137 mmol/L (132-148)
[2016-11-05 07:41] LABS: ALB/GLOB RATIO 1.5 (1.0-2.1); AST/SGOT 46 U/L (17-59); BILIRUBIN,TOTAL 0.7 mg/dL (0.2-1.3); BLOOD UREA NITROGEN 15 mg/dL (9-20); CARBON DIOXIDE 26 mmol/L (22-30); GFR AFRICAN-AMERICAN > 60; TOTAL PROTEIN 6.4 g/dL (6.3-8.3)
[2016-11-05 07:42] LABS: ALKALINE PHOSPHATASE 74 U/L (38-126); ALT/SGPT 39 U/L (21-72); GLUCOSE,RANDOM 121 mg/dL (75-110); PHOSPHOROUS 3.8 mg/dL (2.5-4.5)
[2016-11-05 07:43] LABS: MAGNESIUM 2.4 mg/dL (1.6-2.3)
[2016-11-05 07:46] LABS: MEAN CELL VOLUME 97.7 fL (80.0-94.0); MEAN CORPUSCULAR HEMOGLOBIN 32.5 pg (27.0-31.0); MEAN CORPUSCULAR HGB CONC 33.3 g/dL (33.0-37.0)
[2016-11-05 08:01] LABS: BASO % 0.3 % (0.0-2.0); EOS % 0.7 % (0.0-4.0); HEMATOCRIT 33.4 % (35.0-51.0); LYMPH # 2.9 K/uL (1.0-4.3); LYMPH % 55.6 % (20.0-40.0); MEAN PLATELET VOLUME 8.6 fL (7.2-11.7); MONO # 0.5 K/uL (0.0-0.8); MONO % 10.1 % (0.0-10.0)
[2016-11-05] MEDS: (Novolog) Insulin Aspart, Recombinant 100 u/ml 10 ml vial SC SCH ×3 (08:02→18:06)
[2016-11-05 08:03] LABS: NRBC % 0.2 % (0.0-2.0); WHITE BLOOD COUNT 5.2 K/uL (4.8-10.8)
[2016-11-05] MEDS: Metoprolol Succinate 25 mg XL Tab PO SCH ×2 (10:07→18:45)
--- NOTE | 2016-11-05 15:47 | CP.PCM.PN ---
<Kacie Ivey - Last Filed: 11/05/16 20:18> Subjective - Date & Time of Evaluation Date of Evaluation: 11/05/16 Time of Evaluation: 15:40 - Subjective Subjective: Medicine Progress note- Dr. Pineda Service: Patient was seen and examined. He appeared in no acute distress, but reports having mild discomfort in his right extremity. He states he believes his lesions have improved. His pain in his arm has remained the same. He has had daily bowel movements. He denies having SOB, chest pain, palpitations, abdominal pain, nausea, and vomiting. Objective - Vital Signs/Intake and Output Vital Signs (last 24 hours): Temp Pulse Resp BP Pulse Ox 97.9 F 81 20 139/84 95 11/05/16 08:39 11/05/16 08:39 11/05/16 08:39 11/05/16 08:39 11/05/16 08:39 - Medications Medications: Current Medications Acetaminophen (Tylenol 325mg Tab) 650 mg PO Q6 PRN PRN Reason: Pain, Mild (1-3), fever Last Admin: 10/30/16 16:27 Dose: 650 mg Acyclovir (Zovirax) 800 mg PO TID [facility] Stop: 11/16/16 10:01 Gabapentin (Neurontin) 300 mg PO TID [facility] Last Admin: 11/05/16 13:38 Dose: 300 mg Gemfibrozil (Lopid) 600 mg PO BID [facility] Last Admin: 11/05/16 10:08 Dose: 600 mg Acyclovir 650 mg/ Sodium (Chloride) 100 mls @ 100 mls/hr IV Q8H [facility] Last Admin: 11/05/16 13:38 Dose: 100 mls/hr Insulin Aspart (Novolog) 0 unit SC TIDAC [facility] PRN Reason: Protocol Last Admin: 11/05/16 11:30 Dose: Not Given Levothyroxine Sodium (Synthroid) 150 mcg PO DAILY@0630 [facility] Last Admin: 11/05/16 05:44 Dose: 150 mcg Metformin HCl (Glucophage) 500 mg PO BID [facility] Last Admin: 11/05/16 10:07 Dose: 500 mg Metoprolol Succinate (Toprol Xl) 25 mg PO BID [facility] Last Admin: 11/05/16 10:07 Dose: 25 mg Mupirocin (Bactroban Ointment) 0 gm TOP BID [facility] Last Admin: 11/05/16 10:09 Dose: 1 applic Tramadol HCl (Ultram) 50 mg PO TID PRN PRN Reason: Pain, moderate (4-7) Last Admin: 11/05/16 10:07 Dose: 50 mg - Labs Labs: 11/05/16 07:19 11/05/16 07:19 - Constitutional Appears: No Acute Distress - Head Exam Head Exam: ATRAUMATIC, NORMAL INSPECTION - Eye Exam Eye Exam: EOMI, Normal appearance - ENT Exam ENT Exam: Mucous Membranes Moist - Neck Exam Neck Exam: Full ROM, Normal Inspection - Respiratory Exam Respiratory Exam: Clear to Ausculation Bilateral, NORMAL BREATHING PATTERN - Cardiovascular Exam Cardiovascular Exam: REGULAR RHYTHM - GI/Abdominal Exam GI & Abdominal Exam: Normal Bowel Sounds - Extremities Exam Extremities Exam: absent: Calf Tenderness, Pedal Edema - Neurological Exam Neurological Exam: Alert, Awake, Oriented x3 - Psychiatric Exam Psychiatric exam: Normal Affect, Normal Mood - Skin Skin Exam: Rash, Vesicles Additional comments: Right upper extremity; small patch on right shoulder Assessment and Plan (1) Herpes zoster Assessment & Plan: ID consult placed- Dr. Blunt- help appreciated. Biopsy: positive for Herpes Zoster Herpes simplex 1/2 pcr - not detected Herpes simplex virus culture - negative IgA 70.5. Endomysial scr IgA negative, tissue transglutaminase AB pending Punch Biopsy B to have DIF performed. Treated with Acyclovir IV for [address] Blunt, will discontinue IV Acyclovir 11/06/16, and start Acylcovir 800mg TID PO. If tolerates well, can consider discharging. Patient received Cefepime 2 gm IVPB Q8h added per ID to cover for possible secondary cellulitis; discontinued 11/04. Continue topical mupirocin Continue Gabapentin 300 mg po TID to control pain. Ultram 50 mg po TID PRN also on for pain management. Will hold Imbruvica as per Dr. Azevedo Tylenol 650 mg po q6 PRN for fever Status: Acute (2) Sepsis Assessment & Plan: 11/05: Doing well, no WBC elevation. Fevers are resolved. Blood cultures negative x 5days on 10/26/16 and 10/30/16 Afebrile Status: Acute (3) Diabetes mellitus Assessment & Plan: RISS Continue home medication Metformin 500 mg po BID Accuchecks Monitor Status: Acute (4) Hypertension Assessment & Plan: Continue Metoprolol 25mg PO BID hold home medication Lisinopril 2.5mg PO Daily due to hyponatremia Status: Acute (5) Hyponatremia Assessment & Plan: likely SIADH. Resolved now. Nephrology, Dr. Magallanes, consult placed- help appreciated; as per Dr. Magallanes, continue IV saline and monitor closely. Stop IV fluids Urine sodium random 50,serum osmolality 275, urine uric acid 38.2 urine osmolality decreased from 501 (10/30) to 307 (11/01) Lisinopril- held Status: Acute (6) CLL (chronic lymphocytic leukemia) Assessment & Plan: Ethnographic Materials Conservator/Oncologist, Dr. Azevedo, consulted Will hold Imbruvica as per Dr. Azevedo Imbruvica 140 mg 3 capsules po daily - held Status: Acute (7) Pancytopenia Assessment & Plan: likely secondry to CLL on Imbruvica Dr. Azevedo consulted. * Notes thrombocytopenia possibly exacerbated due to acute illness/meds * Imbruvica on hold as per Dr. Azevedo Status: Acute (8) Hyperlipidemia Assessment & Plan: Continue home medication Gemfibrozil 600 mg po BID Status: Acute (9) Hypothyroid Assessment & Plan: Continue home medication Levothyroxine 0.1mg PO Daily Status: Acute (10) Prophylactic measure Assessment & Plan: SCD Heart Healthy Diet Pepcid 20mg BID PO Chemical VTE CI due to thrombocytopenia Status: Acute <EdwinFrancisco Javier M - Last Filed: 11/06/16 07:40> Objective - Vital Signs/Intake and Output Vital Signs (last 24 hours): Temp Pulse Resp BP Pulse Ox 97.5 F L 86 18 136/85 98 11/05/16 23:46 11/05/16 23:46 11/05/16 23:46 11/05/16 23:46 11/05/16 23:46 - Medications Medications: Current Medications Acetaminophen (Tylenol 325mg Tab) 650 mg PO Q6 PRN PRN Reason: Pain, Mild (1-3), fever Last Admin: 10/30/16 16:27 Dose: 650 mg Acyclovir (Zovirax) 800 mg PO TID [facility] Stop: 11/16/16 10:01 Famotidine (Pepcid) 20 mg PO BID [facility] Gabapentin (Neurontin) 300 mg PO TID [facility] Last Admin: 11/05/16 18:45 Dose: 300 mg Gemfibrozil (Lopid) 600 mg PO BID [facility] Last Admin: 11/05/16 18:46 Dose: 600 mg Insulin Aspart (Novolog) 0 unit SC TIDAC [facility] PRN Reason: Protocol Last Admin: 11/06/16 07:28 Dose: Not Given Levothyroxine Sodium (Synthroid) 150 mcg PO DAILY@0630 [facility] Last Admin: 11/06/16 05:54 Dose: 150 mcg Metformin HCl (Glucophage) 500 mg PO BID [facility] Last Admin: 11/05/16 18:45 Dose: 500 mg Metoprolol Succinate (Toprol Xl) 25 mg PO BID [facility] Last Admin: 11/05/16 18:45 Dose: 25 mg Mupirocin (Bactroban Ointment) 0 gm TOP BID [facility] Last Admin: 11/05/16 18:45 Dose: 1 applic Tramadol HCl (Ultram) 50 mg PO TID PRN PRN Reason: Pain, moderate (4-7) Last Admin: 11/06/16 05:55 Dose: 50 mg - Labs Labs: 11/05/16 07:19 11/05/16 07:19 Attending/Attestation - Attestation I have personally seen and examined this patient.: Yes I have fully participated in the care of the patient.: Yes I have reviewed all pertinent clinical information, including history, physical exam and plan: Yes Notes (Text): 11/06/16 07:39 Patient was seen and examined at bedside with the resident. Patient still has significant lesions on the right arm but they're drying up now. He continues to be on IVs acyclovir. We will switch to oral acyclovir as per the recommendations of ID. I discussed the plan of care with the resident and I agree with the assessment and plan by the resident.
--- NOTE | 2016-11-05 22:20 | CP.PCM.PN ---
Subjective - Date & Time of Evaluation Date of Evaluation: 11/05/16 Time of Evaluation: 20:00 - Subjective Subjective: Arm lesions drying up. Objective - Vital Signs/Intake and Output Vital Signs (last 24 hours): Temp Pulse Resp BP Pulse Ox 97.3 F L 85 20 127/86 98 11/05/16 15:35 11/05/16 15:35 11/05/16 15:35 11/05/16 15:35 11/05/16 15:35 Intake and Output: 11/05/16 11/06/16 18:59 06:59 Intake Total 560 Balance 560 - Medications Medications: Current Medications Acetaminophen (Tylenol 325mg Tab) 650 mg PO Q6 PRN PRN Reason: Pain, Mild (1-3), fever Last Admin: 10/30/16 16:27 Dose: 650 mg Acyclovir (Zovirax) 800 mg PO TID [facility] Stop: 11/16/16 10:01 Famotidine (Pepcid) 20 mg PO BID [facility] Gabapentin (Neurontin) 300 mg PO TID [facility] Last Admin: 11/05/16 18:45 Dose: 300 mg Gemfibrozil (Lopid) 600 mg PO BID [facility] Last Admin: 11/05/16 18:46 Dose: 600 mg Acyclovir 650 mg/ Sodium (Chloride) 100 mls @ 100 mls/hr IV Q8H [facility] Stop: 11/05/16 23:59 Last Admin: 11/05/16 13:38 Dose: 100 mls/hr Insulin Aspart (Novolog) 0 unit SC TIDAC [facility] PRN Reason: Protocol Last Admin: 11/05/16 18:06 Dose: Not Given Levothyroxine Sodium (Synthroid) 150 mcg PO DAILY@0630 [facility] Last Admin: 11/05/16 05:44 Dose: 150 mcg Metformin HCl (Glucophage) 500 mg PO BID [facility] Last Admin: 11/05/16 18:45 Dose: 500 mg Metoprolol Succinate (Toprol Xl) 25 mg PO BID [facility] Last Admin: 11/05/16 18:45 Dose: 25 mg Mupirocin (Bactroban Ointment) 0 gm TOP BID [facility] Last Admin: 11/05/16 18:45 Dose: 1 applic Tramadol HCl (Ultram) 50 mg PO TID PRN PRN Reason: Pain, moderate (4-7) Last Admin: 11/05/16 18:45 Dose: 50 mg - Labs Labs: 11/05/16 07:19 11/05/16 07:19 - Head Exam Head Exam: ATRAUMATIC - Eye Exam Eye Exam: Normal appearance - ENT Exam ENT Exam: Mucous Membranes Dry - Respiratory Exam Respiratory Exam: NORMAL BREATHING PATTERN - Cardiovascular Exam Cardiovascular Exam: +S1, +S2 - GI/Abdominal Exam GI & Abdominal Exam: Normal Bowel Sounds Assessment and Plan (1) Anemia Assessment & Plan: chronic disease, CLL Status: Acute (2) CLL (chronic lymphocytic leukemia) Assessment & Plan: on Imbruvica; currently on hold for active zoster infection will continue to hold until infection clears Status: Acute
[2016-11-06] MEDS: Levothyroxine 150 MCG TAB PO SCH (05:54)
[2016-11-06] MEDS: (Novolog) Insulin Aspart, Recombinant 100 u/ml 10 ml vial SC SCH ×3 (07:28→17:11)
--- NOTE | 2016-11-06 07:48 | CP.PCM.PN ---
Subjective - Date & Time of Evaluation Date of Evaluation: 11/06/16 Objective - Vital Signs/Intake and Output Vital Signs (last 24 hours): Temp Pulse Resp BP Pulse Ox 97.5 F L 86 18 136/85 98 11/05/16 23:46 11/05/16 23:46 11/05/16 23:46 11/05/16 23:46 11/05/16 23:46 - Medications Medications: Current Medications Acetaminophen (Tylenol 325mg Tab) 650 mg PO Q6 PRN PRN Reason: Pain, Mild (1-3), fever Last Admin: 10/30/16 16:27 Dose: 650 mg Acyclovir (Zovirax) 800 mg PO TID [facility] Stop: 11/16/16 10:01 Famotidine (Pepcid) 20 mg PO BID [facility] Gabapentin (Neurontin) 300 mg PO TID [facility] Last Admin: 11/05/16 18:45 Dose: 300 mg Gemfibrozil (Lopid) 600 mg PO BID [facility] Last Admin: 11/05/16 18:46 Dose: 600 mg Insulin Aspart (Novolog) 0 unit SC TIDAC [facility] PRN Reason: Protocol Last Admin: 11/06/16 07:28 Dose: Not Given Levothyroxine Sodium (Synthroid) 150 mcg PO DAILY@0630 [facility] Last Admin: 11/06/16 05:54 Dose: 150 mcg Metformin HCl (Glucophage) 500 mg PO BID [facility] Last Admin: 11/05/16 18:45 Dose: 500 mg Metoprolol Succinate (Toprol Xl) 25 mg PO BID [facility] Last Admin: 11/05/16 18:45 Dose: 25 mg Mupirocin (Bactroban Ointment) 0 gm TOP BID [facility] Last Admin: 11/05/16 18:45 Dose: 1 applic Tramadol HCl (Ultram) 50 mg PO TID PRN PRN Reason: Pain, moderate (4-7) Last Admin: 11/06/16 05:55 Dose: 50 mg - Labs Labs: 11/05/16 07:19 11/05/16 07:19 Assessment and Plan (1) Herpes zoster Status: Acute (2) Sepsis Status: Acute (3) Diabetes mellitus Status: Acute (4) Hypertension Status: Acute (5) Hyponatremia Status: Acute (6) CLL (chronic lymphocytic leukemia) Status: Acute (7) Pancytopenia Status: Acute (8) Hyperlipidemia Status: Acute (9) Hypothyroid Status: Acute (10) Prophylactic measure Status: Acute
[2016-11-06 08:46] VITALS: RESP 20
[2016-11-06] MEDS: Metoprolol Succinate 25 mg XL Tab PO SCH (09:49)
--- NOTE | 2016-11-06 11:04 | CP.PCM.PN ---
Subjective - Date & Time of Evaluation Date of Evaluation: 11/06/16 Time of Evaluation: 11:00 - Subjective Subjective: dictated Objective - Vital Signs/Intake and Output Vital Signs (last 24 hours): Temp Pulse Resp BP Pulse Ox 97.7 F 86 20 133/86 98 11/06/16 08:00 11/06/16 08:00 11/06/16 08:00 11/06/16 08:00 11/06/16 08:00 - Medications Medications: Current Medications Acetaminophen (Tylenol 325mg Tab) 650 mg PO Q6 PRN PRN Reason: Pain, Mild (1-3), fever Last Admin: 10/30/16 16:27 Dose: 650 mg Acyclovir (Zovirax) 800 mg PO TID [facility] Stop: 11/16/16 10:01 Last Admin: 11/06/16 09:47 Dose: 800 mg Famotidine (Pepcid) 20 mg PO BID [facility] Last Admin: 11/06/16 09:49 Dose: 20 mg Gabapentin (Neurontin) 300 mg PO TID [facility] Last Admin: 11/06/16 09:49 Dose: 300 mg Gemfibrozil (Lopid) 600 mg PO BID [facility] Last Admin: 11/06/16 09:48 Dose: 600 mg Insulin Aspart (Novolog) 0 unit SC TIDAC [facility] PRN Reason: Protocol Last Admin: 11/06/16 07:28 Dose: Not Given Levothyroxine Sodium (Synthroid) 150 mcg PO DAILY@0630 [facility] Last Admin: 11/06/16 05:54 Dose: 150 mcg Metformin HCl (Glucophage) 500 mg PO BID [facility] Last Admin: 11/06/16 09:49 Dose: 500 mg Metoprolol Succinate (Toprol Xl) 25 mg PO BID [facility] Last Admin: 11/06/16 09:49 Dose: 25 mg Mupirocin (Bactroban Ointment) 0 gm TOP BID [facility] Last Admin: 11/06/16 09:52 Dose: 1 applic Tramadol HCl (Ultram) 50 mg PO TID PRN PRN Reason: Pain, moderate (4-7) Last Admin: 11/06/16 05:55 Dose: 50 mg - Labs Labs: 11/05/16 07:19 11/05/16 07:19
[2016-11-06 11:06] LABS: BASO % 0.5 % (0.0-2.0); EOS % 0.8 % (0.0-4.0); HEMATOCRIT 34.2 % (35.0-51.0); LYMPH # 1.8 K/uL (1.0-4.3); LYMPH % 47.8 % (20.0-40.0); MEAN CELL VOLUME 98.6 fL (80.0-94.0); MEAN CORPUSCULAR HGB CONC 32.5 g/dL (33.0-37.0); MEAN PLATELET VOLUME 8.2 fL (7.2-11.7); MONO # 0.4 K/uL (0.0-0.8); MONO % 9.9 % (0.0-10.0); NRBC % 0.1 % (0.0-2.0); RED CELL DISTRIBUTION WIDTH 13.9 % (11.5-14.5); WHITE BLOOD COUNT 3.7 K/uL (4.8-10.8)
[2016-11-06 11:23] LABS: CHLORIDE 95 mmol/L (98-107); POTASSIUM 4.4 mmol/L (3.6-5.2); SODIUM 135 mmol/L (132-148)
[2016-11-06 11:25] LABS: BILIRUBIN,TOTAL 0.7 mg/dL (0.2-1.3); GFR AFRICAN-AMERICAN > 60
[2016-11-06 11:26] LABS: ALB/GLOB RATIO 1.6 (1.0-2.1); ALKALINE PHOSPHATASE 77 U/L (38-126); ALT/SGPT 43 U/L (21-72); AST/SGOT 41 U/L (17-59); BLOOD UREA NITROGEN 20 mg/dL (9-20); CARBON DIOXIDE 28 mmol/L (22-30); GLUCOSE,RANDOM 167 mg/dL (75-110); PHOSPHOROUS 3.5 mg/dL (2.5-4.5); TOTAL PROTEIN 6.6 g/dL (6.3-8.3)
[2016-11-06 11:27] LABS: MAGNESIUM 2.3 mg/dL (1.6-2.3)
[2016-11-06] MEDS ORDERED: POLYETHYLENE GLYCOL 3350 17 GM/Dose PACKET PO ONE ×2 (11:37→12:00)
--- NOTE | 2016-11-06 11:55 | PN ---
DATE: 11/06/2016 The patient says he is feeling better, still has lot of pain in the right arm at the lesion. There i s no more cellulitis present. The lesions are drying up, and he got almost 10 days of IV antibiotics . Now can be switched to p.o. t.i.d. for 10 days may help, as he is immunocompromised, still complai sarah of pain and may need gabapentin as ordered for the pain. PHYSICAL EXAMINATION: VITAL SIGNS: The patient is afebrile. HEENT: Unremarkable. He denies any nausea, vomiting, or diarrhea and does have pain. Lately, no ne w lesions. GENERAL: He is alert, oriented. NECK: Supple. ANGEL is flat. LUNGS: Clear. HEART: S1, S2 regular. ABDOMEN: Soft, nontender. EXTREMITIES: Right arm still has drying up lesions extensive on the full arm, as well as the forearm extending to the wrist, which are now improved, and left arm is unremarkable. ABDOMEN: Soft, nontender. He is recovering from herpes zoster at this time, and to continue acyclovir and local ____, as med wa s not available. The patient is immunocompromised. The patient with herpes zoster and neuralgia. Evelyne Blunt MD cc: [id number] TT: 11/06/2016 11:54:24 Confirmation # [id number] Dictation # [id number]
--- NOTE | 2016-11-06 14:54 | CP.PCM.DIS ---
<AbelardojenniferKacie W. - Last Filed: 11/06/16 19:41> Provider - Provider Date of Admission: 10/28/16 10:13 Attending physician: Francisco Javier Pineda MD Primary care physician: Dr. Conteh Consults: Hematology Oncology: Dr. Azevedo Nephrology: Dr. Magallanes Infectious Disease: Dr. Blunt Time Spent in preparation of Discharge (in minutes): 45 Diagnosis - Discharge Diagnosis (1) Herpes zoster Status: Acute Comment: Patient discharged with Acyclovir 800 mg PO TID for 10 days, Gabapentin 300mg PO TID, Bactroban Ointment 2% BID. (2) Sepsis Status: Resolved (3) Diabetes mellitus Status: Chronic Comment: Resume home medications (4) Hypertension Status: Chronic Comment: Resume home medications (5) Hyponatremia Status: Resolved (6) CLL (chronic lymphocytic leukemia) Status: Chronic Comment: Patient to follow up with Dr. Azevedo as outpatient. Patient to resume Imbruvica as outpatient per Dr. Azevedo. (7) Pancytopenia Status: Chronic (8) Hyperlipidemia Status: Chronic Comment: Resume home medications (9) Hypothyroid Status: Chronic Comment: Resume home medications Hospital Course - Lab Results Lab Results: Micro Results 10/30/16 15:40 Blood Blood Culture - Final NO GROWTH AFTER 5 DAYS 10/30/16 15:40 Blood Gram Stain - Final TEST NOT PERFORMED 10/30/16 Unknown Blood Blood Culture - Final NO GROWTH AFTER 5 DAYS 10/30/16 Unknown Blood Gram Stain - Final TEST NOT PERFORMED 10/30/16 13:41 Urine,Clean Catch Urine Culture - Final No Growth (<1,000 CFU/ML) Most Recent Lab Values WBC 3.7 K/uL (4.8-10.8) L 11/06/16 10:57 RBC 3.47 Mil/uL (4.40-5.90) L 11/06/16 10:57 Hgb 11.1 g/dL (12.0-18.0) L 11/06/16 10:57 Hct 34.2 % (35.0-51.0) L 11/06/16 10:57 MCV 98.6 fL (80.0-94.0) H 11/06/16 10:57 MCH 32.0 pg (27.0-31.0) H 11/06/16 10:57 MCHC 32.5 g/dL (33.0-37.0) L 11/06/16 10:57 RDW 13.9 % (11.5-14.5) 11/06/16 10:57 Plt Count 202 K/uL (130-400) 11/06/16 10:57 MPV 8.2 fL (7.2-11.7) 11/06/16 10:57 Neut % (Auto) 41.0 % (50.0-75.0) L 11/06/16 10:57 Lymph % (Auto) 47.8 % (20.0-40.0) H 11/06/16 10:57 Carlton % (Auto) 9.9 % (0.0-10.0) 11/06/16 10:57 Eos % (Auto) 0.8 % (0.0-4.0) 11/06/16 10:57 Baso % (Auto) 0.5 % (0.0-2.0) 11/06/16 10:57 Neut # 1.5 K/uL (1.8-7.0) L 11/06/16 10:57 Lymph # 1.8 K/uL (1.0-4.3) 11/06/16 10:57 Carlton # 0.4 K/uL (0.0-0.8) 11/06/16 10:57 Eos # 0.0 K/uL (0.0-0.7) 11/06/16 10:57 Baso # 0.0 K/uL (0.0-0.2) 11/06/16 10:57 Neutrophils % (Manual) 26 % (50-75) L 10/30/16 08:29 Band Neutrophils % 16 % (0-2) H* 10/30/16 08:29 Lymphocytes % (Manual) 36 % (20-40) 10/30/16 08:29 Reactive Lymphs % 2 % (0-0) H 10/30/16 08:29 Monocytes % (Manual) 12 % (0-10) H 10/30/16 08:29 Basophils % (Manual) 1 % (0-2) 10/30/16 08:29 Metamyelocytes % 2 % (0-0) H 10/30/16 08:29 Myelocytes % 5 % (0-0) H 10/30/16 08:29 Differential Comment 10/31/16 06:41 Toxic Granulation Present 10/28/16 08:43 Platelet Estimate Slightly decreased (NORMAL) L 10/30/16 08:29 Large Platelets Present 10/28/16 08:43 Giant Platelets Present 10/28/16 08:43 RBC Morphology Normal 10/30/16 08:29 Polychromasia Slight 10/28/16 08:43 Hypochromasia (manual) Slight 10/28/16 08:43 Anisocytosis (manual) Slight 10/28/16 08:43 Microcytosis (manual) Slight 10/27/16 17:17 Macrocytosis (manual) Slight 10/27/16 17:17 Sodium 135 mmol/L (132-148) 11/06/16 10:57 Potassium 4.4 mmol/L (3.6-5.2) 11/06/16 10:57 Chloride 95 mmol/L (98-107) L 11/06/16 10:57 Carbon Dioxide 28 mmol/L (22-30) 11/06/16 10:57 Anion Gap 16 (10-20) 11/06/16 10:57 BUN 20 mg/dL (9-20) 11/06/16 10:57 Creatinine 0.7 MG/DL (0.8-1.5) L 11/06/16 10:57 Est GFR ( Amer) > 60 11/06/16 10:57 Est GFR (Non-Af Amer) > 60 11/06/16 10:57 POC Glucose (mg/dL) 132 mg/dL (65-110) H 11/06/16 11:50 Random Glucose 167 mg/dL (75-110) H 11/06/16 10:57 Serum Osmolality 275 mosm/kg (272-300) 10/30/16 13:56 Lactic Acid 2.5 mmol/L (0.7-2.1) H 10/30/16 13:56 Uric Acid 4.1 mg/dL (3.5-8.5) 11/01/16 08:47 Calcium 9.0 mg/dl (8.6-10.4) 11/06/16 10:57 Phosphorus 3.5 mg/dL (2.5-4.5) 11/06/16 10:57 Magnesium 2.3 mg/dL (1.6-2.3) 11/06/16 10:57 Iron 44 ug/dL (49-181) L 10/27/16 07:49 TIBC 304 ug/dL (250-450) 10/27/16 07:49 % Saturation 15 (20-55) L 10/27/16 07:49 Ferritin 1520.0 ng/mL 10/27/16 07:49 Total Bilirubin 0.7 mg/dL (0.2-1.3) 11/06/16 10:57 AST 41 U/L (17-59) 11/06/16 10:57 ALT 43 U/L (21-72) 11/06/16 10:57 Alkaline Phosphatase 77 U/L (38-126) 11/06/16 10:57 Troponin I < 0.0120 ng/mL (0.00-0.120) 10/26/16 14:14 NT-Pro-B Natriuret Pep 14.2 pg/mL (0-900) 10/26/16 14:14 Total Protein 6.6 g/dL (6.3-8.3) 11/06/16 10:57 Albumin 4.1 g/dL (3.5-5.0) 11/06/16 10:57 Globulin 2.6 gm/dL (2.2-3.9) 11/06/16 10:57 Albumin/Globulin Ratio 1.6 (1.0-2.1) 11/06/16 10:57 Procalcitonin 0.11 NG/ML (0.19-0.49) L 10/30/16 13:56 Urine Color Straw (YELLOW) 10/31/16 16:00 Urine Clarity Clear (Clear) 10/31/16 16:00 Urine pH 6.0 (5.0-8.0) 10/31/16 16:00 Ur Specific [place] 1.009 (1.003-1.030) 10/31/16 16:00 Urine Protein Negative mg/dL (NEGATIVE) 10/31/16 16:00 Urine Glucose (UA) Normal mg/dL (Normal) 10/31/16 16:00 Urine Ketones Negative mg/dL (NEGATIVE) 10/31/16 16:00 Urine Blood Negative (NEGATIVE) 10/31/16 16:00 Urine Nitrate Negative (NEGATIVE) 10/31/16 16:00 Urine Bilirubin Negative (NEGATIVE) 10/31/16 16:00 Urine Urobilinogen Normal mg/dL (0.2-1.0) 10/31/16 16:00 Ur Leukocyte Esterase Neg Vega/uL (Negative) 10/31/16 16:00 Urine WBC (Auto) < 1 /hpf (0-5) 10/31/16 16:00 Urine RBC (Auto) < 1 /hpf (0-3) 10/31/16 16:00 Urine Osmolality 307 mosm/kg (300-1000) 11/01/16 21:02 Ur Random Sodium 46 mmol/L 11/01/16 21:02 Ur Random Uric Acid 38.2 mg/dL 10/30/16 14:06 Ur Maxwell Porphobilinogen TNP 10/26/16 20:52 Ur Total Volume 24 hr 3000 mL 10/26/16 07:53 U Porphobilinogen 24 Hr See note mg/24 h (<2.4) 10/26/16 07:53 Ur Porphyrins Interp See note 10/26/16 07:53 IgA 70.5 mg/dL (70.0-400.0) 10/27/16 07:49 Endomysial IgA Ab Titer (()) 10/27/16 07:49 Endomysial IgA Ab Negative (Negative) 10/27/16 07:49 Tiss Transglutamin IgA 1 U/mL (<4) 10/27/16 07:49 HSV Source Description Serum 10/27/16 17:17 HSV I DNA PCR Not detected (Not Detected) 10/27/16 17:17 HSV II DNA PCR Not detected (Not Detected) 10/27/16 17:17 Mumps Virus IgG Ab 22.90 AU/mL 10/31/16 06:41 Rubella IgG Antibody 1.69 index 10/31/16 06:41 Rubeola (Measles) IgG >300.00 AU/mL 10/31/16 06:41 VZV IgM Antibody <=0.90 (<=0.90) 10/27/16 17:17 - Hospital Course Hospital Course: As per H&P "CC: rash HPI: Patient is a 61 year old male with medical history significant for 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 Patient reports the rash is affecting his upper arms and trunk. He first developed the rash approximately one year ago. He states it usually affects his arms, abdomen, and chest and describes it has pustules and "fluid-filled" small bumps that eventually leak fluid. The rash he developed yesterday was more severe with larger vesicles/bullae with some dark fluid filled lesions which is an atypical presentation for him. He admits to pruritus and pain to the right extremity where the process is most severe. Patient denies starting any new prescribed or [id number] medications. He notes his forming press operator/oncologist , Dr. Azevedo, started him on Imbruvica which has significantly helped his condition. He also denies sun exposure. Patient believes his rash is associated with his CLL. He has not tried using ointment/cream for the rash. Patient denies family history of skin disease. Patient denies fever, chills, diaphoresis , chest pain, shortness of breath, nausea, vomiting, abdominal pain, lower extremity swelling/pain." In the ED, patient was found to have mild leukocytosis. Chest xray on admission was found to have no active disease and an EKG showed normal sinus rhythm with [address] Azevedo was consulted for history of CLL. Dr. Blunt was consulted for new rash. Patient was admitted to regular floor for observation. Patient had a biopy which was positive for Herpes Zoster. Herpes simplex 1/2 PCR not detected and Herpes simplex virus culture negative. Patient was started on IV Acyclovir for [address] Blunt. Patient was started on Gabapentin and Ultram for pain. Patient was switched to PO Acyclovir. As per Dr. Blunt, patient to take PO Acyclovir for 10 days on discharged. Patient was found to have hyponatremia upon admission. Nephrology consult placed (Dr. Magallanes) who ordered Urine sodium random 50, serum osmolality 275, urine uric acid 38.2. Urine osmolality decreased from 501 (10/30) to 307 (11/01). Patient was started on IV fluids as per Dr. Magallanes. Patient's hyponatremia improved and fluids were discontinued. Dr. Azevedo was consulted for history of CLL. As per Dr. Azevedo, Imbruvica was held due to pancytopenia. Patient to resume as per Dr. Azevedo in outpatient. Patient was stable for discharge to home as per Dr. Pineda. Patient discharged on the following medications: Acyclovir 800mg one tablet orally, three times per day for 10 days Gabapentin 300mg one tablet orally, three times per day for pain. Mupirocin 2% Ointment, apply topically twice a day. Resume all home medications. Patient to follow up with primary care doctor at the [facility] within one week of discharge. Patient to follow up with Dr. Azevedo (Office Spec/Oncologist) within one week of discharge. Patient to follow up with Dr. Magallanes (Kidney doctor) within one week of discharge. Patient to follow up with Dr. Blunt (infection doctor) within one week of discharge. This is a summary of the hospital course. Please see chart for details. Discharge Exam - Head Exam Head Exam: ATRAUMATIC - Eye Exam Eye Exam: EOMI, Normal appearance - ENT Exam ENT Exam: Mucous Membranes Moist - Neck Exam Neck exam: Full Rom - Respiratory Exam Respiratory Exam: Clear to PA & Lateral. absent: Rales, Rhonchi, Wheezes - Cardiovascular Exam Cardiovascular Exam: REGULAR RHYTHM, +S1, +S2 - GI/Abdominal Exam GI & Abdominal Exam: Soft. absent: Tenderness - Extremities Exam Extremities exam: normal inspection (legs) - Back Exam Back exam: rash noted (r shoulder) - Neurological Exam Neurological exam: Alert, Oriented x3 - Psychiatric Exam Psychiatric exam: Normal Affect, Normal Mood - Skin Skin Exam: Rash Additional comments: R arm, vesicular/pustular rash extending from shoulder to hand. Erythematous and tender to touch. Discharge Plan - Discharge Medications Prescriptions: Acyclovir [Zovirax] 800 mg PO TID #30 tab Gabapentin [Neurontin] 300 mg PO TID #90 cap Mupirocin 2% Ointment [Bactroban Ointment] 1 gm TOP BID #1 tub - Follow Up Plan Condition: FAIR Disposition: HOME/ ROUTINE Instructions: Diabetes Mellitus Type 2 in Adults (DC), Myelodysplastic Syndromes (DC), Myelodysplastic Syndromes (GEN) Additional Instructions: Patient is stable for discharge to home as per Dr. Pineda. Please start the following NEW medications: Acyclovir 800mg one tablet orally, three times per day for 10 days Gabapentin 300mg one tablet orally, three times per day for pain. Mupirocin 2% Ointment, apply topically twice a day. Resume all home medications. Please follow up with your primary care doctor at the [facility] within one week of discharge. Please follow up with Dr. Azevedo (Office Spec/Oncologist) within one week of discharge. Please follow up with Dr. Magallanes (Kidney doctor) within one week of discharge. Please follow up with Dr. Blunt (infection doctor) within one week of discharge. Please return to the Emergency room if symptoms return or worsen. Instructions explained to the patient who understands and agrees. Referrals: [facility] [Provider Group] Daivs Azevedo MD [Staff Provider] - Ed Magallanes MD [Staff Provider] - Evelyne Blunt MD [Staff Provider] - Ladan Conteh MD [Staff Provider] - <Francisco Javier Pineda - Last Filed: 11/07/16 16:57> Provider - Provider Date of Admission: 10/28/16 10:13 Attending physician: Francisco Javier Pineda MD Hospital Course - Lab Results Lab Results: Micro Results 10/30/16 15:40 Blood Blood Culture - Final NO GROWTH AFTER 5 DAYS 10/30/16 15:40 Blood Gram Stain - Final TEST NOT PERFORMED 10/30/16 Unknown Blood Blood Culture - Final NO GROWTH AFTER 5 DAYS 10/30/16 Unknown Blood Gram Stain - Final TEST NOT PERFORMED 10/30/16 13:41 Urine,Clean Catch Urine Culture - Final No Growth (<1,000 CFU/ML) Most Recent Lab Values WBC 3.7 K/uL (4.8-10.8) L 11/06/16 10:57 RBC 3.47 Mil/uL (4.40-5.90) L 11/06/16 10:57 Hgb 11.1 g/dL (12.0-18.0) L 11/06/16 10:57 Hct 34.2 % (35.0-51.0) L 11/06/16 10:57 MCV 98.6 fL (80.0-94.0) H 11/06/16 10:57 MCH 32.0 pg (27.0-31.0) H 11/06/16 10:57 MCHC 32.5 g/dL (33.0-37.0) L 11/06/16 10:57 RDW 13.9 % (11.5-14.5) 11/06/16 10:57 Plt Count 202 K/uL (130-400) 11/06/16 10:57 MPV 8.2 fL (7.2-11.7) 11/06/16 10:57 Neut % (Auto) 41.0 % (50.0-75.0) L 11/06/16 10:57 Lymph % (Auto) 47.8 % (20.0-40.0) H 11/06/16 10:57 Carlton % (Auto) 9.9 % (0.0-10.0) 11/06/16 10:57 Eos % (Auto) 0.8 % (0.0-4.0) 11/06/16 10:57 Baso % (Auto) 0.5 % (0.0-2.0) 11/06/16 10:57 Neut # 1.5 K/uL (1.8-7.0) L 11/06/16 10:57 Lymph # 1.8 K/uL (1.0-4.3) 11/06/16 10:57 Carlton # 0.4 K/uL (0.0-0.8) 11/06/16 10:57 Eos # 0.0 K/uL (0.0-0.7) 11/06/16 10:57 Baso # 0.0 K/uL (0.0-0.2) 11/06/16 10:57 Neutrophils % (Manual) 26 % (50-75) L 10/30/16 08:29 Band Neutrophils % 16 % (0-2) H* 10/30/16 08:29 Lymphocytes % (Manual) 36 % (20-40) 10/30/16 08:29 Reactive Lymphs % 2 % (0-0) H 10/30/16 08:29 Monocytes % (Manual) 12 % (0-10) H 10/30/16 08:29 Basophils % (Manual) 1 % (0-2) 10/30/16 08:29 Metamyelocytes % 2 % (0-0) H 10/30/16 08:29 Myelocytes % 5 % (0-0) H 10/30/16 08:29 Differential Comment 10/31/16 06:41 Toxic Granulation Present 10/28/16 08:43 Platelet Estimate Slightly decreased (NORMAL) L 10/30/16 08:29 Large Platelets Present 10/28/16 08:43 Giant Platelets Present 10/28/16 08:43 RBC Morphology Normal 10/30/16 08:29 Polychromasia Slight 10/28/16 08:43 Hypochromasia (manual) Slight 10/28/16 08:43 Anisocytosis (manual) Slight 10/28/16 08:43 Microcytosis (manual) Slight 10/27/16 17:17 Macrocytosis (manual) Slight 10/27/16 17:17 Sodium 135 mmol/L (132-148) 11/06/16 10:57 Potassium 4.4 mmol/L (3.6-5.2) 11/06/16 10:57 Chloride 95 mmol/L (98-107) L 11/06/16 10:57 Carbon Dioxide 28 mmol/L (22-30) 11/06/16 10:57 Anion Gap 16 (10-20) 11/06/16 10:57 BUN 20 mg/dL (9-20) 11/06/16 10:57 Creatinine 0.7 MG/DL (0.8-1.5) L 11/06/16 10:57 Est GFR ( Amer) > 60 11/06/16 10:57 Est GFR (Non-Af Amer) > 60 11/06/16 10:57 POC Glucose (mg/dL) 119 mg/dL (65-110) H 11/06/16 16:51 Random Glucose 167 mg/dL (75-110) H 11/06/16 10:57 Serum Osmolality 275 mosm/kg (272-300) 10/30/16 13:56 Lactic Acid 2.5 mmol/L (0.7-2.1) H 10/30/16 13:56 Uric Acid 4.1 mg/dL (3.5-8.5) 11/01/16 08:47 Calcium 9.0 mg/dl (8.6-10.4) 11/06/16 10:57 Phosphorus 3.5 mg/dL (2.5-4.5) 11/06/16 10:57 Magnesium 2.3 mg/dL (1.6-2.3) 11/06/16 10:57 Iron 44 ug/dL (49-181) L 10/27/16 07:49 TIBC 304 ug/dL (250-450) 10/27/16 07:49 % Saturation 15 (20-55) L 10/27/16 07:49 Ferritin 1520.0 ng/mL 10/27/16 07:49 Total Bilirubin 0.7 mg/dL (0.2-1.3) 11/06/16 10:57 AST 41 U/L (17-59) 11/06/16 10:57 ALT 43 U/L (21-72) 11/06/16 10:57 Alkaline Phosphatase 77 U/L (38-126) 11/06/16 10:57 Troponin I < 0.0120 ng/mL (0.00-0.120) 10/26/16 14:14 NT-Pro-B Natriuret Pep 14.2 pg/mL (0-900) 10/26/16 14:14 Total Protein 6.6 g/dL (6.3-8.3) 11/06/16 10:57 Albumin 4.1 g/dL (3.5-5.0) 11/06/16 10:57 Globulin 2.6 gm/dL (2.2-3.9) 11/06/16 10:57 Albumin/Globulin Ratio 1.6 (1.0-2.1) 11/06/16 10:57 Procalcitonin 0.11 NG/ML (0.19-0.49) L 10/30/16 13:56 Urine Color Straw (YELLOW) 10/31/16 16:00 Urine Clarity Clear (Clear) 10/31/16 16:00 Urine pH 6.0 (5.0-8.0) 10/31/16 16:00 Ur Specific [place] 1.009 (1.003-1.030) 10/31/16 16:00 Urine Protein Negative mg/dL (NEGATIVE) 10/31/16 16:00 Urine Glucose (UA) Normal mg/dL (Normal) 10/31/16 16:00 Urine Ketones Negative mg/dL (NEGATIVE) 10/31/16 16:00 Urine Blood Negative (NEGATIVE) 10/31/16 16:00 Urine Nitrate Negative (NEGATIVE) 10/31/16 16:00 Urine Bilirubin Negative (NEGATIVE) 10/31/16 16:00 Urine Urobilinogen Normal mg/dL (0.2-1.0) 10/31/16 16:00 Ur Leukocyte Esterase Neg Vega/uL (Negative) 10/31/16 16:00 Urine WBC (Auto) < 1 /hpf (0-5) 10/31/16 16:00 Urine RBC (Auto) < 1 /hpf (0-3) 10/31/16 16:00 Urine Osmolality 307 mosm/kg (300-1000) 11/01/16 21:02 Ur Random Sodium 46 mmol/L 11/01/16 21:02 Ur Random Uric Acid 38.2 mg/dL 10/30/16 14:06 Ur Maxwell Porphobilinogen TNP 10/26/16 20:52 Ur Total Volume 24 hr 3000 mL 10/26/16 07:53 U Porphobilinogen 24 Hr See note mg/24 h (<2.4) 10/26/16 07:53 Ur Porphyrin Qnt Interp See note 10/26/16 07:53 U Total Porphyrins 24h 182.0 mcg/24 h (35.0-210.7) 10/26/16 07:53 Ur Uroporphyrin III 24h 3.3 mcg/24 h (0.7-7.4) 10/26/16 07:53 Ur Uroporphyrin I 9.3 mcg/24 h (4.1-22.4) 10/26/16 07:53 U Heptacarboxylporphyr 2.4 mcg/24 h (< OR = 3.3) 10/26/16 07:53 U Hexacarboxylporphyr See note mcg/24 h (< OR = 10) 10/26/16 07:53 U Pentacarboxylporphyr See note mcg/24 h (< OR = 4.6) 10/26/16 07:53 Ur Coproporphyrin I 26.3 mcg/24 h (7.1-48.7) 10/26/16 07:53 U Coproporphyr III 24h 140.7 mcg/24 h (11.0-148.5) 10/26/16 07:53 Ur Porphyrins Interp See note 10/26/16 07:53 IgA 70.5 mg/dL (70.0-400.0) 10/27/16 07:49 Endomysial IgA Ab Titer (()) 10/27/16 07:49 Endomysial IgA Ab Negative (Negative) 10/27/16 07:49 Tiss Transglutamin IgA 1 U/mL (<4) 10/27/16 07:49 HSV Source Description Serum 10/27/16 17:17 HSV I DNA PCR Not detected (Not Detected) 10/27/16 17:17 HSV II DNA PCR Not detected (Not Detected) 10/27/16 17:17 Mumps Virus IgG Ab 22.90 AU/mL 10/31/16 06:41 Rubella IgG Antibody 1.69 index 10/31/16 06:41 Rubeola (Measles) IgG >300.00 AU/mL 10/31/16 06:41 VZV IgM Antibody <=0.90 (<=0.90) 10/27/16 17:17 Attending/Attestation - Attestation I have personally seen and examined this patient.: Yes I have fully participated in the care of the patient.: Yes I have reviewed all pertinent clinical information, including history, physical exam and plan: Yes Notes (Text): 11/07/16 16:55 patient was seen and examined at bedside The rash has crusted patient is cleared for discharge Patient was provided with all the medication upon discharge i agree with the discharge note by the resident
[2016-11-06 16:06] VITALS: BP 128/85; PULSE 94; TEMP 97.9; O2SAT 97
[2016-11-06] MEDS ORDERED: Pneumococcal 23-Valent Vaccine IM ONE (16:25)
[2016-11-06 18:35] LABS: COPROPORPHYRIN I 26.3 mcg/24 h (7.1-48.7); COPROPORPHYRIN III 140.7 mcg/24 h (11.0-148.5); HEPTACARBOXYPORPHYRIN 2.4 mcg/24 h (< OR = 3.3); UROPORPHYRIN I 9.3 mcg/24 h (4.1-22.4); UROPORPHYRIN III 3.3 mcg/24 h (0.7-7.4)
== END 2016-11-06 17:36 | disposition home or self-care (01) | DRG 580 ==
LOC: C.ER 11:57 → INTOOBSV 14:09 → UNDOADMOB 14:09 → C.9E 14:09 → C.3T 16:19 → C.5T 10-27 15:03 → OBSVTOIN 10-28 10:13
PROVIDERS: ADMIT Internal Medicine; ATTEND Internal Medicine
PROC: 0HBBXZX Excision of Right Upper Arm Skin, External Approach, Diagnostic (ICD-10-PCS; principal; 2016-10-26)
DX: B02.7 Disseminated zoster (principal); A41.9 Sepsis, unspecified organism; D61.818 Other pancytopenia; E22.2 Syndrome of inappropriate secretion of antidiuretic hormone; D89.9 Disorder involving the immune mechanism, unspecified; C91.11 Chronic lymphocytic leukemia of B-cell type in remission; I10 Essential (primary) hypertension; L03.113 Cellulitis of right upper limb; B01.9 Varicella without complication; L08.0 Pyoderma; E11.9 Type 2 diabetes mellitus without complications; D63.8 Anemia in other chronic diseases classified elsewhere; E78.00 Pure hypercholesterolemia, unspecified; E55.9 Vitamin D deficiency, unspecified; E03.9 Hypothyroidism, unspecified; E78.5 Hyperlipidemia, unspecified; Z79.84 Long term (current) use of oral hypoglycemic drugs; Z79.899 Other long term (current) drug therapy

== ENCOUNTER 2018-09-04 09:03 | Outpatient (CLI) | payer OTHER | END 2018-09-04 09:04 | disposition home or self-care (01) | LOC: C.LAB 09:03 | DX: C91.12 Chronic lymphocytic leukemia of B-cell type in relapse (principal) ==